=== PATIENT | female | born 1975 | race Caucasian/White ===

== ENCOUNTER 2020-04-21 10:02 | Outpatient (REF) | payer OTHER, SELFPAY ==
--- NOTE | 2020-04-21 10:52 | P.BOP_ITS ---
Brief Operative Note Date of procedure: 04/21/20 Surgeon: Marisel Briones, DO This is doctor Marisel Briones. This is an ultrasound-guided fine-needle aspiration report. Patient name: Guanakito Corcoran : 1975 Date of Examination: 04/21/2020 Referring Physician Is: PCP Indication: Multinodular Thyroid Porcedure: Procedure was explained to the patient. Alternatives, the risk and benefits were discussed. Written consent was obtained. A time-out was also obtained. After sterile preparation, fine-needle aspiration of a Right Mid Pole Superior 2.0 cm thyroid nodule was performed using direct ultrasound guidance to confirm accurate needle placement. Four aspirations were made using 27 gauge needles. Samples were submitted for cytology. 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 Our attention was then turned to a Right Mid Pole Inferior 4.4 cm thyroid nodule. Fine-needle aspiration of this nodule was performed using direct ultrasound guidance to confirm accurate needle placement. Four aspirations were made using 27 gauge needles. Samples were submitted for cytology. 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 Our attention was then turned to a Left Upper Pole 2.3 cm thyroid Nodule. Fine- needle aspiration of this nodule was performed using direct ultrasound guidance to confirm accurate needle placement. Four aspirations were made using 27 gauge needles. Samples were submitted for cytology. 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 The patient tolerated the procedure well. Aftercare instructions were provided. Impression: Uncomplicated fine needle aspiration biopsy of a Right Mid Pole Superior 2.0 cm thyroid nodule, a Right Mid Pole 4.4 cm thyroid nodule and a Left Upper Pole 2.3 cm thyroid nodule under ultrasound guideance. Estimated blood loss (mL): 0
[2020-04-21] MEDS: Lidocaine HCl 1 % MPF 5 ML VIAL SUBCUT (12:26)
== END 2020-04-21 10:03 | disposition home or self-care (01) ==
LOC: HO.US 10:02
PROVIDERS: PCP Internal Medicine; Visit Provider Internal Medicine
DX: E04.2 Nontoxic multinodular goiter (principal)
CPT/HCPCS: 10005; 10006; 88172; 88173; 88177; 88305

== ENCOUNTER 2021-01-13 14:24 | Outpatient (REF) | payer OTHER, SELFPAY ==
--- NOTE | ~2021-01-13 | US_ITS ---
EXAMINATION: US VENOUS ULTRASOUND WITH DOPPLER LOWER EXTREMITY, LEFT CLINICAL INFORMATION: Pain and swelling COMPARISON: None TECHNIQUE: Ultrasound of the deep veins is performed from the hip to the calf with compression sonography and color and pulse Doppler assessment. Spectral analysis with color-flow imaging is performed. FINDINGS: There is normal venous compression and respiratory variation and augmented flow. The visualized common femoral vein, superficial femoral vein, profunda femoral vein, popliteal vein, and the trifurcation region shows no evidence of deep venous thrombosis. There is no significant popliteal fossa cyst. US/US venous duplex LE LT IMPRESSION: No DVT demonstrated in the left lower extremity.
== END 2021-01-13 14:25 | disposition home or self-care (01) ==
LOC: HO.US 14:24
PROVIDERS: Visit Provider Nurse Practitioner Primary Care
DX: I83.812 Varicose veins of left lower extremity with pain (principal); I83.892 Varicose veins of left lower extremity with other complications; I10 Essential (primary) hypertension
CPT/HCPCS: 93971

== ENCOUNTER → 2021-01-18 08:02 | Outpatient (BNVA) | payer OTHER, SELFPAY | PROVIDERS: PCP Internal Medicine; Visit Provider Internal Medicine ==

== ENCOUNTER 2021-07-04 11:24 | Outpatient (REF) | payer OTHER, SELFPAY ==
--- NOTE | ~2021-07-04 | US_ITS ---
EXAMINATION: US THYROID CLINICAL INFORMATION: Nontoxic multinodular goiter. COMPARISON: Ultrasound-guided thyroid biopsy 04/21/2020. CT soft tissue neck 01/21/2020. Thyroid ultrasound 09/10/2019. TECHNIQUE: Linear transducer grayscale and color Doppler examination with attention to the region of the thyroid. FINDINGS: SIZE: Measurements of the thyroid lobes and nodules are given in sagittal, anteroposterior and transverse dimensions respectively. The thyroid gland is enlarged. Right Thyroid Lobe: 7.5 x 3.8 x 2.7 cm, volume 41 mL. Previously 7.1 x 3.6 x 3.6 cm, volume 48 mL. Parenchyma: The gland echotexture is heterogeneous. Thyroid vascularity is increased. Left Thyroid Lobe: 7.7 x 3.1 x 2.6 cm, volume 32 mL. Previously 7.9 x 2.7 x 2.8 cm, volume 31 mL. Parenchyma: The gland echotexture is heterogeneous. Thyroid vascularity is increased. Isthmus: 1.3 cm in maximum AP dimension. Previously 1.2 cm. Estimated total number of nodules greater than or equal to 1 cm: 6 to 10. Resaw Tailer nodules are described as follows: 1. Location: Right mid pole. Size: 4.6 x 1.8 x 4.3 cm, volume 18.6 mL. Previously: 4.1 x 2.5 x 3.6 cm, volume 19.3 mL. Nodule characteristics: Composition: Solid/almost completely solid (2). Echogenicity: Cannot be determined (1). Shape: Not taller than wide (0). Margins: Smooth (0). Echogenic Foci: Punctate echogenic foci (3). ACR TI-RADS total points: 6 ACR TI-RADS category: 4 Significant change in size (>/= 20% in 2 dimensions and minimal increase of 2 mm or 50% or greater increase in volume): Change in features: Change in ACR TI-RADS risk category: 2. Location: Left upper pole. Size: 2.3 x 1.4 x 2.2 cm, volume 3.6 mL. Previously: 2.5 x 2.1 x 2.2 cm, volume 6.0 mL. Nodule characteristics: Composition: Solid/almost completely solid (2). Echogenicity: Hypoechoic (2). Shape: Not taller than wide (0). Margins: Smooth (0). Echogenic Foci: Punctate echogenic foci (3). ACR TI-RADS total points: 7 ACR TI-RADS category: 5 Significant change in size (>/= 20% in 2 dimensions and minimal increase of 2 mm or 50% or greater increase in volume): Change in features: Change in ACR TI-RADS risk category: 3. Location: Left mid pole. Size: 2.6 x 1.6 x 2.0 cm, volume 4.5 mL. Previously: 3.1 x 2.0 x 2.6 cm, volume 8.4 mL. Nodule characteristics: Composition: Solid/almost completely solid (2). Echogenicity: Isoechoic (1). Shape: Not taller than wide (0). Margins: Smooth (0). Echogenic Foci: Punctate echogenic foci (3). ACR TI-RADS total points: 6 ACR TI-RADS category: 4 Significant change in size (>/= 20% in 2 dimensions and minimal increase of 2 mm or 50% or greater increase in volume): Change in features: Change in ACR TI-RADS risk category: 4. Location: Left lower pole. Size: 1.8 x 1.3 x 2.0 cm, volume 2.3 mL. Previously: 1.8 x 1.8 x 1.5 cm, volume 2.5 mL. Nodule characteristics: Composition: Mixed cystic and solid (1). Echogenicity: Hypoechoic (2). Shape: Not taller than wide (0). Margins: Smooth (0). Echogenic Foci: None (0). ACR TI-RADS total points: 3 ACR TI-RADS category: 3 Significant change in size (>/= 20% in 2 dimensions and minimal increase of 2 mm or 50% or greater increase in volume): Change in features: Change in ACR TI-RADS risk category: 5. Location: Left lower pole. Size: 1.3 x 1.2 x 1.4 cm, volume 1.1 mL. Previously: Not documented. Nodule characteristics: Composition: Mixed cystic and solid (1). Echogenicity: Hyperechoic (1). Shape: Not taller than wide (0). Margins: Smooth (0). Echogenic Foci: None (0). ACR TI-RADS total points: 2 ACR TI-RADS category: 2 NODES: No lymphadenopathy is seen in the tissue surrounding the thyroid gland. US/US thyroid IMPRESSION: Enlarged heterogeneous thyroid gland. Newly appreciated 1.3 cm nodule in the inferior left lobe. Otherwise bilateral thyroid nodules are stable. ACR TI-RADS RECOMMENDATION REFERENCE: Ultrasound-guided fine-needle aspiration, followup ultrasound, no further follow up. * TR1 (0 point) and TR 2 (2 points): No FNA or follow up * TR3 (3 points): FNA if more than or equal to 2.5 cm in maximum dimension, followup ultrasound in 1, 3 and 5 years if 1.5 to 2.4 cm in maximum dimension. * TR4 (4-6 points): FNA if more than or equal to 1.5 cm in maximum dimension, followup ultrasound in 1, 2, 3 and 5 years if 1 to 1.4 cm in maximum dimension. * TR5 (more than or equal to 7 points): FNA if more than or equal to 1 cm in maximum dimension, followup ultrasound every year for 5 years if 0.5 to 0.9 cm in maximum dimension. * TR3, TR4 or TR5 nodules that are below the size threshold for follow up receive no follow up.
== END 2021-07-04 11:25 | disposition home or self-care (01) ==
LOC: HO.HMGCX 11:24
PROVIDERS: PCP Internal Medicine; Visit Provider Internal Medicine
DX: E04.2 Nontoxic multinodular goiter (principal)
CPT/HCPCS: 76536

== ENCOUNTER → 2021-07-24 08:32 | Outpatient (BNVA) | payer OTHER, SELFPAY | PROVIDERS: PCP Internal Medicine; Visit Provider Internal Medicine ==

== ENCOUNTER → 2021-08-07 08:40 | Outpatient (BNVA) | payer OTHER, SELFPAY | PROVIDERS: PCP Internal Medicine; Visit Provider Internal Medicine ==

== ENCOUNTER 2021-08-10 12:42 | Outpatient (REF) | payer OTHER, SELFPAY ==
[2021-08-10 14:43] LABS: Alanine Aminotransferase 18 U/L (0-31); Albumin Level 4.3 g/dL (3.5-5.0); Alkaline Phosphatase 78 U/L (39-117); Anion Gap 11 (12-20); Aspartate Amino Transferase 16 U/L (5-31); Bilirubin Total 0.3 mg/dL (0.0-1.0); Blood Urea Nitrogen 13 mg/dL (9-16); Calcium 9.5 mg/dL (8.4-10.2); Carbon Dioxide 30 mmol/L (22-29); Chloride 105 mmol/L (96-108); Estimated Glomerular Filt Rate > 60; Glucose Random 99 mg/dL (60-115); Phosphorus 4.1 mg/dL (2.7-4.5); Potassium 4.9 mmol/L (3.3-5.1); Sodium 141 mmol/L (135-145); Total Protein 7.2 g/dL (6.5-8.0)
[2021-08-10 15:06] LABS: Free T4 (Free Thyroxine) 1.08 ng/dL (0.71-1.85); Thyroid Stimulating Hormone 0.41 uIU/mL (0.32-4.0); Vitamin D 25-OH Total 36.5 ng/mL (>30)
[2021-08-11 08:35] LABS: Triiodothyronine T3 Total 129 ng/dL (76-181)
[2021-08-11 12:47] LABS: Calcium (PTHI) 9.6 mg/dL (8.6-10.2); PTHI 78 pg/mL (14-64)
== END 2021-08-10 12:43 | disposition home or self-care (01) ==
LOC: HO.LAB 12:42
PROVIDERS: PCP Internal Medicine; Visit Provider Internal Medicine
DX: E05.90 Thyrotoxicosis, unspecified without thyrotoxic crisis or storm (principal); E04.2 Nontoxic multinodular goiter; E55.9 Vitamin D deficiency, unspecified; E21.3 Hyperparathyroidism, unspecified
CPT/HCPCS: 36415; 80053; 82306; 83970; 84100; 84439; 84443; 84480

== ENCOUNTER 2021-08-14 12:18 | Outpatient (REF) | payer OTHER, SELFPAY ==
[2021-08-14 14:25] LABS: Creatinine, mg/dL 37.94
[2021-08-14 15:42] LABS: Creatinine, 24Hr Urine 0.7 G/Day (1.0-2.0); Total Volume 24 Hour Urine 1900 mL
[2021-08-15 16:21] LABS: Calcium, 24 Hr Urine 163 mg/24 h; Calcium/Creatinine Ratio 221 mg/g creat (30-275); Creatinine 24Hr Urine 0.74 g/24 h (0.50-2.15)
== END 2021-08-14 12:19 | disposition home or self-care (01) ==
LOC: HO.HMGCLNP 12:18
PROVIDERS: Visit Provider Internal Medicine
DX: E21.3 Hyperparathyroidism, unspecified (principal)
CPT/HCPCS: 82340; 82570

== ENCOUNTER 2021-08-21 12:11 | Outpatient (REF) | payer OTHER, SELFPAY ==
[2021-08-21 17:39] LABS: Creatinine, mg/dL 58.19
[2021-08-21 17:52] LABS: Creatinine, 24Hr Urine 1.3 G/Day (1.0-2.0); Total Volume 24 Hour Urine 2150 mL
[2021-08-24 16:46] LABS: Calcium, 24 Hr Urine 97 mg/24 h; Calcium/Creatinine Ratio 73 mg/g creat (30-275); Creatinine 24Hr Urine 1.33 g/24 h (0.50-2.15)
== END 2021-08-21 12:12 | disposition home or self-care (01) ==
LOC: HO.HMGCLNP 12:11
PROVIDERS: Visit Provider Internal Medicine
DX: E21.3 Hyperparathyroidism, unspecified (principal)
CPT/HCPCS: 82340; 82570

== ENCOUNTER 2021-08-22 13:26 | Outpatient (REF) | payer OTHER, SELFPAY ==
--- NOTE | ~2021-08-22 | MM_ITS ---
EXAMINATION: BONE DENSITOMETRY CLINICAL INDICATION: Hyperparathyroidism. COMPARISON: None (current study represents initial baseline exam). TECHNIQUE: Using a [employer] DXA System (software version: 13.1) manufactured by [employer], dual-energy x-ray absorptiometry was performed of the lumbar spine, left hip, and left forearm radius 33%. The images are of good technical quality. Summary results are attached. FINDINGS: AP SPINE L1-L4: BMD 0.983 g/cm2, Z-score -2.4, T-score -1.6, osteopenia. LEFT FEMUR, NECK: BMD 0.884 g/cm2, Z-score -1.0, T-score -1.1, osteopenia. LEFT FEMUR, TOTAL: BMD 1.063 g/cm2, Z-score 0.1, T-score 0.4, normal. LEFT FOREARM RADIUS 33%: BMD 0.847 g/cm2, Z-score -0.3, T-score -0.3, normal. IDENTIFIED RISK FACTORS: Early menopause, hyperparathyroid, secondary osteoporosis. HISTORY OF FRACTURE: None listed. MEDICATIONS: Vitamin D. MM/XR DEXA appendicular skeleton IMPRESSION: 1. DIAGNOSIS: Osteopenia based on the lowest T-score value of -1.6 in the lumbar spine applying World Health Organization criteria. 2. 10-YEAR FRACTURE RISK PREDICTION, FRAX: Major osteoporotic fracture (clinical spine, forearm, hip or shoulder) 3.1%. Hip fracture 0.2%. 3. Treatment Recommendations: NOF guidelines recommend consideration for treatment in postmenopausal women and men age 50 and older presenting with the following: -A hip or vertebral (clinical or morphometric) fracture. -T-score less than or equal to -2.5 at the femoral neck or spine after appropriate evaluation to exclude secondary causes. -Low bone mass at the hip or spine and a 10-year fracture probability by FRAX of greater than or equal to 3% for hip fracture or greater than or equal to 20% for major osteoporotic fracture based on the [place] adapted WHO algorithm. 4. Other Recommendations: All treatment decisions require clinical judgment and consideration of individual patient factors, including patient preferences, comorbidities, previous drug use, risk factors not captured in the FRAX model (e.g. frailty, falls, vitamin D deficiency, increased bone turnover, interval significant decline in bone density) and possible under or overestimation of fracture risk by FRAX. Additional medical evaluation for secondary cause of low bone mineral density may be appropriate. FUTURE SCAN RECOMMENDATION: People with diagnosed cases of osteoporosis or at high risk for fracture should have regular bone mineral density tests. For patients eligible for Medicare, routine testing is allowed once every 2 years. The testing frequency can be increased to one year for patients who have rapidly progressing disease, those who are receiving or discontinuing medical therapy to restore bone mass, or have additional risk factors.
== END 2021-08-22 13:27 | disposition home or self-care (01) ==
LOC: HO.MAMMO 13:26
PROVIDERS: PCP Internal Medicine; Visit Provider Internal Medicine
DX: Z13.820 Encounter for screening for osteoporosis (principal); E21.3 Hyperparathyroidism, unspecified; M85.80 Other specified disorders of bone density and structure, unspecified site; Z78.0 Asymptomatic menopausal state
CPT/HCPCS: 77081

== ENCOUNTER 2021-10-19 12:49 | Outpatient (REF) | payer OTHER, SELFPAY ==
--- NOTE | ~2021-10-19 | XR_ITS ---
EXAMINATION: XR CHEST CLINICAL INFORMATION: Screening for respiratory TB. COMPARISON: None TECHNIQUE: 2 views of the chest were obtained. FINDINGS: No significant abnormality is noted involving the heart, lungs, mediastinum, bony thorax or soft tissues. XR/XR chest 2V IMPRESSION: Unremarkable chest examination.
== END 2021-10-19 12:50 | disposition home or self-care (01) ==
LOC: HO.HMGCX 12:49
PROVIDERS: Visit Provider Internal Medicine
DX: Z11.1 Encounter for screening for respiratory tuberculosis (principal)
CPT/HCPCS: 71046

== ENCOUNTER → 2021-11-22 09:23 | Outpatient (BNVA) | payer OTHER, SELFPAY | PROVIDERS: PCP Internal Medicine; Visit Provider Internal Medicine | DX: Z13.89 Encounter for screening for other disorder (principal) ==

== ENCOUNTER 2022-01-30 09:31 | Outpatient (REF) | payer OTHER, SELFPAY ==
[2022-01-30 10:32] LABS: Alanine Aminotransferase 22 U/L (0-31); Albumin Level 4.5 g/dL (3.5-5.0); Alkaline Phosphatase 76 U/L (39-117); Anion Gap 14 (12-20); Aspartate Amino Transferase 18 U/L (5-31); Bilirubin Total 0.5 mg/dL (0.0-1.0); Blood Urea Nitrogen 12 mg/dL (9-16); Carbon Dioxide 27 mmol/L (22-29); Chloride 106 mmol/L (96-108); Estimated Glomerular Filt Rate > 60; Glucose Random 106 mg/dL (60-115); Phosphorus 3.9 mg/dL (2.7-4.5); Potassium 4.7 mmol/L (3.3-5.1); Sodium 142 mmol/L (135-145); Total Protein 7.3 g/dL (6.5-8.0)
[2022-01-30 10:53] LABS: Free T4 (Free Thyroxine) 1.13 ng/dL (0.71-1.85); Thyroid Stimulating Hormone 0.44 uIU/mL (0.32-4.0); Vitamin D 25-OH Total 29.7 ng/mL (>30)
[2022-01-31 10:42] LABS: Calcium (PTHI) 9.5 mg/dL (8.6-10.2); PTHI 97 pg/mL (16-77)
== END 2022-01-30 09:32 | disposition home or self-care (01) ==
LOC: HO.LAB 09:31
PROVIDERS: PCP Internal Medicine; Visit Provider Internal Medicine
DX: E21.3 Hyperparathyroidism, unspecified (principal); E55.9 Vitamin D deficiency, unspecified; E05.90 Thyrotoxicosis, unspecified without thyrotoxic crisis or storm
CPT/HCPCS: 36415; 80053; 82306; 83970; 84100; 84439; 84443

== ENCOUNTER 2022-02-15 10:03 | Outpatient (REF) | payer OTHER, SELFPAY ==
[2022-02-15 11:45] LABS: Total Volume 24 Hour Urine 2475 mL
[2022-02-15 12:28] LABS: Creatinine, 24Hr Urine 0.8 G/Day (1.0-2.0); Creatinine, mg/dL 34.24
[2022-02-16 17:36] LABS: Calcium, 24 Hr Urine 94 mg/24 h; Calcium/Creatinine Ratio 106 mg/g creat (30-275); Creatinine 24Hr Urine 0.89 g/24 h (0.50-2.15)
== END 2022-02-15 10:04 | disposition home or self-care (01) ==
LOC: HO.HMGCLNP 10:03
PROVIDERS: Visit Provider Internal Medicine
DX: E21.3 Hyperparathyroidism, unspecified (principal)
CPT/HCPCS: 82340; 82570

== ENCOUNTER 2022-04-25 09:31 | Outpatient (REF) | payer OTHER, SELFPAY ==
[2022-04-25 11:07] LABS: Alanine Aminotransferase 23 U/L (0-31); Albumin Level 4.2 g/dL (3.5-5.0); Alkaline Phosphatase 70 U/L (39-117); Anion Gap 13 (12-20); Aspartate Amino Transferase 17 U/L (5-31); Bilirubin Total 0.3 mg/dL (0.0-1.0); Blood Urea Nitrogen 15 mg/dL (9-16); Calcium 8.6 mg/dL (8.4-10.2); Carbon Dioxide 27 mmol/L (22-29); Chloride 106 mmol/L (96-108); Estimated Glomerular Filt Rate > 60; Glucose Random 106 mg/dL (60-115); Phosphorus 4.4 mg/dL (2.7-4.5); Potassium 4.6 mmol/L (3.3-5.1); Sodium 141 mmol/L (135-145); Total Protein 6.7 g/dL (6.5-8.0)
[2022-04-25 11:30] LABS: Free T4 (Free Thyroxine) 1.42 ng/dL (0.71-1.85); Thyroid Stimulating Hormone 0.68 uIU/mL (0.32-4.0); Vitamin D 25-OH Total 39.1 ng/mL (>30)
[2022-04-26 15:57] LABS: Calcium (PTHI) 8.4 mg/dL (8.6-10.2); PTHI 40 pg/mL (16-77)
== END 2022-04-25 09:32 | disposition home or self-care (01) ==
LOC: HO.LAB 09:31
PROVIDERS: PCP Internal Medicine; Visit Provider Internal Medicine
DX: E04.2 Nontoxic multinodular goiter (principal); E05.90 Thyrotoxicosis, unspecified without thyrotoxic crisis or storm; E21.3 Hyperparathyroidism, unspecified; E55.9 Vitamin D deficiency, unspecified
CPT/HCPCS: 36415; 80053; 82306; 83970; 84100; 84439; 84443

== ENCOUNTER 2022-05-15 13:41 | Inpatient (IN) | payer OTHER, SELFPAY ==
--- NOTE | ~2022-05-15 | CT_ITS ---
EXAMINATION: CT ABDOMEN AND PELVIS WITH CONTRAST CLINICAL INFORMATION: Diffuse abdominal pain COMPARISON: Abdominal ultrasound on 03/15/2022 TECHNIQUE: Multidetector volumetric images were obtained from the superior aspect of the liver through the pubic symphysis following administration 85 mL of Omnipaque 350 intravenous contrast. Sagittal and coronal reformatted images were obtained on the technologist's workstation. Oral contrast: No This CT examination was performed using dose optimization techniques as appropriate, variously including the following: *Automated exposure control *Adjustment of mA and/or kV according to patient size (this includes techniques or standardized protocols for targeted exams where dose is matched to indication/reason for exam; i.e. extremities or head) *Use of iterative reconstruction technique DLP: 623 mGy-cm FINDINGS: LUNG BASES: The visualized lung bases are unremarkable. LIVER, GALLBLADDER, AND BILIARY TREE: There is a 1.2 cm cyst in the right hepatic lobe. The liver is normal in size, shape, and attenuation. No focal hepatic lesion or biliary ductal dilatation is present. The gallbladder is unremarkable with no evidence of radiopaque gallstones, gallbladder wall thickening, or obvious pericholecystic inflammatory changes. PANCREAS: Unremarkable. SPLEEN: Unremarkable. ADRENAL GLANDS: Unremarkable. KIDNEYS AND URETERS: The kidneys are normal in size, shape, and attenuation. No hydronephrosis, hydroureter, or calculi seen. No perinephric stranding. BLADDER: Unremarkable. GASTROINTESTINAL TRACT: The small and large bowel are unremarkable. The appendix measures up to 0.8 cm. There are mild inflammatory changes/fat stranding in the right lower quadrant adjacent to the appendix. ABDOMINAL WALL: No significant hernia is appreciated. LYMPH NODES: Multiple mildly enlarged right lower quadrant mesenteric lymph nodes. VASCULAR: Unremarkable. PELVIC VISCERA: The uterus and adnexa are unremarkable. OSSEOUS STRUCTURES: Unremarkable. CT/CT abdomen pelvis w IV con IMPRESSION: 1. Mild inflammatory changes/fat stranding in the right lower quadrant adjacent to the appendix. The appendix measures up to 0.8 cm. Findings are suspicious for early or mild appendicitis. 2. Multiple mildly enlarged right lower quadrant mesenteric lymph nodes. Fleischner guidelines were followed.
--- NOTE | ~2022-05-15 | US_ITS ---
EXAMINATION: US ABDOMEN LIMITED CLINICAL INFORMATION: Right upper quadrant/epigastric pain. COMPARISON: None TECHNIQUE: Real-time imaging of the right upper quadrant abdominal viscera. FINDINGS: PANCREAS: Normal. LIVER: There is anechoic cyst in the right hepatic lobe measuring 1.3 x 0.8 x 1.1 cm. The liver is normal in size. The liver contour is normal. Parenchymal echogenicity is normal. No focal hepatic lesion. There is no intrahepatic biliary duct dilatation seen. GALLBLADDER: Mild thickening of the gallbladder wall. The gallbladder is physiologically distended without evidence of stones, sludge, polyps, wall thickening or pericholecystic fluid. COMMON BILE DUCT: Normal in caliber measuring 0.5 cm in diameter. RIGHT KIDNEY: Normal. No hydronephrosis. No renal calculi or focal parenchymal lesions. The kidney measures 10.4 cm in maximum dimension. FREE FLUID: None. US/US abdomen limited IMPRESSION: 1. Right hepatic lobe cyst measuring 1.3 cm. 2. Mild thickening of the gallbladder wall but no echogenic stones or tenderness in the right upper quadrant. 3. Visualized pancreas, right kidney and CBD appears unremarkable.
[2022-05-15 14:01] VITALS: BP 128/92; PULSE 87; RESP 18; TEMP 36.2; O2SAT 99; BMI 39.1
[2022-05-15 14:14] LABS: MANUAL DIFF FLAG NO
[2022-05-15 14:17] LABS: Basophils Percent Auto 0.4 % (0-2); Eosinophils Absolute Auto 0.1 X10*3/uL (0.0-0.4); Eosinophils Percent Auto 1.2 % (0-4); Hemoglobin 13.3 g/dl (12.0-16.0); Imm Gran Abs Auto 0.02 X10*3/uL (0.00-0.03); Imm Gran Pct Auto 0.2 % (0.0-0.4); Lymphocytes Percent Auto 30.6 % (20-40); Mean Corpuscular HGB Conc 32.4 g/dl (31.0-35.0); Mean Corpuscular Hemoglobin 27.3 pg (27.0-33.0); Mean Platelet Volume 9.7 fL (9.4-12.3); Monocytes Absolute Auto 0.6 X10*3/uL (0.1-1.2); Monocytes Percent Auto 6.5 % (2-11); Neutrophils Absolute Auto 5.9 x10*3/uL (2.0-8.3); Neutrophils Percent Auto 61.1 % (45-73); Platelet Count 390 X10*3/uL (160-400); Red Blood Count 4.88 X10*6/uL (4.20-5.50); Red Cell Distribution Width 12.2 % (11.0-16.0); White Blood Count 9.7 X10*3/uL (4.8-10.8)
[2022-05-15 14:49] LABS: Alanine Aminotransferase 25 U/L (0-31); Albumin Level 4.8 g/dL (3.5-5.0); Alkaline Phosphatase 79 U/L (39-117); Anion Gap 15 (12-20); Aspartate Amino Transferase 18 U/L (5-31); Bilirubin Direct 0.2 mg/dL (0.0-0.5); Bilirubin Total 0.5 mg/dL (0.0-1.0); Blood Urea Nitrogen 18 mg/dL (9-16); Carbon Dioxide 29 mmol/L (22-29); Chloride 100 mmol/L (96-108); Creatinine Clr Calc Pharmacy 94.6; Estimated Glomerular Filt Rate > 60; Glucose Random 86 mg/dL (60-115); Lipase 22 U/L (8-78); Potassium 3.7 mmol/L (3.3-5.1); Sodium 140 mmol/L (135-145); Total Protein 7.9 g/dL (6.5-8.0)
[2022-05-15 16:12] VITALS: BP 135/95; PULSE 81; RESP 16; TEMP 36.7; O2SAT 100
--- NOTE | 2022-05-15 16:38 | ED.ABDPAIN ---
HPI - Abdominal Pain General Chief Complaint: Abdominal Pain Stated Complaint: Abd pain w rectal bleed sent by PCP Time Seen by Provider: 05/15/22 16:27 Source: patient Mode of arrival: ambulatory Limitations: no limitations History of Present Illness HPI narrative: This is a very pleasant 47 years old female presented to the emergency department with chief complaint of abdominal cramps diffuse at x2 days, also liquid stools, this morning she has so little bit of blood in the stools. MD elicited complaint: abdominal pain Pertinent past history: none Onset (ago): day(s) (2) Pain Consistency: intermittent Location: diffuse Quality: cramping Radiation: none Migration to: no migration Exacerbating factors: nothing Associated symptoms: denies other symptoms Related Data Previous Rx's Medication Instructions Recorded cholecalciferol (vitamin D3) 25 25 mcg PO DAILY 30 days #30 caps 08/07/21 mcg (1,000 unit) capsule calcium carb,cit ER 600 mg-vit D3 1 tab PO BID 30 days #60 tabs 02/07/22 12.5 mcg (500 unit) tablet,ext.rel (Citracal-D3 Slow Release) Allergies Allergy/AdvReac Type Severity Reaction Status Date / Time aspirin Allergy Unknown stomach Uncoded 02/07/22 13:34 upset Review of Systems Constitutional: Reports no additional constitutional complaints Reports system reviewed and no additional complaints, except as documented Cardiovascular: Reports no additional cardiovascular complaints Respiratory: Reports no additional respiratory complaints Gastrointestinal: Reports no additional gastrointestinal complaints PMFSH Past Medical History Medical History Dysphagia HTN (hypertension) Hyperparathyroidism Multinodular thyroid Subclinical hyperthyroidism Vitamin D deficiency Surgical History No pertinent past surgical history Family History Family History Father Heart disease Mother Thyroid disease Social History Social History Alcohol intake: never Patient Tobacco Use Status: Never used Tobacco Advance Directives: No Advance Directives Information Provided: No Physical Exam ED Vital Signs: Vital Signs - 24 hr 05/15/22 14:01 05/15/22 16:12 05/15/22 17:30 Temperature 97.2 F 98.1 F 98.4 F Pulse Rate 87 81 75 Respiratory Rate 18 16 Blood Pressure 128/92 H 135/95 H 131/89 Pulse Oximetry 99 100 97 Oxygen Delivery Method Room Air Room Air Room Air BMI result Body Mass Index 39.1 Const Other: She looks well she is not toxic-appearing General: cooperative Nutritional Appearance: average body habitus Orientation/consciousness: oriented to person and patient oriented x3 HENMT Head: Yes normal to inspection Ears: hearing grossly normal bilaterally General nose exam: Normal external nose present Face and sinus: Yes normal facial exam Mouth: Normal oral and palatal mucosa present Teeth and gingiva: dentition normal Throat: Yes posterior oropharynx normal Neck Neck: Yes normal visual inspection and Yes full ROM Thyroid: Thyroid normal Chest Chest palpation & inspection: normal inspection of the chest Resp Effort & Inspection: normal respiratory effort Auscultation: clear to auscultation bilaterally Cardio Jugular venous distension: no JVD Rate: regular rate Rhythm: regular rhythm GI Inspection: Yes normal to inspection Palpation (GI): Soft to palpation, not firm and nontender Rectal Exam - Female: visual inspection normal, normal sphincter tone and heme negative stool Skin General skin exam: no rashes or lesions noted, elasticity normal and turgor normal Rashes: no rashes Neuro General: oriented to person and patient oriented x3 Cranial nerves: Yes CN's II-XII intact bilaterally Course Reevaluation(s) Reevaluation #1: spoke with surgeon Dr Rodrigues will admit Medications Administered Discontinued Medications Generic Name Dose Route Start Last Admin Trade Name Freq PRN Reason Stop Dose Admin Sodium Chloride 1,000 mls @ 999 mls/hr 05/15/22 16:45 05/15/22 18:09 Ns IVCONT 05/15/22 17:45 999 mls/hr .Q1H1M NICHOLE Administration Iohexol 100 ml 05/15/22 18:31 05/15/22 18:31 Iohexol 350 Mg/Ml 100 Ml Infus..Btl IV 05/15/22 18:32 85 ml ONCE ONE Administration MDM - Abdominal Pain Lab Data Result diagrams: 05/15/22 14:10 05/15/22 14:10 Labs: Lab Results 05/15/22 05/15/22 05/15/22 Range/Units 14:10 14:10 16:48 WBC 9.7 (4.8-10.8) X10*3/uL RBC 4.88 (4.20-5.50) X10*6/uL Hgb 13.3 (12.0-16.0) g/dl Hct 41.0 (37.0-47.0) % MCV 84.0 (80.0-98.0) fL MCH 27.3 (27.0-33.0) pg MCHC 32.4 (31.0-35.0) g/dl RDW 12.2 (11.0-16.0) % Plt Count 390 (160-400) X10*3/uL MPV 9.7 (9.4-12.3) fL Immature Gran % (Auto) 0.2 (0.0-0.4) % Neut % (Auto) 61.1 (45-73) % Lymph % (Auto) 30.6 (20-40) % [place] % (Auto) 6.5 (2-11) % Eos % (Auto) 1.2 (0-4) % Baso % (Auto) 0.4 (0-2) % Lymph # (Auto) 3.0 (1.2-4.9) X10*3/uL [place] # (Auto) 0.6 (0.1-1.2) X10*3/uL Eos # (Auto) 0.1 (0.0-0.4) X10*3/uL Baso # (Auto) 0.0 (0.0-0.2) X10*3/uL Abs Immat Gran (auto) 0.02 (0.00-0.03) X10*3/uL Absolute Neuts (auto) 5.9 (2.0-8.3) x10*3/uL Absolute Nucleated RBC 0.000 (0.0-0.012) X10*3/uL Nucleated RBC % (auto) 0.0 (0.0-0.2) /100WBC Sodium 140 (135-145) mmol/L Potassium 3.7 (3.3-5.1) mmol/L Chloride 100 (96-108) mmol/L Carbon Dioxide 29 (22-29) mmol/L Anion Gap 15 (12-20) BUN 18 H (9-16) mg/dL Creatinine 0.76 (0.5-1.4) mg/dL Estim Creat Clear Calc 94.6 Estimated GFR > 60 Random Glucose 86 (60-115) mg/dL Calcium 9.0 (8.4-10.2) mg/dL Total Bilirubin 0.5 (0.0-1.0) mg/dL Direct Bilirubin 0.2 (0.0-0.5) mg/dL AST 18 (5-31) U/L ALT 25 (0-31) U/L Alkaline Phosphatase 79 (39-117) U/L Total Protein 7.9 (6.5-8.0) g/dL Albumin 4.8 (3.5-5.0) g/dL Lipase 22 (8-78) U/L Stool Occult Blood NEGATIVE (NEGATIVE) Imaging Data CT scan - abdomen: Radiologist's impression: bowel are unremarkable. The appendix measures up to 0.8 cm. There are mild inflammatory changes/fat stranding in the right lower quadrant adjacent to the appendix. ABDOMINAL WALL: No significant hernia is appreciated.? LYMPH NODES: Multiple mildly enlarged right lower quadrant mesenteric lymph nodes. VASCULAR: Unremarkable. PELVIC VISCERA: The uterus and adnexa are unremarkable.? OSSEOUS STRUCTURES: Unremarkable.? CT/CT abdomen pelvis w IV con IMPRESSION: 1.? Mild inflammatory changes/fat stranding in the right lower quadrant adjacent to the appendix. The appendix measures up to 0.8 cm. Findings are suspicious for early or mild appendicitis. 2.? Multiple mildly enlarged right lower quadrant mesenteric lymph nodes. ? Fleischner guidelines were followed. Dictated By: Teresa Luz MD Signed By: <Electronically signed by Teresa Luz MD in [place]> 05/15/221842 DD/ 31 TD/TT:? Highway Painter: PN Discharge Plan Discharge Clinical Impression: Appendicitis Patient Disposition: Admitted As Inpatient
[2022-05-15 16:53] LABS: OBS Int Ctl Valid YES; OBS1 NEGATIVE (NEGATIVE)
--- NOTE | 2022-05-15 17:06 | PC.NURSE ---
PT reports abd pain since Saturday, today had one episode of blood in stool this AM. ABD is tender to touch in the umbilical region, + bowel sounds on all quadrants.
[2022-05-15 17:30] VITALS: BP 131/89; PULSE 75; TEMP 36.9; O2SAT 97
[2022-05-15] MEDS: 0.9 % Sodium Chloride 1,000 ML 999 ML IVCONT (18:09)
[2022-05-15] MEDS: iohexoL 350 MG/ML 100 ML INFUS..BTL IV (18:31)
--- NOTE | 2022-05-15 19:20 | P.HPGS_ITS ---
History of Present Illness History of Present Illness Date of Service: 05/16/22 Chief complaint: Abd pain w rectal bleed sent by PCP Narrative: Guanakito Corcoran is a 47 year old female originally from [place] who has a recent diagnosis of hypertension as well as a history of thyroid disease being managed by operative resection and T4 replacement. She notes that several days ago, she developed periumbilical cramping and frequent stools. The cramping progressively occurred without diarrhea but she was having soft stools. After several days of having bowel movements with great frequency, the patient saw some blood, which was certainly less than a quarter cup and never filled the bowl. She contacted her PCP who directed her to the emergency department and workup to determine etiology for abdominal pain was undertaken. She states that no one else at home is ill with any kind of a GI bug. She denies any unusual foods and denies any personal or family history of inflammatory bowel disease. She notes that her mother had gastric bleeding but is unsure of the actual etiology. She is unaware of any GI malignancy in the immediate family. Patient underwent an abdominal ultrasound that showed gallbladder wall thickening, but in the setting of normal LFTs and a normal white count, a CT scan was ordered which was interpreted as early appendicitis. I was asked to admit the patient and help direct her care. The patient has received 2 doses of Zosyn since admission. She denies any right lower quadrant pain and continues to note that she has periumbilical discomfort and frequency of bowel movements which is her presenting complaint. She clearly states that she never had any right lower quadrant pain. She does note that she has a bed-bound disabled son at home, and we discussed the importance of focusing on herself and her health since progression of appendicitis to a ruptured appendix would require her to be in the hospital for a longer period of time after surgery. The option of an websphere commerce developer was discussed with the patient, but she declined. Review of Systems Review of Systems: Yes all other systems are reviewed and are negative Constitutional: Constitutional: Reports as per [facility] Past Medical History Medical History Dysphagia HTN (hypertension) Hyperparathyroidism Multinodular thyroid Subclinical hyperthyroidism Vitamin D deficiency Family History Family History Father Heart disease Mother Thyroid disease Surgical History Surgical History No pertinent past surgical history Social History Social History Household Members: Children Housing: House Do you presently have visiting nurse or other home services: No Alcohol intake: never Patient Tobacco Use Status: Never used Tobacco Use of substances other than those prescribed or required for medical reasons: No Have you been hit, kicked, punched, or otherwise hurt by someone within the past year? If so, by whom?: No Do you feel safe in your current relationship?: Yes Is there a partner from a previous relationship who is making you feel unsafe now?: No Are you made to feel afraid or neglected: No Confucianism Healthcare Practices: Denominational Advance Directives: No Advance Directives Information Provided: No Do you have thoughts of harming others: None Do you have a plan to hurt others: No Plan Recently lost weight without trying: Yes How much weight loss: 2-13 pounds Eating poorly because of decreased appetite: Yes Nutrition screen score: 4 Nutrition Risks: No Nutritional Risk Patient : No : No Poor oral hygiene: Yes Meds Allergies Allergy/AdvReac Type Severity Reaction Status Date / Time aspirin Allergy Unknown stomach Uncoded 02/07/22 13:34 upset Home Medications Medication Instructions Recorded Confirmed Last Taken Type amlodipine 5 mg tablet 1 tab PO DAILY@1200 05/15/22 05/15/22 05/14/22 History famotidine 20 mg tablet 1 tab PO BEDTIME 05/15/22 05/15/22 05/14/22 History hydrochlorothiazide 25 mg tablet 1 tab PO DAILY 05/15/22 05/15/22 05/15/22 History levothyroxine 137 mcg tablet 1 tab PO DAILY 05/15/22 05/15/22 05/15/22 History Physical Exam Vital Signs: Vital Signs: Last Vital Signs Temp 98.4 F 05/15/22 17:30 Pulse 75 05/15/22 17:30 Resp 16 05/15/22 16:12 BP 131/89 05/15/22 17:30 Pulse Ox 97 05/15/22 17:30 O2 Del Method 05/15/22 17:30 BMI result Body Mass Index 39.1 The patient is non-toxic & in good spirits NC/AT, PERRLA, EOMI Mood, affect & judgment all appear appropriate Sclera anicteric conjunctiva pink and moist Oropharynx is clear with no aphthous ulcers, Mallampati class 4, mucous membranes moist Neck is supple with no masses, adenopathy or bruits A well-healed transfer lower neck incision with scar is noted with no masses nor tenderness Heart is regular, normal S1-S2 no rubs or murmurs Lungs are clear and equal anteriorly with no audible wheezing, rubs or dullness to percussion Abdomen is obese with no demonstrable hernias. No HSM, rebound, rigidity, guarding, masses or bruits are present. On deep palpation, no abdominal tenderness, especially in the right lower quadrant is present. The patient reports some vague periumbilical discomfort and feelings of tenesmus. Rectal exam is deferred Skin has good turgor and is free of rashes Extremities free of cyanosis clubbing edema Results Results Labs: Short CBC 05/15/22 Range/Units 14:10 WBC 9.7 (4.8-10.8) X10*3/uL Hgb 13.3 (12.0-16.0) g/dl Hct 41.0 (37.0-47.0) % Plt Count 390 (160-400) X10*3/uL BMP 05/15/22 14:10 Sodium 140 Potassium 3.7 Chloride 100 Carbon Dioxide 29 BUN 18 H Creatinine 0.76 Calcium 9.0 Liver Function 05/15/22 Range/Units 14:10 Total Bilirubin 0.5 (0.0-1.0) mg/dL Direct Bilirubin 0.2 (0.0-0.5) mg/dL AST 18 (5-31) U/L ALT 25 (0-31) U/L Alkaline Phosphatase 79 (39-117) U/L Albumin 4.8 (3.5-5.0) g/dL Abdomen CT scan report/results: report reviewed and image reviewed CT scan - pelvis: report reviewed and image reviewed Additional studies: In my review and interpretation of the CT, on the coronal images, there appears to be air in the lumen of the appendix. While there is some adipose streaking surrounding the appendix, a patent appendix on CT is unlikely to represent a typical case of appendicitis. Assessment and Plan (1) Appendicitis: Status: Acute (2) Hyperparathyroidism: Status: Acute (3) Vitamin D deficiency: Status: Acute (4) Morbid obesity due to excess calories: Status: Acute Plan Had a long discussion with the patient and also offered interpretive services if she would be more comfortable given the complexity of our discussion, but she declined this noting that she is full in [place]. While it is possible the patient might have early appendicitis, the lack of localizing peritoneal sign over the appendix makes this diagnosis equivocal in my experience. Given this, we discussed the option of a diagnostic laparoscopy and appendectomy with the inherent risks of negative exploration that would be determined by pathology, bleeding, infection, need for another operation in the event of a complication and possible need for open surgery. Initially, the patient stated she would consider this but only if I could guarantee that she would be home this evening. We also discussed the option of antibiotic treatment since there are encouraging dated that show that early appendicitis or even cate appendicitis can be treated with IV and then oral antibiotics. The pros and cons of this approach including delayed presentation and ultimately need for surgery at a later date, possibly even within a few days was discussed and apparently understood. After long discussion with the patient, she noted that at no point has she had right lower quadrant pain and she is very hesitant to consider what might be an unnecessary operation. She would prefer medical management we will continue Zosyn and NPO for now. I will reassess her in a few hours around noon. If she is stable or clinically improved, outpatient Augmentin and a regular diet may be in order. If she clinically worsens, will re-evaluate the plan. Patient is never had a colonoscopy and her obesity puts her at risk for colon polyps and the unknown family history of some sort of gastrointestinal bleeding should be evaluated as part of her routine healthcare on an outpatient basis. OR is canceled for now. Will reassess at noon. Continue NPO, IVF and Zosyn. ADDENDUM, NOON The patient is seen in re-examined. Her brother and sister (sister is an RN) are present and the patient gave permission to discuss her case with them. After summary, the patient continues to deny any right lower quadrant pain and on physical exam has no tenderness or discomfort. Will start clear liquids. The patient requested a paper antibiotic prescription since it is the day before Thanksgiving they were concerned about pharmacies closing early. We will plan to discharge if she tolerates clear liquids and she will stay on antibiotics for we can follow up with me next week. If she clinically worsens, she will report to the emergency room I will see the surgeon on-call for reassessment. Quality Stroke Does the patient have a stroke diagnosis?: No VTE Prior VTE?: No VTE Risk Level:: Surgical - moderate VTE Device Contraindication: N/A - Device Ordered VTE Drug Contraindication: Treatment Not Indicated Procedures Date of Service Date of Service: 05/16/22
[2022-05-15 20:07] LABS: COVID-19 Test Negative (Negative); IDNOW Serial# 16C4AD1C
--- NOTE | 2022-05-15 20:33 | PHA.MEDREC ---
Pharmacy Consult ? Medication Reconciliation Pharmacy has completed the medication reconciliation.
[2022-05-15] MEDS: Piperacillin Sodium/Tazobactam 3.375 GM in 0.9 % Sodium Chloride 50 ML IV (21:14)
[2022-05-15] MEDS: Lactated Ringers 1,000 ML 100 ML IVCONT (22:10)
[2022-05-16] VITALS: BP 136/81; PULSE 80; RESP 15; TEMP 36.3; O2SAT 96
[2022-05-16 00:44] VITALS: BMI 39.2
[2022-05-16] MEDS: Piperacillin Sodium/Tazobactam 3.375 GM in 0.9 % Sodium Chloride 50 ML IV ×2 (01:49→08:41)
[2022-05-16 03:32] VITALS: BP 114/61; PULSE 66; RESP 14; TEMP 36.1; O2SAT 97
[2022-05-16 07:34] VITALS: BP 130/88; PULSE 73; RESP 16; TEMP 36.6; O2SAT 99
[2022-05-16] MEDS: Lactated Ringers 1,000 ML 100 ML IVCONT (08:38)
[2022-05-16] MEDS: hydroCHLOROthiazide 25 MG TABLET PO (08:39)
[2022-05-16] MEDS: Docusate Sodium 100 MG CAPSULE PO (08:39)
[2022-05-16] MEDS: Levothyroxine Sodium 112 MCG TABLET PO (08:40)
[2022-05-16] MEDS: Levothyroxine Sodium 25 MCG TABLET PO (08:40)
[2022-05-16] MEDS: 0.9 % Sodium Chloride Flush 3 ML SYRINGE IVFLUSH (08:41)
--- NOTE | 2022-05-16 11:58 | PC.NURSE ---
Per dr Rodrigues pt intitated on clear liquid diet. Paper script for augmentin given to pt and copy placed in pt's chart
[2022-05-16 12:00] VITALS: BP 129/76; PULSE 78; RESP 18; TEMP 36.4; O2SAT 95
--- NOTE | 2022-05-16 12:44 | PM.DS ---
DS: Providers Provider Date of Service: 05/16/22 Date of admission: 05/15/22 19:27 Primary care physician: Kathy Cox MD Consults: 05/15/22 19:12 Consult to General Surgery Stat Consulting Provider: Gautam Rodrigues Reason for consultation: appendicitis Has provider been notified: Yes DS: Diagnosis Discharge Diagnosis (1) Appendicitis: Status: Acute (2) Hyperparathyroidism: Status: Acute (3) Vitamin D deficiency: Status: Acute (4) Morbid obesity due to excess calories: Status: Acute DS: Summary Hospital Course Hospital Course: See H&P for full details. Briefly, the patient is a 47-year-old woman who developed periumbilical crampy and frequency of bowel movements with some diarrhea that turned into a bloody bowel movement. With her lower abdominal pain and rectal bleeding, her PCP advised to go to the emergency room. She was noted to have a normal white blood cell count and normal workup regarding labs, however, abdominal ultrasound showed borderline gallbladder wall thickening, consequently a CT of the abdomen and pelvis was ordered which showed an 8 mm appendix with some fat streaking that was possibly consistent with early appendicitis. Patient was admitted to the hospital for bowel rest and IV antibiotics. She never had any right lower quadrant pain and continued to have some periumbilical cramping and bowel movements. We discussed options of medical management in assuming this is an early case of appendicitis and antibiotics versus operative intervention/lap appy. The patient preferred to avoid unnecessary surgery. After re-examining her and seeing there was no progression of abdominal pain to the right lower quadrant. She was started on clears and then advanced to regular diet and discharged in improved condition. Discharge instructions were discussed with the patient and her family at her request. She will continue Augmentin, 875 mg q.12 hours for 1 week, report to the emergency room if she starts to develop right lower quadrant pain, vomiting, fevers over 101, rectal bleeding that fills the toilet and otherwise will follow-up with me next 05/21/2022. Condition at the time of discharge: Improved Time Spent with Patient Time attestation: Total time spent providing and/or coordinating discharge services: Discharge coordination time: Greater than 30 minutes Quality: Safe Use of Opioids Does Pt have an Active Cancer Diagnosis on the Problem List?: No Quality: Stroke Does the patient have a stroke diagnosis?: No Physical Exam Vital Signs: Vital Signs: Last Vital Signs Temp 97.8 F 05/16/22 07:34 Pulse 73 05/16/22 07:34 Resp 16 05/16/22 07:34 BP 130/88 05/16/22 07:34 Pulse Ox 99 05/16/22 07:34 O2 Del Method 05/16/22 07:34 BMI result Body Mass Index 39.2 DS: Data Data Completed and Pending Labs on day of discharge: Laboratory Results - last 24 hr 05/15/22 05/15/22 05/15/22 14:10 14:10 16:48 WBC 9.7 RBC 4.88 Hgb 13.3 Hct 41.0 MCV 84.0 MCH 27.3 MCHC 32.4 RDW 12.2 Plt Count 390 MPV 9.7 Immature Gran % (Auto) 0.2 Neut % (Auto) 61.1 Lymph % (Auto) 30.6 Stearns % (Auto) 6.5 Eos % (Auto) 1.2 Baso % (Auto) 0.4 Lymph # (Auto) 3.0 Stearns # (Auto) 0.6 Eos # (Auto) 0.1 Baso # (Auto) 0.0 Abs Immat Gran (auto) 0.02 Absolute Neuts (auto) 5.9 Absolute Nucleated RBC 0.000 Nucleated RBC % (auto) 0.0 Sodium 140 Potassium 3.7 Chloride 100 Carbon Dioxide 29 Anion Gap 15 BUN 18 H Creatinine 0.76 Estim Creat Clear Calc 94.6 Estimated GFR > 60 Random Glucose 86 Calcium 9.0 Total Bilirubin 0.5 Direct Bilirubin 0.2 AST 18 ALT 25 Alkaline Phosphatase 79 Total Protein 7.9 Albumin 4.8 Lipase 22 Stool Occult Blood NEGATIVE COVID-19 (KRISTOPHER) COVID-19 Clin Com 05/15/22 19:45 WBC RBC Hgb Hct MCV MCH MCHC RDW Plt Count MPV Immature Gran % (Auto) Neut % (Auto) Lymph % (Auto) Stearns % (Auto) Eos % (Auto) Baso % (Auto) Lymph # (Auto) Stearns # (Auto) Eos # (Auto) Baso # (Auto) Abs Immat Gran (auto) Absolute Neuts (auto) Absolute Nucleated RBC Nucleated RBC % (auto) Sodium Potassium Chloride Carbon Dioxide Anion Gap BUN Creatinine Estim Creat Clear Calc Estimated GFR Random Glucose Calcium Total Bilirubin Direct Bilirubin AST ALT Alkaline Phosphatase Total Protein Albumin Lipase Stool Occult Blood COVID-19 (KRISTOPHER) Negative COVID-19 Clin Com See Note Discharge Plan Discharge Anticipated Discharge Date/Time: 05/16/22 13:30 Patient Disposition: Home, Self-Care Discharge Diagnosis: Abd pain, possible early appendicitis Referrals: Kathy Cox MD [Primary Care Provider] - 1 Week Gautam Rodrigues MD [Physician] - 1 Week Discharge Medications: New amoxicillin-pot clavulanate 875-125 mg Tablet 875 mg PO Q12H 7 Days Qty: 13 0RF Continued levothyroxine 137 mcg tablet 1 tab PO DAILY amlodipine 5 mg tablet 1 tab PO DAILY@1200 famotidine 20 mg tablet 1 tab PO BEDTIME hydrochlorothiazide 25 mg tablet 1 tab PO DAILY Discharge Orders: Discharge Order (Routine); Ordered 05/16/22 Ordered By: Gautam Rodrigues Diet: Regular diet Activity on Discharge: As tolerated Stand Alone Forms: Patient Portal Discharge page Activity Restrictions/Additional Instructions: You were treated by Dr. Rodrigues, office # [phone]. You were admitted to [facility] for observation due to possible early appendicitis. You have been prescribed a 1 week course of antibiotics that you will take every 12 hours until they are gone. It is unclear whether not you have appendicitis, but if your right lower abdomen by your hip bone starts to hurt, you must return to the emergency department for evaluation, which will include lab work and a repeat CT scan of your abdomen and pelvis. In addition, if your abdomen begins feel bloated, you have nausea, vomiting or bloody diarrhea, you should return to the emergency department. You should focus on staying hydrated and taking approximately 64 oz of liquids by mouth per day. Avoid alcoholic beverages including beer, Wine or hard spirits. Since caffeinated beverages will dehydrate you, you should minimize any tea or coffee until you are feeling better. If you continue to do well with liquids and year cramps near your umbilicus/belly button resolve, you can eat whatever you feel like eating, however, you should avoid overly spicy or seasoned/fried or rich/creamy foods until you see Dr. Rodrigues in the office. Please call Dr. Rodrigues saw office for an appointment for 05/21/22. You should continue taking your regular medications. Because of your age, he should see your regular doctor to discuss a colonoscopy. Most colon cancer start out as small polyps that slowly grow and can turn into a cancer over the span of years. Colorectal cancer is prevent tubal many times by removing colorectal polyps before they turn into a cancer. It is recommended that colonoscopy or other colorectal cancer screening options begin at age 45, sooner if there is a family history of colorectal cancer. Care Plan Goals: Continue antibiotics as prescribed Health Concerns: Possible early appendicitis Plan of Treatment: Antibiotics as prescribed; return for worsening pain Assessment: abd pain, possible early appendicitis, per CT
--- NOTE | 2022-05-16 14:04 | MHC.CM.PN ---
Patient was discharged prior to seeing case management.
== END 2022-05-16 14:40 | disposition home or self-care (01) | DRG 254 ==
LOC: HO.ED 19:17 → HO.EDOVER 19:44 → HO.S3 19:59
PROVIDERS: Emergency Medicine; Admitting Provider Surgery; Emergency Provider Emergency Medicine; PCP Internal Medicine; Visit Provider Surgery
DX: K37 Unspecified appendicitis (principal); E55.9 Vitamin D deficiency, unspecified; E66.01 Morbid (severe) obesity due to excess calories; Z68.39 Body mass index [BMI] 39.0-39.9, adult; E89.0 Postprocedural hypothyroidism; I10 Essential (primary) hypertension; Z20.822 Contact with and (suspected) exposure to COVID-19; Z79.890 Hormone replacement therapy; Z79.899 Other long term (current) drug therapy
CPT/HCPCS: 36415; 74177; 76705; 80048; 80076; 82272; 83690; 85025; 87635; 99218; 99285; J2543; Q9967

== ENCOUNTER → 2022-05-21 15:14 | Outpatient (BNVA) | payer OTHER, SELFPAY | PROVIDERS: PCP Internal Medicine; Referring Provider Internal Medicine; Visit Provider Surgery | DX: K37 Unspecified appendicitis (principal); E66.01 Morbid (severe) obesity due to excess calories; E21.3 Hyperparathyroidism, unspecified; Z68.39 Body mass index [BMI] 39.0-39.9, adult | CPT/HCPCS: 99212 ==

== ENCOUNTER 2022-06-26 08:50 | Outpatient (REF) | payer OTHER, SELFPAY ==
--- NOTE | ~2022-06-26 | CT_ITS ---
EXAMINATION: CT ABDOMEN AND PELVIS WITH CONTRAST CLINICAL INFORMATION: Unspecified appendicitis. Abnormal previous CT abdomen. COMPARISON: CT abdomen pelvis with IV contrast 05/15/2022. TECHNIQUE: Multidetector volumetric images were obtained from the superior aspect of the liver through the pubic symphysis following administration 85 mL of Omnipaque 350 intravenous contrast. Sagittal and coronal reformatted images were obtained on the technologist's workstation. Oral contrast: No This CT examination was performed using dose optimization techniques as appropriate, variously including the following: *Automated exposure control *Adjustment of mA and/or kV according to patient size (this includes techniques or standardized protocols for targeted exams where dose is matched to indication/reason for exam; i.e. extremities or head) *Use of iterative reconstruction technique DLP: 666 mGy-cm FINDINGS: LUNG BASES: The lung bases are clear. Heart size is normal. LIVER, GALLBLADDER, AND BILIARY TREE: The liver is normal in size, shape, and attenuation. There is 0.7 cm cyst central right hepatic lobe. It is essentially stable. No additional lesions seen. There is no intrahepatic ductal dilatation. The gallbladder is unremarkable with no evidence of radiopaque gallstones, gallbladder wall thickening, or obvious pericholecystic inflammatory changes. PANCREAS: Unremarkable. SPLEEN: Unremarkable. ADRENAL GLANDS: Unremarkable. KIDNEYS AND URETERS: The kidneys are normal in size, shape, and attenuation. No hydronephrosis, hydroureter, or calculi seen. No perinephric stranding. BLADDER: Unremarkable. GASTROINTESTINAL TRACT: There is scattered stool and gas seen in the colon without distention. Oral contrast opacified small bowel loops are normal caliber. Appendix is normal caliber. No poly-appendix fat stranding seen. Less than 5 mm lymph nodes seen in the ileocecal mesenteric.. No free air or free fluid seen. ABDOMINAL WALL: No significant hernia is appreciated. LYMPH NODES: Normal. VASCULAR: Unremarkable. PELVIS:: The uterus is anteverted. There is a heterogeneous echogenic fundal mass measuring 5.7 x 4.4 x 4.2 cm. There is no free fluid. No abnormal pelvic or inguinal lymph nodes. No evidence of hernia. OSSEOUS STRUCTURES: No aggressive lytic or sclerotic process seen. CT/CT abdomen pelvis w IV con IMPRESSION: There is a exophytic fundal heterogeneous fibroid to the right of midline close to the appendix. Appendix appears unremarkable. Recommend COOLING PIPE INSPECTOR consultation. Moderate constipation. Stable right hepatic probable small cyst. Fleischner guidelines were followed.
[2022-06-26] MEDS: iohexoL 350 MG/ML 100 ML INFUS..BTL 85 ML IV (11:08)
[2022-06-26] MEDS: Barium Sulfate Oral (Berry) 450 ML ORAL.SUSP 900 ML PO (11:09)
== END 2022-06-26 08:51 | disposition home or self-care (01) ==
LOC: HO.CT 08:50
PROVIDERS: PCP Nurse Practitioner Primary Care; Visit Provider Surgery
DX: K37 Unspecified appendicitis (principal); E66.01 Morbid (severe) obesity due to excess calories
CPT/HCPCS: 74177; Q9967

== ENCOUNTER → 2022-07-03 09:55 | Outpatient (BNVA) | payer OTHER, SELFPAY | PROVIDERS: PCP Internal Medicine; Visit Provider Surgery | DX: R93.5 Abnormal findings on diagnostic imaging of other abdominal regions, including retroperitoneum (principal); R13.10 Dysphagia, unspecified; N85.8 Other specified noninflammatory disorders of uterus; E66.01 Morbid (severe) obesity due to excess calories; Z68.41 Body mass index [BMI] 40.0-44.9, adult; E21.3 Hyperparathyroidism, unspecified; E55.9 Vitamin D deficiency, unspecified | CPT/HCPCS: 99212 ==

== ENCOUNTER → 2022-07-05 12:47 | Outpatient (BNVA) | payer OTHER, SELFPAY | PROVIDERS: PCP Internal Medicine; Visit Provider Physician Assistant | DX: Z12.11 Encounter for screening for malignant neoplasm of colon (principal); R13.10 Dysphagia, unspecified | CPT/HCPCS: 99202 ==

== ENCOUNTER 2022-07-26 12:59 | Outpatient (REF) | payer OTHER, SELFPAY ==
[2022-07-26 14:30] LABS: HCG Quantitative 4 mIU/mL
[2022-07-27 22:28] LABS: Follicle Stimulating Hormone 61.5 mIU/mL; Lutenizing Hormone 30.6 mIU/mL
[2022-07-31 09:43] LABS: HPV mRNA E6/E7 rflx Not Detected (Not Detected)
== END 2022-07-26 13:00 | disposition home or self-care (01) ==
LOC: HO.LNP 12:59
PROVIDERS: PCP Internal Medicine; Visit Provider Obstetrics & Gynecology
DX: Z01.411 Encounter for gynecological examination (general) (routine) with abnormal findings (principal); Z11.51 Encounter for screening for human papillomavirus (HPV); D25.9 Leiomyoma of uterus, unspecified; N91.2 Amenorrhea, unspecified
CPT/HCPCS: 83001; 83002; 84702; 87624; 88142; 99202

== ENCOUNTER 2022-08-22 10:26 | Outpatient (REF) | payer OTHER, SELFPAY ==
--- NOTE | ~2022-08-22 | MM_ITS ---
EXAMINATION: MM SCREENING DIGITAL BREAST TOMOSYNTHESIS, BILATERAL CLINICAL INFORMATION: Screening. Asymptomatic. The lifetime risk of breast cancer based on the Tyrer-Cuzick Model is 6%. COMPARISON: Outside mammography 04/24/2019 ([facility]). TECHNIQUE: Digital breast tomosynthesis is performed in both the craniocaudal and mediolateral oblique views along with computer-aided detection (CAD). Synthesized 2D images are generated from the tomosynthesis. FINDINGS: There are scattered areas of fibroglandular density (ACR BI-RADS breast composition Category b). There are no significant masses, abnormal calcifications, or other abnormalities. No architectural abnormality or developing density or significant change from prior outside exam. Small benign nodular asymmetry central left breast on CC view and an intramammary node posterior upper outer left breast are stable. The axilla and skin contours are unremarkable. MM/MM tomosynthesis screening BI IMPRESSION: No mammographic evidence of malignancy. ASSESSMENT: BI-RADS 2: Benign RECOMMENDATION: Routine annual mammography screening. This patient's information was entered into a reminder system with a target due date for their next mammogram.
--- NOTE | ~2022-08-22 | US_ITS ---
EXAMINATION: US PELVIS CLINICAL INFORMATION: Leiomyoma of uterus. COMPARISON: None. TECHNIQUE: Ultrasound of the pelvis is performed using both transabdominal and transvaginal transducers along with Doppler. Transvaginal imaging is performed due to inadequate visualization transabdominally. FINDINGS: Uterus: The uterus is anteverted, anteflexed and measures 8.8 cm in length, 4.8 cm in AP and 5.3 cm in transverse dimension. The double wall endometrial thickness is 0.7 cm. The uterus is smooth in contour and has normal myometrial echogenicity. There is a small hypodense lesion in the right fundus measuring 4.4 x 4.0 x 3.2 cm. Adnexa: Right ovary is not visualized Left ovary is not visualized. There is no free fluid in the cul-de-sac. US/US pelvic and transvaginal IMPRESSION: Anteverted uterus with a solitary fibroid right fundus. Both ovaries are not seen well.
== END 2022-08-22 10:27 | disposition home or self-care (01) ==
LOC: HO.US 10:26
PROVIDERS: PCP Internal Medicine; Visit Provider Obstetrics & Gynecology
DX: D25.9 Leiomyoma of uterus, unspecified (principal); E21.3 Hyperparathyroidism, unspecified; Z12.31 Encounter for screening mammogram for malignant neoplasm of breast
CPT/HCPCS: 76830; 76856; 77063; 77067

== ENCOUNTER 2022-09-05 10:38 | Outpatient (REF) | payer OTHER, SELFPAY ==
[2022-09-05 11:31] LABS: MANUAL DIFF FLAG NO
[2022-09-05 11:58] LABS: Basophils Percent Auto 0.5 % (0-2); Eosinophils Absolute Auto 0.1 X10*3/uL (0.0-0.4); Eosinophils Percent Auto 1.6 % (0-4); Hematocrit 37.1 % (37.0-47.0); Hemoglobin 12.1 g/dl (12.0-16.0); Imm Gran Abs Auto 0.01 X10*3/uL (0.00-0.03); Imm Gran Pct Auto 0.2 % (0.0-0.4); Lymphocytes Absolute Auto 2.4 X10*3/uL (1.2-4.9); Lymphocytes Percent Auto 43.9 % (20-40); Mean Corpuscular HGB Conc 32.6 g/dl (31.0-35.0); Mean Corpuscular Hemoglobin 27.3 pg (27.0-33.0); Mean Corpuscular Volume 83.6 fL (80.0-98.0); Mean Platelet Volume 10.3 fL (9.4-12.3); Monocytes Absolute Auto 0.3 X10*3/uL (0.1-1.2); Neutrophils Absolute Auto 2.7 x10*3/uL (2.0-8.3); Neutrophils Percent Auto 47.8 % (45-73); Platelet Count 348 X10*3/uL (160-400); Red Blood Count 4.44 X10*6/uL (4.20-5.50); Red Cell Distribution Width 12.6 % (11.0-16.0); White Blood Count 5.5 X10*3/uL (4.8-10.8)
[2022-09-05 12:24] LABS: HCG Quantitative 3 mIU/mL
[2022-09-05 12:42] LABS: Alanine Aminotransferase 19 U/L (0-31); Albumin Level 4.2 g/dL (3.5-5.0); Alkaline Phosphatase 63 U/L (39-117); Anion Gap 14 (12-20); Aspartate Amino Transferase 15 U/L (5-31); Bilirubin Total 0.5 mg/dL (0.0-1.0); Blood Urea Nitrogen 12 mg/dL (9-16); Carbon Dioxide 24 mmol/L (22-29); Chloride 109 mmol/L (96-108); Estimated Glomerular Filt Rate > 60; Glucose Random 90 mg/dL (60-115); Potassium 4.6 mmol/L (3.3-5.1); Sodium 142 mmol/L (135-145); Total Protein 6.7 g/dL (6.5-8.0)
== END 2022-09-05 10:39 | disposition home or self-care (01) ==
LOC: HO.LAB 10:38
PROVIDERS: Surgery; PCP Internal Medicine; Visit Provider Obstetrics & Gynecology
DX: K37 Unspecified appendicitis (principal); N91.2 Amenorrhea, unspecified; D25.9 Leiomyoma of uterus, unspecified
CPT/HCPCS: 36415; 80053; 84702; 85025; 99212

== ENCOUNTER 2022-09-10 14:29 | Outpatient (REF) | payer OTHER, SELFPAY ==
[2022-09-10 16:29] LABS: Alanine Aminotransferase 22 U/L (0-31); Albumin Level 4.5 g/dL (3.5-5.0); Alkaline Phosphatase 73 U/L (39-117); Anion Gap 16 (12-20); Aspartate Amino Transferase 18 U/L (5-31); Bilirubin Total 0.4 mg/dL (0.0-1.0); Blood Urea Nitrogen 16 mg/dL (9-16); Calcium 9.1 mg/dL (8.4-10.2); Carbon Dioxide 25 mmol/L (22-29); Chloride 105 mmol/L (96-108); Estimated Glomerular Filt Rate > 60; Glucose Random 87 mg/dL (60-115); Phosphorus 4.5 mg/dL (2.7-4.5); Potassium 4.5 mmol/L (3.3-5.1); Sodium 141 mmol/L (135-145); Total Protein 7.3 g/dL (6.5-8.0)
[2022-09-10 16:54] LABS: Free T4 (Free Thyroxine) 1.29 ng/dL (0.71-1.85)
[2022-09-10 18:47] LABS: Vitamin D 25-OH Total 36.1 ng/mL (>30)
[2022-09-12 14:24] LABS: Calcium (PTHI) 9.3 mg/dL (8.6-10.2); PTHI 51 pg/mL (16-77)
== END 2022-09-10 14:30 | disposition home or self-care (01) ==
LOC: HO.LAB 14:29
PROVIDERS: PCP Internal Medicine; Visit Provider Internal Medicine
DX: E04.2 Nontoxic multinodular goiter (principal); E55.9 Vitamin D deficiency, unspecified; E89.0 Postprocedural hypothyroidism; E21.3 Hyperparathyroidism, unspecified
CPT/HCPCS: 36415; 80053; 82306; 83970; 84100; 84439; 84443; 99212

== ENCOUNTER → 2022-09-11 09:55 | Outpatient (BNVA) | payer OTHER, SELFPAY | PROVIDERS: PCP Internal Medicine; Visit Provider Surgery | DX: N91.2 Amenorrhea, unspecified (principal); D25.9 Leiomyoma of uterus, unspecified; E89.0 Postprocedural hypothyroidism; E66.01 Morbid (severe) obesity due to excess calories | CPT/HCPCS: 99212 ==

== ENCOUNTER 2022-10-16 08:49 | Outpatient (REF) | payer OTHER, SELFPAY ==
--- NOTE | ~2022-10-16 | FL_ITS ---
EXAMINATION: FL BARIUM SWALLOW CLINICAL INFORMATION: Dysphagia COMPARISON: None available. TECHNIQUE: Barium swallow examination is performed using fluoroscopic evaluation in addition to multiple fluoroscopic spot views. The patient is imaged both upright and prone and using both thick and thin sulfate along with effervescent granules. Barium tablet was also administered. Fluoroscopy time: 0.6 minutes DAP: 6.8 Gycm2 Images: 37 FINDINGS: The swallowing mechanism is normal. No aspiration or penetration. Esophageal motility is normal. No hernia. No mass or stricture is seen. There is gastroesophageal reflux. Barium tablet passed freely into the stomach. FL/FL barium swallow IMPRESSION: Gastroesophageal reflux.
== END 2022-10-16 08:50 | disposition home or self-care (01) ==
LOC: HO.XRAY 08:49
PROVIDERS: Visit Provider Physician Assistant
DX: R13.10 Dysphagia, unspecified (principal)
CPT/HCPCS: 74220

== ENCOUNTER 2022-10-30 09:37 | Outpatient (REF) | payer OTHER, SELFPAY ==
[2022-10-30 12:32] LABS: Alanine Aminotransferase 21 U/L (0-31); Albumin Level 4.3 g/dL (3.5-5.0); Alkaline Phosphatase 61 U/L (39-117); Anion Gap 11 (12-20); Aspartate Amino Transferase 18 U/L (5-31); Bilirubin Total 0.5 mg/dL (0.0-1.0); Blood Urea Nitrogen 13 mg/dL (9-16); Calcium 8.8 mg/dL (8.4-10.2); Carbon Dioxide 28 mmol/L (22-29); Chloride 108 mmol/L (96-108); Estimated Glomerular Filt Rate > 60; Glucose Random 107 mg/dL (60-115); Phosphorus 4.3 mg/dL (2.7-4.5); Potassium 4.7 mmol/L (3.3-5.1); Sodium 142 mmol/L (135-145); Total Protein 6.9 g/dL (6.5-8.0)
[2022-10-30 12:54] LABS: Free T4 (Free Thyroxine) 1.42 ng/dL (0.71-1.85); Thyroid Stimulating Hormone 0.22 uIU/mL (0.32-4.0); Vitamin D 25-OH Total 35.7 ng/mL (>30)
[2022-11-01 17:03] LABS: Calcium (PTHI) 8.7 mg/dL (8.6-10.2); PTHI 36 pg/mL (16-77)
== END 2022-10-30 09:38 | disposition home or self-care (01) ==
LOC: HO.LAB 09:37
PROVIDERS: PCP Internal Medicine; Visit Provider Internal Medicine
DX: E55.9 Vitamin D deficiency, unspecified (principal); E89.0 Postprocedural hypothyroidism; E21.3 Hyperparathyroidism, unspecified
CPT/HCPCS: 36415; 80053; 82306; 83970; 84100; 84439; 84443

== ENCOUNTER 2022-12-11 09:34 | Outpatient (REF) | payer OTHER, SELFPAY ==
[2022-12-11 11:01] LABS: Albumin Level 4.1 g/dL (3.5-5.0)
[2022-12-11 11:18] LABS: Free T4 (Free Thyroxine) 1.19 ng/dL (0.71-1.85); Thyroid Stimulating Hormone 1.47 uIU/mL (0.32-4.0)
== END 2022-12-11 09:35 | disposition home or self-care (01) ==
LOC: HO.LAB 09:34
PROVIDERS: PCP Internal Medicine; Visit Provider Internal Medicine
DX: E55.9 Vitamin D deficiency, unspecified (principal); E89.0 Postprocedural hypothyroidism
CPT/HCPCS: 36415; 82040; 84439; 84443

== ENCOUNTER 2022-12-27 15:46 | Outpatient (REF) | payer OTHER, SELFPAY ==
--- NOTE | ~2022-12-27 | XR_ITS ---
EXAMINATION: XR SINUSES CLINICAL INFORMATION: Frontal headache. COMPARISON: None available. TECHNIQUE: 4 views of the sinuses were obtained. FINDINGS: Both frontal sinuses are partially pneumatized. Otherwise, bilateral frontal, ethmoidal, maxillary and sphenoidal sinuses as well as bilateral mastoid air cells are well aerated and radiographically appear unremarkable. The nasal cavity as well as the nasal septum appear unremarkable. XR/XR sinus min 3V IMPRESSION: Partially pneumatized frontal sinuses bilaterally, otherwise unremarkable radiographic appearance of the paranasal sinuses and bilateral mastoid air cells.
== END 2022-12-27 15:47 | disposition home or self-care (01) ==
LOC: HO.XRAY 15:46
PROVIDERS: PCP Internal Medicine; Visit Provider Internal Medicine
DX: R51.9 Headache, unspecified (principal)
CPT/HCPCS: 70220

== ENCOUNTER 2023-01-15 09:17 | Outpatient (AMB) | payer OTHER, SELFPAY ==
[2023-01-15 09:19] VITALS: BP 126/88; PULSE 82; O2SAT 98; BMI 39.9
--- NOTE | 2023-01-15 09:19 | MHC.OFFVIS ---
Intake Vital Signs 01/15/23 09:19 Height 5 ft 1 in Weight 210 lb 15.718 oz BMI 39.9 BP 126/88 Blood Pressure Location Lt brachial Position Sitting Pulse 82 Pulse Source Pulse Oximeter Pulse Oximetry (%) 98 Oxygen Delivery Method Room Air Intake Visit Reasons: F/U Hypothyroidism Intake Note: Pt presents to the office today for a follow up for hypothyroidism. Allergies aspirin Allergy (Unknown, Uncoded 01/15/23 09:22) stomach upset Medication List - Last Reconciled 01/15/23 by Remi Monteiro MD amlodipine 1 tab PO DAILY@1200 atenolol 25 mg PO QAM bisacodyl (Dulcolax (bisacodyl)) 10 mg (2 x 5 mg) PO ONCE 1 day cholecalciferol (vitamin D3) 25 mcg PO DAILY famotidine 1 tab PO BEDTIME hydrochlorothiazide 1 tab PO DAILY levothyroxine 112 mcg PO DAILY 30 days polyethylene glycol 3350 (Miralax) 238 grams PO ONCE 1 day HPI HPI Comments History of Present Illness Details 47 YO F with no significant PMHx who is seen in F/U for subclinical hyperthyroidism. She had labs checked by her PCP 04/07/19 which revealed a TSH of 0.12. These were repeated 04/08/19 with TSH of 0.22 and FT4 of 1.22. She was subsequently referred to Endocrinology. After her initial visit with me we checked full TFTs which were completely WNL. All thyroid antibodies were also assessed, which were all WNL. We repeated these a second time, and these remained completely WNL. She had a thyroid US which revealed a multinodular thyroid with multiple large nodules meeting indication for FNA biopsy. She opted to not have FNA biopsy and instead has requested a total thyroidectomy for the multinodular thyroid and the subclinical hyperthyroidism. She met with the Endocrine surgeon and was hesitant to proceed with a total thyroidectomy due to inability to find care for her disabled son. Decision was made to hold off on a total thyroidectomy until she feels she is ready, and to proceed with FNA biopsy of her most concerning appearing nodules. She underwent FNA biopsy 04/21/2020 of her R mid pole superior 2.0 cm nodule, R mid pole inferior 4.4 cm nodule and L upper pole 2.3 cm nodule. All with [place] Category II Benign cytology. She did have a CT of the neck which revealed an enlarged multinodular thyroid gland, but there was no evidence of compression of surrounding structures. She was referred to Dr. Quintanilla and underwent a total thyroidectomy 03/19/2022, surgical pathology was benign. She was started on levothyroxine 137 mcg PO daily postoperatively . She is currently on 112 mcg levothyroxine Most recent labs reveal TSH to be WNL, but PTH is mildly elevated. She takes Vitamin D 2000 IU daily. She has minimal calcium in her diet. She does report difficulty swallowing. She denies taking any biotin or other supplements. Currently denies any symptoms of hyper or hypothyroidism. She does have a family history of thyroid disease in her Sister and her Mother. US Thyroid: 07/04/2021 Right Thyroid Lobe: 7.5 x 3.8 x 2.7 cm, volume 41 mL. Previously 7.1 x 3.6 x 3.6 cm, volume 48 mL. Parenchyma: The gland echotexture is heterogeneous. Thyroid vascularity is increased. Left Thyroid Lobe: 7.7 x 3.1 x 2.6 cm, volume 32 mL. Previously 7.9 x 2.7 x 2.8 cm, volume 31 mL. Parenchyma: The gland echotexture is heterogeneous. Thyroid vascularity is increased. Isthmus: 1.3 cm in maximum AP dimension. Previously 1.2 cm. Estimated total number of nodules greater than or equal to 1 cm: 6? to 10. Internist Medical Doctor Md nodules are described as follows: 1.? Location: Right mid pole. ?? ? Size: 4.6 x 1.8 x 4.3 cm, volume 18.6 mL. ?? ? Previously: 4.1 x 2.5 x 3.6 cm, volume 19.3 mL. ?? ? Nodule characteristics: ?? ? Composition: Solid/almost completely solid (2). ?? ? Echogenicity: Cannot be determined (1). ?? ? Shape: Not taller than wide (0). ?? ? Margins: Smooth (0). ?? ? Echogenic Foci: Punctate echogenic foci (3). ?? ? ACR TI-RADS total points: 6 ?? ? ACR TI-RADS category: 4 ? Significant change in size (>/= 20% in 2 dimensions and minimal increase of 2 mm or 50% or greater increase in volume): ?? ? Change in features: ?? ? Change in ACR TI-RADS risk category: 2.? Location: Left upper pole. ?? ? Size: 2.3 x 1.4 x 2.2 cm, volume 3.6 mL. ?? ? Previously: 2.5 x 2.1 x 2.2 cm, volume 6.0 mL. ?? ? Nodule characteristics: ?? ? Composition: Solid/almost completely solid (2). ?? ? Echogenicity: Hypoechoic (2). ?? ? Shape: Not taller than wide (0). ?? ? Margins: Smooth (0). ?? ? Echogenic Foci: Punctate echogenic foci (3). ?? ? ACR TI-RADS total points: 7 ?? ? ACR TI-RADS category: 5 ? Significant change in size (>/= 20% in 2 dimensions and minimal increase of 2 mm or 50% or greater increase in volume): ?? ? Change in features: ?? ? Change in ACR TI-RADS risk category: 3.? Location: Left mid pole. ?? ? Size: 2.6 x 1.6 x 2.0 cm, volume 4.5 mL. ?? ? Previously: 3.1 x 2.0 x 2.6 cm, volume 8.4 mL. ?? ? Nodule characteristics: ?? ? Composition: Solid/almost completely solid (2). ?? ? Echogenicity: Isoechoic (1). ?? ? Shape: Not taller than wide (0). ?? ? Margins: Smooth (0). ?? ? Echogenic Foci: Punctate echogenic foci (3). ?? ? ACR TI-RADS total points: 6 ?? ? ACR TI-RADS category: 4 ? Significant change in size (>/= 20% in 2 dimensions and minimal increase of 2 mm or 50% or greater increase in volume): ?? ? Change in features: ?? ? Change in ACR TI-RADS risk category: 4.? Location: Left lower pole. ?? ? Size: 1.8 x 1.3 x 2.0 cm, volume 2.3 mL. ?? ? Previously: 1.8 x 1.8 x 1.5 cm, volume 2.5 mL. ?? ? Nodule characteristics: ?? ? Composition: Mixed cystic and solid (1). ?? ? Echogenicity: Hypoechoic (2). ?? ? Shape: Not taller than wide (0). ?? ? Margins: Smooth (0). ?? ? Echogenic Foci: None (0). ?? ? ACR TI-RADS total points: 3 ?? ? ACR TI-RADS category: 3 ? Significant change in size (>/= 20% in 2 dimensions and minimal increase of 2 mm or 50% or greater increase in volume): ?? ? Change in features: ?? ? Change in ACR TI-RADS risk category: 5.? Location: Left lower pole. ?? ? Size: 1.3 x 1.2 x 1.4 cm, volume 1.1 mL. ?? ? Previously: Not documented. ?? ? Nodule characteristics: ?? ? Composition: Mixed cystic and solid (1). ?? ? Echogenicity: Hyperechoic (1). ?? ? Shape: Not taller than wide (0). ?? ? Margins: Smooth (0). ?? ? Echogenic Foci: None (0). ?? ? ACR TI-RADS total points: 2 ?? ? ACR TI-RADS category: 2 ?? ? NODES: No lymphadenopathy is seen in the tissue surrounding the thyroid gland. CT Neck 01/21/2020: FINDINGS: The thyroid gland is enlarged. The right lobe measures 7 x 3 x 4.5 cm in longitudinal, transverse and AP dimension. The left lobe measures 0.8 x 2.3 x 2.7 cm in dimension. Thyroid isthmus measures 1.8 cm in AP dimension. The thyroid gland is heterogeneous appearing with multiple hypoechoic hyperechoic areas and lobular contour. There are multiple nodules. Largest discrete nodule measures approximately 1.6 x 1.8 cm in the mid to inferior right lobe and 1 x 1.2 cm in the superior left lobe. The trachea is midline. No tracheal compression is seen. No extension into the superior mediastinum is seen. There is shotty cervical lymphadenopathy. No enlarged lymph nodes are seen in the. The parotid glands are homogeneous in attenuation. The submandibular glands are normal. No contour abnormality or pathologic enhancement is seen within the oral cavity or pharyngeal mucosal space. The laryngeal structures are normal. The parapharyngeal fat is preserved. The carotid sheath vasculature opacify normally. No extra mucosal soft tissue mass or fluid collection is seen. No retropharyngeal fluid collection is seen. The superior mediastinum is unremarkable. The lung apices are clear. The mastoid air cells and visualized portions of the paranasal sinuses are well-aerated. The temporomandibular joints are normal. No periapical disease is identified. The imaged portions of the brain parenchyma are unremarkable. There may be congenital fusion of C2 and C3. There is degenerative spondylosis and disc space narrowing at C6-C7. Labs: Laboratory Tests 01/30/22 01/30/22 09:45 09:45 25-OH Vitamin D To madhuri 29.7 TSH 0.44 Free T4 1.13 PTH Intact 97 H Calcium (PTH Intac t) 9.5 PFSH Medical History Dysphagia HTN (hypertension) Hyperparathyroidism Multinodular thyroid Postoperative hypothyroidism Subclinical hyperthyroidism Thyroid disease Vitamin D deficiency Surgical History No pertinent past surgical history Family History Father Heart disease Mother Thyroid disease Social History Household Members: Children Housing: House Do you presently have visiting nurse or other home services: No Alcohol intake: never Patient Tobacco Use Status: Never used Tobacco Female Reproductive History Menstrual Age of Menarche: 11 Physical Exam Vital Signs: Last Vital Signs Pulse 82 01/15/23 09:19 BP 126/88 01/15/23 09:19 Pulse Ox 98 01/15/23 09:19 Oxygen Delivery Method Room Air 01/15/23 09:19 BMI result Body Mass Index 39.9 Const Other: Healed scar status post thyroidectomy. Reflexes 2+ DP Assessment & Plan Assessment & Plan (1) Postoperative hypothyroidism: Code(s): E89.0 - Postprocedural hypothyroidism Plan: This is a 47-year-old female with a history of post-surgical hypothyroidism currently being replaced on 112 mcg levothyroxine. She appears to be clinically and biochemically euthyroid. At this point, patient returned to the care of her primary care provider. She can be returned back to endocrinology as needed Medications: Refilled levothyroxine 112 mcg PO DAILY 30 tabs 3RF 30 days Coding Level of Care Code Est Pt Level 3 (77444) Diagnoses Postoperative hypothyroidism E89.0
== END 2023-01-15 09:31 | disposition home or self-care (01) ==
PROVIDERS: PCP Internal Medicine; Visit Provider Internal Medicine Endocrinology, Diabetes & Metabolism
DX: E89.0 Postprocedural hypothyroidism (principal)
CPT/HCPCS: 99213

== ENCOUNTER → 2023-01-15 09:17 | Outpatient (BNVA) | payer OTHER, SELFPAY | PROVIDERS: Visit Provider Internal Medicine Endocrinology, Diabetes & Metabolism | DX: E89.0 Postprocedural hypothyroidism (principal); Z79.899 Other long term (current) drug therapy | CPT/HCPCS: 99212 ==

== ENCOUNTER 2023-04-16 13:51 | Outpatient (REF) | payer OTHER, SELFPAY ==
--- NOTE | ~2023-04-16 | US_ITS ---
EXAMINATION: US PELVIS CLINICAL INFORMATION: Leiomyoma of uterus. COMPARISON: Pelvic ultrasound 08/22/2022. TECHNIQUE: Ultrasound of the pelvis is performed using both transabdominal and transvaginal transducers along with color Doppler. Transvaginal imaging is performed due to inadequate visualization transabdominally. FINDINGS: Uterus: The uterus is anteverted and measures 8.1 x 4.2 x 5.3 cm. Uterine size is stable compared to prior. The double wall endometrial thickness is 7 mm. There are multiple fibroids in the right fundus measuring 5.8 x 4.2 x 4.3 cm and 4.4 x 4.9 x 3.8 cm. Adnexa: The ovaries are not visible. No free fluid. US/US pelvic and transvaginal IMPRESSION: Fibroid uterus.
== END 2023-04-16 13:52 | disposition home or self-care (01) ==
LOC: HO.US 13:51
PROVIDERS: PCP Internal Medicine; Visit Provider Obstetrics & Gynecology
DX: D25.9 Leiomyoma of uterus, unspecified (principal)
CPT/HCPCS: 76830; 76856

== ENCOUNTER 2023-06-06 14:42 | Outpatient (AMB) | payer OTHER, SELFPAY ==
--- NOTE | 2023-06-06 15:11 | MHC.OFFVIS ---
Intake Vital Signs 06/06/23 15:18 Height 5 ft 1 in Weight 205 lb BMI 38.7 Intake Visit Reasons: Ultrasound follow up/DO NOT RS Allergies aspirin Allergy (Unknown, Uncoded 06/06/23 15:11) stomach upset Is last menstrual period known: No Post menopausal: Yes Do you need a note to return to daycare/school/sports/work: No HPI HPI Comments History of Present Illness Details Presenting for follow-up ultrasound regarding uterine leiomyomas identified on previous ultrasound in 09/13 which showed the following The uterus is smooth in contour and has normal myometrial echogenicity. There is a small hypodense lesion in the right fundus measuring 4.4 x 4.0 x 3.2 cm. Follow-up ultrasound done in 04/16/2023 showed the following: Uterus: The uterus is anteverted and measures 8.1 x 4.2 x 5.3 cm. Uterine size is stable compared to prior. The double wall endometrial thickness is 7 mm. There are multiple fibroids in the right fundus measuring 5.8 x 4.2 x 4.3 cm and 4.4 x 4.9 x 3.8 cm. Adnexa: The ovaries are not visible. No free fluid. PFSH Medical History Postoperative hypothyroidism Thyroid disease Hyperparathyroidism Vitamin D deficiency Dysphagia HTN (hypertension) Subclinical hyperthyroidism Multinodular thyroid Surgical History No pertinent past surgical history Family History Father Heart disease Mother Thyroid disease Social History Household Members: Children Housing: House Do you presently have visiting nurse or other home services: No Alcohol intake: never Patient Tobacco Use Status: Never used Tobacco Female Reproductive History Menstrual Age of Menarche: 11 control method: none Review of Systems Const All systems reviewed & are unremarkable except as noted in HPI and below Reports as per HPI and Reports no additional complaints GI Reports no additional complaints Reports no additional complaints Assessment & Plan Assessment & Plan (1) Uterine myoma: Code(s): D25.9 - Leiomyoma of uterus, unspecified Plan: Discussed with the patient the findings on pelvic ultrasound (1 myoma versus 2 fibroids on ultrasound 6 months apart) & the risk of myosarcoma; discussed with the patient the options of treatment including expectant management versus hysterectomy; the pros and cons, risks benefits of each approach were discussed with the patient including the fact that in cases of myosarcoma, surgical treatment can lead to early diagnosis and positively affects the prognosis; after further discussion, the patient decided to proceed with expectant management. Will repeat pelvic ultrasound periodically. Instructions given to patient to call in case any of the following occurs: pressure symptoms, abnormal uterine bleeding, pelvic pain; and to schedule a 6-8 week office follow-up appointment with repeat pelvic ultrasound . All questions answered, the patient verbalized understanding and agreed with the plan . Orders: Orders US pelvic and transvaginal 6 Weeks D25.9 - Leiomyoma of uterus, unspecified Coding Level of Care Code Est Pt Level 3 (01967) Diagnoses Uterine myoma D25.9
[2023-06-06 15:18] VITALS: BMI 38.7
== END 2023-06-06 15:49 | disposition home or self-care (01) ==
PROVIDERS: Visit Provider Obstetrics & Gynecology
DX: D25.9 Leiomyoma of uterus, unspecified (principal)
CPT/HCPCS: 99213

== ENCOUNTER → 2023-06-06 14:42 | Outpatient (BNVA) | payer OTHER, SELFPAY | PROVIDERS: Visit Provider Obstetrics & Gynecology | DX: D25.9 Leiomyoma of uterus, unspecified (principal) | CPT/HCPCS: 99212 ==

== ENCOUNTER 2023-08-15 12:53 | Outpatient (REF) | payer MEDICAID, SELFPAY ==
--- NOTE | ~2023-08-15 | US_ITS ---
EXAMINATION: US PELVIS INFORMATION: Leiomyoma, postmenopausal COMPARISON: 04/16/2023. TECHNIQUE: Ultrasound of the pelvis is performed using both transabdominal and transvaginal transducers along with Doppler. Transvaginal imaging is performed due to inadequate visualization transabdominally. FINDINGS: The uterus measures 11.3 x 4.0 x 5.7 cm, volume 174.9 mL. A 4.0 x 3.8 x 3.7 cm fibroid previously measured 4.4 x 4.9 x 3.8 cm. A 7.1 x 5.5 x 5.6 cm fibroid previously measured 5.8 x 4.2 x 4.3 cm. No significant free fluid. Bilateral ovaries were not visualized. Endometrial thickness is 3 mm, although endometrium is difficult to visualize due to fibroids and uterine heterogeneity. US/US pelvic and transvaginal IMPRESSION: 1. Enlarged, heterogeneous uterus with multiple fibroids, largest 7.1 cm. 2. Endometrial thickness is 3 mm, although evaluation is limited as the endometrium is difficult to visualize due to fibroids and uterine heterogeneity. 3. Bilateral ovaries were not visualized.
== END 2023-08-15 12:54 | disposition home or self-care (01) ==
LOC: HO.US 12:53
PROVIDERS: PCP Internal Medicine; Visit Provider Obstetrics & Gynecology
DX: D25.9 Leiomyoma of uterus, unspecified (principal)
CPT/HCPCS: 76830; 76856

== ENCOUNTER 2023-09-12 12:44 | Outpatient (AMB) | payer MEDICAID, SELFPAY ==
--- NOTE | 2023-09-12 13:02 | A.OFFVIS_ITS ---
Intake Vital Signs 09/12/23 13:03 Height 5 ft 1 in Weight 205 lb BMI 38.7 BP 118/66 Blood Pressure Location Lt brachial Position Sitting Intake Visit Reasons: US follow up Information Interpreted: non-clinical & clinical It Service Technician: It Service Technician Present Accompanied by: Self / Same As Patient Allergies aspirin Allergy (Unknown, Uncoded 09/12/23 13:04) stomach upset Patient : No HPI HPI Comments History of Present Illness Details Presenting for follow-up pelvic ultrasound done in 08/16 compared to previous 1 done in 04/15. The pelvic ultrasound showed the following The uterus measures 11.3 x 4.0 x 5.7 cm, volume 174.9 mL. A 4.0 x 3.8 x 3.7 cm fibroid previously measured 4.4 x 4.9 x 3.8 cm. A 7.1 x 5.5 x 5.6 cm fibroid previously me asured 5.8 x 4.2 x 4.3 cm. No significant free fluid. Bilateral ovaries were not visualized. Endometrial thickness is 3 mm, although endometrium is difficult to visualize due to fibroids and uterine heterogeneity. The patient has no complaints no bulk symptoms a pelvic pain or pressure or abnormal uterine bleeding [facility] Medical History Postoperative hypothyroidism Thyroid disease Hyperparathyroidism Vitamin D deficiency Dysphagia HTN (hypertension) Subclinical hyperthyroidism Multinodular thyroid Surgical History No pertinent past surgical history Family History Father Heart disease Mother Thyroid disease Social History Household Members: Children Housing: House Do you presently have visiting nurse or other home services: No Alcohol intake: never Patient Tobacco Use Status: Never used Tobacco Patient : No Female Reproductive History Menstrual Age of Menarche: 11 Review of Systems Const All systems reviewed & are unremarkable except as noted in HPI and below Reports as per HPI and Reports no additional complaints GI Reports no additional complaints Reports no additional complaints Physical Exam Vital Signs: Last Vital Signs BP 118/66 09/12/23 13:03 BMI result Body Mass Index 38.7 Assessment & Plan Assessment & Plan (1) Uterine myoma: Code(s): D25.9 - Leiomyoma of uterus, unspecified Plan: Discussed with the patient the findings on pelvic ultrasound & the risk of myosa rcoma; discussed with the patient the options of treatment including expectant management versus hysterectomy; the pros and cons, risks benefits of each approach were discussed with the patient including the fact that in cases of myosarcoma, surgical treatment can lead to early diagnosis and positively affects the prognosis; after further discussion, the patient decided to proceed with expectant management. Will repeat pelvic ultrasound in 6. Instructions given to patient to call in case any of the following occurs: pressure symptoms, abnormal uterine bleeding, pelvic pain; and to schedule six-month ultrasound follow-up appointment . All questions answered, the patient verbalized understanding and agreed with the plan . Orders: Orders US pelvic and transvaginal Today D25.9 - Leiomyoma of uterus, unspecified Coding Level of Care Code Est Pt Level 3 (37093) Diagnoses Uterine myoma D25.9
[2023-09-12 13:03] VITALS: BP 118/66; BMI 38.7
== END 2023-09-12 13:59 | disposition home or self-care (01) ==
PROVIDERS: PCP Internal Medicine; Visit Provider Obstetrics & Gynecology
DX: D25.9 Leiomyoma of uterus, unspecified (principal)
CPT/HCPCS: 99213

== ENCOUNTER → 2023-09-12 12:44 | Outpatient (BNVA) | payer MEDICAID, SELFPAY | PROVIDERS: PCP Internal Medicine; Visit Provider Obstetrics & Gynecology | DX: D25.9 Leiomyoma of uterus, unspecified (principal) | CPT/HCPCS: 99212 ==

== ENCOUNTER 2024-02-13 12:41 | Outpatient (REF) | payer MEDICAID, SELFPAY ==
--- NOTE | ~2024-02-13 | US_ITS ---
EXAMINATION: US PELVIS CLINICAL INFORMATION: Leiomyoma of uterus. COMPARISON: Pelvic ultrasound 08/15/2023. TECHNIQUE: Ultrasound of the pelvis is performed using both transabdominal and transvaginal transducers along with Doppler. Transvaginal imaging is performed due to inadequate visualization transabdominally. FINDINGS: UTERUS: The uterus is anteverted and measures 11.8 x 5.7 x 5.0 cm. The double wall endometrial thickness could not be measured as the endometrium was poorly seen. 2 fundal fibroids are seen which appear decreased in size compared to prior measuring 3.6 x 3.4 x 3.7 cm (previously 4.0 x 3.8 x 3.7 cm) and 3.2 x 4.3 x 2.9 cm (previously 7.1 x 7.5 x 5.6 cm). Neither ovary could be seen. No free fluid present. US/US pelvic and transvaginal IMPRESSION: Fundal fibroids appear decreased in size. Neither ovary could be seen. Electronically signed by: Ulices Mora MD 02/25/2024 04:29 PM EDT
== END 2024-02-13 12:42 | disposition home or self-care (01) ==
LOC: HO.US 12:41
PROVIDERS: PCP Internal Medicine; Visit Provider Obstetrics & Gynecology
DX: D25.9 Leiomyoma of uterus, unspecified (principal)
CPT/HCPCS: 76830; 76856

== ENCOUNTER 2024-02-27 13:18 | Outpatient (AMB) | payer MEDICAID, SELFPAY ==
[2024-02-27 13:27] VITALS: BMI 38.3
--- NOTE | 2024-02-27 13:27 | A.OFFVIS_ITS ---
Vital Signs 02/27/24 13:27 Height 5 ft 1 in Weight 202 lb 13.204 oz BMI 38.3 Intake Visit Reasons: US follow up Allergies aspirin Allergy (Unknown, Uncoded 09/12/23 13:04) stomach upset HPI Comments Details: Presenting for follow-up ultrasound done recently regarding myomas. The patient is doing well with no complaints no abnormal uterine bleeding, pelvic pressure or pain. Pelvic ultrasound done in 02/14 showed the following: UTERUS: The uterus is anteverted and measures 11.8 x 5.7 x 5.0 cm. The double wall endometrial thickness could not be measured as the endometrium was poorly seen. 2 fundal fibroids are seen which appear decreased in size compared to prior measuring 3.6 x 3.4 x 3.7 cm (previously 4.0 x 3.8 x 3.7 cm) and 3.2 x 4.3 x 2.9 cm (previously 7.1 x 7.5 x 5.6 cm). Neither ovary could be seen. No free fluid present. [facility] Medical History Postoperative hypothyroidism Thyroid disease Hyperparathyroidism Vitamin D deficiency Dysphagia HTN (hypertension) Subclinical hyperthyroidism Multinodular thyroid Surgical History No pertinent past surgical history Family History Father Heart disease Mother Thyroid disease Social History Household Members: Children Housing: House Do you presently have visiting nurse or other home services: No Alcohol intake: never Patient Tobacco Use Status: Never used Tobacco Female Reproductive History Menstrual Age of Menarche: 11 Review of Systems Const All systems reviewed & are unremarkable except as noted in HPI and below Reports as per HPI and Reports no additional complaints GI Reports no additional complaints Reports no additional complaints Physical Exam Vital Signs: BMI result Body Mass Index 38.3 Assessment & Plan Assessment & Plan (1) Uterine myoma: Code(s): D25.9 - Leiomyoma of uterus, unspecified Category: Medical Plan: Discussed with the patient the findings on pelvic ultrasound & the risk of myosarcoma; discussed with the patient the options of treatment including expectant management versus hysterectomy; the pros and cons, risks benefits of each approach were discussed with the patient including the fact that in cases of myosarcoma, surgical treatment can lead to early diagnosis and positively affects the prognosis; after further discussion, the patient decided to proceed with expectant management. Will repeat pelvic ultrasound periodically. Instructions given to patient to call in case any of the following occurs: pressure symptoms, abnormal uterine bleeding, pelvic pain; and to schedule a 12 months pelvic ultrasound and a follow-up appointment . All questions answered, the patient verbalized understanding and agreed with the plan . Orders: Orders US pelvic and transvaginal 1 Year D25.9 - Leiomyoma of uterus, unspecified Coding Level of Care Code Est Pt Level 3 (35255) Diagnoses Uterine myoma D25.9
== END 2024-02-27 13:51 | disposition home or self-care (01) ==
PROVIDERS: PCP Internal Medicine; Referring Provider Internal Medicine; Visit Provider Obstetrics & Gynecology
DX: D25.9 Leiomyoma of uterus, unspecified (principal)
CPT/HCPCS: 99213

== ENCOUNTER → 2024-02-27 13:18 | Outpatient (BNVA) | payer MEDICAID, SELFPAY | PROVIDERS: PCP Internal Medicine; Visit Provider Obstetrics & Gynecology | DX: D25.9 Leiomyoma of uterus, unspecified (principal) | CPT/HCPCS: 99212 ==

== ENCOUNTER 2024-04-28 11:55 | Outpatient (REF) | payer MEDICAID, SELFPAY ==
[2024-04-28 14:28] LABS: MANUAL DIFF FLAG NO
[2024-04-28 14:38] LABS: Basophils Absolute Auto 0.1 X10*3/uL (0.0-0.2); Basophils Percent Auto 0.6 % (0-2); Eosinophils Absolute Auto 0.1 X10*3/uL (0.0-0.4); Eosinophils Percent Auto 1.6 % (0-4); Hematocrit 38.7 % (37.0-47.0); Hemoglobin 12.3 g/dl (12.0-16.0); Imm Gran Abs Auto 0.03 X10*3/uL (0.00-0.03); Imm Gran Pct Auto 0.4 % (0.0-0.4); Lymphocytes Absolute Auto 2.6 X10*3/uL (1.2-4.9); Lymphocytes Percent Auto 32.1 % (20-40); Mean Corpuscular HGB Conc 31.8 g/dl (31.0-35.0); Mean Corpuscular Hemoglobin 27.7 pg (27.0-33.0); Mean Corpuscular Volume 87.2 fL (80.0-98.0); Mean Platelet Volume 10.7 fL (9.4-12.3); Monocytes Absolute Auto 0.5 X10*3/uL (0.1-1.2); Monocytes Percent Auto 5.5 % (2-11); Neutrophils Absolute Auto 4.9 x10*3/uL (2.0-8.3); Neutrophils Percent Auto 59.8 % (45-73); Platelet Count 375 X10*3/uL (160-400); Red Blood Count 4.44 X10*6/uL (4.20-5.50); Red Cell Distribution Width 12.8 % (11.0-16.0); White Blood Count 8.1 X10*3/uL (4.8-10.8)
[2024-04-28 15:10] LABS: Alanine Aminotransferase 34 U/L (0-31); Albumin Level 4.4 g/dL (3.5-5.0); Alkaline Phosphatase 65 U/L (39-117); Anion Gap 14 (12-20); Aspartate Amino Transferase 24 U/L (5-31); Bilirubin Total 0.3 mg/dL (0.0-1.0); Blood Urea Nitrogen 13 mg/dL (9-16); Calcium 9.7 mg/dL (8.4-10.2); Carbon Dioxide 26 mmol/L (22-29); Chloride 104 mmol/L (96-108); Cholesterol 274 mg/dL (<200); Estimated Glomerular Filt Rate > 60; Glucose Random 85 mg/dL (60-115); HDL Cholesterol 46 mg/dL (>40); LDL Cholesterol Calculated 177 mg/dL (<100); Potassium 3.9 mmol/L (3.3-5.1); Sodium 140 mmol/L (135-145); TSH reflex Free T4 1.89 uIU/mL (0.32-4.0); Total Protein 7.6 g/dL (6.5-8.0); Triglycerides 258 mg/dL (<150); Vitamin D 25-OH Total 56.6 ng/mL (>30)
[2024-04-29 08:38] LABS: HIV AB/AG Nonreactive (Nonreactive); HIV Num 1 0.05 S/CO (0.00-0.99)
== END 2024-04-28 11:56 | disposition home or self-care (01) ==
LOC: HO.CHCLDS 11:55
PROVIDERS: Visit Provider Internal Medicine
DX: I10 Essential (primary) hypertension (principal); E03.9 Hypothyroidism, unspecified
CPT/HCPCS: 36415; 80053; 80061; 82306; 84443; 85025; 87389

== ENCOUNTER 2024-05-25 15:00 | Outpatient (AMB) | payer OTHER, SELFPAY ==
[2024-05-25 15:32] VITALS: BP 116/74; PULSE 89; O2SAT 98; BMI 40.4
--- NOTE | 2024-05-25 15:32 | AM.OFFWIN_ITS ---
Intake Vital Signs 05/25/24 15:32 Height 5 ft 1 in Weight 214 lb BMI 40.4 BP 116/74 Blood Pressure Location Rt brachial Position Sitting Pulse 89 Pulse Source Pulse Oximeter Pulse Oximetry (%) 98 Oxygen Delivery Method Room Air Intake Visit Reasons: EP ? Blisters spreading, RT side of the forehead Intake Note: Patient here for blisters on right side of forehead and spreading down that started night. Patient Tobacco Use Status: Never used Tobacco Allergies aspirin Allergy (Unknown, Uncoded 05/25/24 15:34) stomach upset Do you need a note to return to daycare/school/sports/work: No HPI HPI Comments History of Present Illness Details History of Present Illness The patient is a 49-year-old female presenting with a herpes zoster outbreak that began on the previous 4 days ago. She initially noticed a small blister, mistaking it for an insect bite. The condition progressed over four days, with the affected area becoming red and blistered, exhibiting an increase in size and discomfort. Symptoms include burning, itching, and pain, with a notable spread into the hairline. The patient denies having regular eye doctor visits. She also discussed a history of stress which may have exacerbated the outbreak. Treatment interventions prior to the visit had not been undertaken, and she describes the current status as progressively worsening with new blisters appearing yesterday. [facility] Medical History Postoperative hypothyroidism Thyroid disease Hyperparathyroidism Vitamin D deficiency Dysphagia HTN (hypertension) Subclinical hyperthyroidism Multinodular thyroid Surgical History No pertinent past surgical history Family History Father Heart disease Mother Thyroid disease Social History Household Members: Children Housing: House Do you presently have visiting nurse or other home services: No Alcohol intake: never Patient Tobacco Use Status: Never used Tobacco Female Reproductive History Menstrual Age of Menarche: 11 Review of Systems Const All systems reviewed & are unremarkable except as noted in HPI and below Physical Exam Vital Signs: Last Vital Signs Pulse 89 05/25/24 15:32 BP 116/74 05/25/24 15:32 Pulse Ox 98 05/25/24 15:32 Oxygen Delivery Method Room Air 05/25/24 15:32 BMI result Body Mass Index 40.4 Const General: cooperative, healthy appearing, comfortable, no acute distress and well developed Orientation/consciousness: patient oriented x3 Limitations: no limitations Eyes General: appearance normal, both eyes and all related structures Resp Effort & Inspection: normal respiratory effort and able to speak in complete sentences Skin Other: one small cluster (1cm x 1cm each) vesicular lesions with an erythematous base, similar sized cluster of crusted over lesions in dermatome V1 Neuro General: patient oriented x3 Assessment & Plan Assessment & Plan (1) Shingles outbreak: Code(s): B02.9 - Zoster without complications Qualifiers: Herpes zoster complications: without complications Qualified Code(s): B02.9 - Zoster without complications Plan: For the management of Herpes Zoster in V1 dermatome, I will prescribe an antiviral medication to attempt to prevent further progression, despite it being most effective within 72 hours of symptom onset. Due to recent blister development yesterday, I will start an antiviral regimen. I will prescribe gabapentin for nerve-related pain management and advise taking additional analgesics like acetaminophen or ibuprofen for pain relief. The patient is advised to monitor any signs of ocular involvement and seek immediate ophthalmological consultation should her condition affect or threaten her vision. Following recovery, she is eligible for the Shingles vaccine at age 49, and I recommend discussing this with her primary care physician once the current outbreak resolves. The prescription for the antiviral and pain management medication will be sent to her pharmacy for prompt pick-up and initiation. Patient was informed and verbally consented to the use of an ambient scribe for clinic note documentation during this visit. Medications: New gabapentin 100 mg PO Q8H PRN 30 caps 0RF nerve pain valacyclovir 1,000 mg PO Q8H 7 days 21 tabs 0RF Coding Level of Care Code New Pt Level 3 (08799) Diagnoses Herpes zoster without complication B02.9 Herpes zoster complications: without complications
== END 2024-05-25 15:58 | disposition home or self-care (01) ==
PROVIDERS: PCP Internal Medicine; Visit Provider Physician Assistant
DX: B02.9 Zoster without complications (principal)

== ENCOUNTER → 2024-05-25 15:00 | Outpatient (BNVA) | payer OTHER, SELFPAY | PROVIDERS: PCP Internal Medicine; Visit Provider Physician Assistant | DX: B02.9 Zoster without complications (principal) | CPT/HCPCS: 99202 ==

== ENCOUNTER 2024-07-14 11:10 | Outpatient (REF) | payer OTHER, SELFPAY ==
[2024-07-14 14:35] LABS: Amphetamine Screen Urine Not Detected (Not Detect); Barbiturates, Urine Not Detected (Not Detect); Benzodiazepines Screen Urine Not Detected (Not Detect); Buprenorphine Scr Not Detected (Not Detect); Cannabinoid Screen Urine Not Detected (Not Detect); Cocaine Screen Urine Not Detected (Not Detect); Fentanyl, urine Not Detected (Not Detect); Methadone Screen, Urine Not Detected (Not Detect); Opiate Screen Urine Not Detected (Not Detect); Oxycodone Screen Urine Not Detected (Not Detect); Phencyclidine Screen Urine Not Detected (Not Detect)
== END 2024-07-14 11:11 | disposition home or self-care (01) ==
LOC: CF 11:10
PROVIDERS: Visit Provider Registered Nurse
DX: F32.89 Other specified depressive episodes (principal)
CPT/HCPCS: 80307

== ENCOUNTER 2024-11-25 11:14 | Outpatient (REF) | payer OTHER, SELFPAY ==
[2024-11-25 14:41] LABS: Cholesterol 243 mg/dL (<200); HDL Cholesterol 46 mg/dL (>40); Iron 48 mcg/dL (30-160); LDL Cholesterol Calculated 166 mg/dL (<100); Percent Iron Saturation 17 % (15-50); Total Iron Binding Capacity 275 mcg/dL (228-428); Triglycerides 157 mg/dL (<150); Unsaturated Iron Binding 227 ug/dL
[2024-11-25 14:57] LABS: TSH reflex Free T4 1.27 uIU/mL (0.32-4.0); Vitamin D 25-OH Total 53.6 ng/mL (>30)
[2024-11-25 15:14] LABS: Folate 10.9 ng/mL (> or = 4.0); Vitamin B12 587 pg/mL (200-900)
== END 2024-11-25 11:15 | disposition home or self-care (01) ==
LOC: HO.CHCLDS 11:14
PROVIDERS: Visit Provider Internal Medicine
DX: I10 Essential (primary) hypertension (principal); E78.00 Pure hypercholesterolemia, unspecified; E03.9 Hypothyroidism, unspecified
CPT/HCPCS: 36415; 80061; 82306; 82607; 82746; 83540; 84443

== ENCOUNTER 2024-12-02 09:21 | Outpatient (REF) | payer OTHER, SELFPAY ==
--- NOTE | ~2024-12-02 | XR_ITS ---
CLINICAL HISTORY: LBP after a fall 5 views lumbar spine Comparison: None Findings: Normal heights of 5 lumbar vertebrae. No significant listhesis. Facet arthropathy is multifocal and most pronounced in the lower lumbar spine. Degenerative disc changes also include lower lumbar spine. L4 and L5 pars are partly obscured without definite lysis. Sacrum and SI joints are partly obscured. Degenerative changes include the imaged hips, right worse than left. Moderate stool burden partially imaged in the [id number]. IMPRESSION: 1. Degenerative disc changes and facet arthropathy particularly in the lower lumbar spine. 2. No acute compression fracture or posttraumatic malalignment of 5 lumbar vertebrae. 3. Degenerative changes include the partially imaged hips, right worse than left. This document has been electronically signed by: Malcom Davis MD on 12/02/2024 23:45:33
--- OUTSIDE RECORDS SUMMARY | 2024-12-02 10:07 | XMS_ITS | Clinical Summary ---
Author Organization [employer] Address [address] [facility] [address] [place] [address] Care Team Providers Care Public Transportation Inspector Name Role Phone Kathy Cox MD Primary Care Provider [phone] Allergies Active Allergy Reactions Criticality Noted Date Comments Aspirin 04/02/2019 Other reaction(s): Abdominal discomfort Medications * This document contains information received from the source organization and may not represent a complete record from that organization. fexofenadine (Mary) 180 MG tablet Take 1 tablet by mouth 1 (one) time each day. Take 1 tablet by oral route every day 10/19/19 22 Active fluticasone (Flonase) 50 MCG/ACT nasal spray Administer 1 spray into each nostril 1 (one) time each day. 1-2 spray by intranasal route every day in each nostril as needed for allergies. 10/26/19 22 Active calcium carbonate (Tums) 500 MG chewable tablet Chew 500 mg in the morning. Take 1 tablet once a day Active ketotifen (Zaditor) 0.025 % ophthalmic solutionIndication s:Allergic conjunctivitis of both eyes Administer 1 drop into both eyes 2 times daily. 10 mL 10/11/19 23 Active Blood Pressure kitIndications:Diane chidi hypertension To check the BP daily 1 kit 05/14/20 23 Active PARoxetine (Paxil) 10 MG tabletIndications: Anxiety Take 1 tablet (10 mg) by mouth in the morning. 30 tablet 11 04/28/20 24 025 Active topiramate (Topamax) 25 MG tabletIndications: Frontal headache TAKE ONE TABLET BY MOUTH EVERY MORNING 30 tablet 11 05/05/20 24 Active levothyroxine (Synthroid, Levoxyl) 125 MCG tablet TAKE ONE TABLET EVERY DAY 30 tablet 3 09/22/19 25 Active atenolol (Tenormin) 25 MG tablet TAKE ONE TABLET BY MOUTH EVERY MORNING 90 tablet 1 10/21/19 25 Active famotidine (Pepcid) 20 MG tabletIndications: Gastro-esophageal reflux disease without esophagitis TAKE ONE TABLET BY MOUTH AT BEDTIME 90 tablet 1 10/21/19 25 Active triamcinolone (Kenalog) 0.1 % ointmentIndication s:Irritant dermatitis APPLY A THIN LAYER TOPICALLY TWICE A DAY TO THE AFFECTED AREA(S) 30 g 10/21/19 25 Active losartan-hydroCHLO ROthiazide (Hyzaar) 50-12.5 MG tabletIndications: Primary hypertension Take 1 tablet by mouth Once per day. 30 tablet 11 11/26/19 25 026 Active Diclofenac Sodium 1 % gelIndications:Chr onic left-sided low back pain without sciatica,Hyperchol esterolemia To apply to the affected area 3 times a day 100 g 11/26/19 25 Active methocarbamol (Robaxin) 750 MG tabletIndications: Chronic left-sided low back pain without sciatica Take 1 tablet (750 mg) by mouth 4 times daily for 10 days. 40 tablet 11/26/19 25 025 Active levothyroxine (Synthroid, Levoxyl) 137 MCG tablet Take 137 mcg by mouth in the morning. 30 tablet 11 06/14/20 23 025 Discontin ued(Dose adjustmen t) hydroCHLOROthiazid e (HYDRODiuril) 25 MG tabletIndications: Essential (primary) hypertension TAKE ONE TABLET EVERY DAY 30 tablet 5 07/29/19 25 025 Discontin ued(Thera py completed ) Active Problems Problem Noted Date Diagnosed Date Hypercholesterolemia 11/25/2024 Persistent depressive disorder 06/26/2024 Assessment & Plan (06/29/2024 10:04 AM EST): During IBH Consult Sergul presenting with depressed mood, Tearful, crying spells , hopelessness, irritable mood, loss of interests/pleasure , sense of isolation/loneliness , isolating, change in appetite or weight overeating, changes in sleep difficulty falling asleep and difficulty staying asleep , psychomotor retardation, fatigue/loss of energy, worthlessness, inappropriate/excessive guilt , difficulty concentrating, indecisiveness; for a period of 18+ mo, for most or all symptoms in the context of family issues. Guanakito reported experiencing depressive symptoms for more than 2 years. Triggers associated with her family situation. She takes care of her son who has disability and her adult daughter diagnosed with bipolar disorder. Pt feels overwhelmed and hopeless. Her sense of spirituality is strong and identified as main protective factor. She has no time to practice self-care due to her busy schedule at home. PCP started medication about a month ago. Pt reported feeling a slight improvement in sxs. Guanakito likes to walk her dog as coping mechanisms to decrease her depression. clinician engaged patient with active/reflective listening. Reviewed and assessed for risk, current stressors and protective factors using open-ended questions. Guanakito was self-referred to [facility]; intake completed. Pt will be also referred to psychopharmacology with Estevan Castro clinician will provide additional support as needed. Acquired hypothyroidism 10/09/2022 Hyperparathyroidism 10/09/2022 Hypertensive disorder 05/14/2022 Obesity 05/14/2022 Photosensitivity 05/14/2022 Depression 06/14/2014 Encounters Date Type Department Care Team Description 11/25/2024 10:30 AM EDT Office Visit [facility] [address] [place] [address] Kathy Cox MD Primary hypertension (Primary Dx); Acquired hypothyroidism; Chronic left-sided low back pain without sciatica; Hypercholesterolemia; Encounter for immunization; Dietary counseling; Exercise counseling; Class 3 severe obesity due to excess calories with serious comorbidity and body mass index (BMI) of 40.0 to 44.9 in adult 11/25/2024 Results Follow-Up [facility] [address] [place] [address] Margi Julien RN Lipid Panel, Standard, TSH W/Reflex to FT4, Vitamin D, 25-Hydroxy, Total, Immunoassay, Iron And Total Iron Binding Capacity 11/25/2024 Travel 11/11/2024 Patient Outreach [facility] [address] [place] [address] Kathy Cox MD Pre-visit Planning (SDOH screening negative and Tobacco screening negative) 10/19/2024 Refill [facility] [address] [place] [address] Kathy Cox MD Irritant dermatitis 10/19/2024 Refill [facility] [address] [place] [address] Kathy Cox MD Anxiety; Gastro-esophageal reflux disease without esophagitis; Essential (primary) hypertension; Irritant dermatitis 10/19/2024 Refill [facility] [address] [place] [address] Kathy Cox MD Irritant dermatitis 09/21/2024 Refill [facility] [address] [place] [address] Kathy Cox MD from Last 3 Months Immunizations Immunization Administration Dates Next Due Hep B Immune Globulin 04/12/2016 Hep B, Unspecified 09/21/2016,03/09/2016 Hep B, adult 09/21/2016,04/12/2016,03/09/2016 Influenza injectable quadriv alent preservative free 05/14/2023 Influenza, IIV3, injectable 05/03/2014, 2 Influenza, seasonal, injecta ble, preservative free 04/28/2024 MMR 04/12/2016,09/03/2011 Pneumococcal Conjugate PCV 20 11/25/2024 TD (adult), 2 Lf tetanus tox oid, preservative free, adsorbed 12/06/2021,09/03/2011 Td (adult), unspecified 12/06/2021 Tdap 09/03/2011 Varicella 09/03/2011 Social History Tobacco Use Types Packs/Day Years Used Date Smoking Tobacco: Never Smokeless Tobacco: Never Tobacco Cessation:Counseling Given: No Depression Answer Date Recorded Patient Health Questionnaire-9 Score 17 06/29/2024 Patient Health Questionnaire-9 Score 17 06/29/2024 Last PHQ-9: Questionnaire Data Not on file 0 06/29/2024 Housing Stability Answer Date Recorded What is your housing situation today? I have [employer] 06/22/[address] you li ve. Do you have problems with any of the following? None of the above 06/22/2024 Food Insecurity Answer Date Recorded Within the past 12 months, y ou worried that your food would run out before you got money to buy more: Never True 06/22/2024 Within the past 12 months,th e food you bought just didn't last and you didn't have enough money to get more: Never True Transportation Answer Date Recorded In the past 12 months, has l ack of transportation kept you from medical appts, meetings, work or from getting things needed for daily living? No 06/22/2024 Utilities Answer Date Recorded In the past 12 months, has t he electric, gas, oil or water company threatened to shut off services in your home? No 06/22/2024 Depression Answer Date Recorded Patient Health Questionnaire-2 Score 6 06/29/2024 Internet Access Answer Date Recorded Internet Access Q1 Yes 06/22/2024 Internet Access Q2 Not on file 06/22/2024 Comments No Sex and Gender Information Value Date Recorded Sex Assigned at Female 04/23/2022 10:36 AM EDT Legal Sex Female 10:36 AM EDT Gender Identity Female 04/23/2022 10:36 AM EDT Sexual Orientation Straight 04/23/2022 10 :36 AM EDT Last Filed Vital Signs Vital Sign Reading Time Taken Comments Blood Pressure 152/102 11/25/2024 10:31 AM EDT Pulse 71 11/25/2024 10:31 AM EDT Temperature 36.7 ??C (98 ??F) 06/30/2024 1:47 PM EST Respiratory Rate 20 11/25/2024 10:31 AM EDT Oxygen Saturation 99% 11/25/2024 10:31 AM EDT Inhaled Oxygen Concentration - - Weight 98.9 kg (218 lb) 11/25/2024 10:31 AM EDT Height 154.9 cm (5' 1 ) 11/25/2024 10:31 AM EDT Body Mass Index 41.19 11/25/2024 10:31 AM EDT Plan of Treatment Upcoming Encounters Date Type Department Care Team (Late st Contact Info) Description 02/18/2025 3:15 PM EDT Office Visit [facility] [address] [place] [address] Kathy Cox MD [address] [place] [address] Health Maintenance Due Date Last Done Comments CT Colonography 1975 Colonoscopy 1975 FIT 1975 FOBT 1975 Sigmoidoscopy 1975 Disability Screening 1975 Alcohol/Substance Use Screening 1986 Family Planning (PISQ) 1989 Zoster Vaccines (1 of 2) 02/02/2024 COVID-19 Vaccine ( season) 2024 04/03/2021, 03/06/2021 Mammogram 08/22/2024 08/22/2022 Depression Monitoring 12/27/2024 06/29/2024, 025 Pap Smear 07/26/2025 07/26/2022, 12/26/2021 SDOH Screening 11/11/2025 11/11/2024 Tobacco Screening 11/25/2025 11/25/2024 Colorectal Cancer Screening 07/04/2027 FIT DNA/Cologuard 07/04/2027 07/04/2024 Cervical Cancer Screening 07/26/2027 HPV/Cotest 07/26/2027 07/26/2022, 12/26/2021 Lipid Panel 11/25/2029 11/25/2024, 11/0 10/2023, 12/18/2022, Additional history exists DTaP/Tdap/Td Vaccines (4 - Td or Tdap) 12/07/2031 12/06/2021, 12/06/2021, 09/03/2011, Additional history exists RSV Patients and Patients Aged 60 years or older (1 - 1-dose 75+ series) 2049 Hepatitis B Vaccines Completed 09/21/2016, 09/21/2016, 04/12/2016, Additional history exists Hepatitis C Screening Completed 12/27/2021 HIV Screening Completed 04/28/2024 Influenza Vaccine Completed 04/28/2024, , 05/03/2014, Additional history exists Pneumococcal Vaccine: 50+ Years Completed 11/25/2024 HIB Vaccines Aged Out No longer eligi ble based on patient's age to complete this topic HPV Vaccines Aged Out No longer eligi ble based on patient's age to complete this topic Hepatitis A Vaccines Aged Out No long er eligible based on patient's age to complete this topic IPV Vaccines Aged Out No longer eligi ble based on patient's age to complete this topic Meningococcal B Vaccine Aged Out No l onger eligible based on patient's age to complete this topic Meningococcal Vaccine Aged Out No fred michael eligible based on patient's age to complete this topic RSV under 20 months Aged Out No longe r eligible based on patient's age to complete this topic Rotavirus Vaccines Aged Out No longer eligible based on patient's age to complete this topic Procedures Procedure Name Priority Date/Time Associated Diagnosis Comments IRON AND TOTAL IRON BINDING CAPACITY Routine 11/25/2024 11:15 AM EDT Primary hypertension VITAMIN B12/FOLATE, SERUM PANEL Routine 11/25/2024 11:15 AM EDT Primary hypertension VITAMIN D,25-OH,TOTAL,IA Routine 11/25/2024 11:15 AM EDT Primary hypertension TSH W/REFLEX TO FT4 Routine 11/25/2024 1 1:15 AM EDT Acquired hypothyroidism LIPID PANEL, STANDARD Routine 11/25/2024 11:15 AM EDT Hypercholesterolemia LAB COLOGUARD?? COLON CANCER SCREEN Routine 07/04/2024 8:30 AM EST Screening for colon cancer HIV 1/2 ANTIGEN/ANTIBODY, FOURTH GENERATION W/RFL Routine 04/28/2024 11:56 AM EST Primary hypertension Acquired hypothyroidism HPV MRNA E6/E7 REFLEX TO HPV 16, 18/45 Routine 07/26/2022 1:27 PM EST PAP SMEAR Routine 07/26/2022 1:27 PM EST ZZZ HISTORICAL HEPATITIS C AB W/REFL TO HCV RNA, QN, PCR Routine 12/27/2021 11:29 AM EDT from Last 3 Months or Most Recently Relevant to Health Maintenance Results * Vitamin D, 25-Hydroxy, Total, Immunoassay (11/25/2024 11:15 AM EDT) Vitamin D 25-OH Total 53.6 >30 ng/mL [facility] Comment: Health Based Reference Values*< 20 ??ng/mL ??Ittxnmnoc43-50 ng/mL ??Insufficient> 30 ??ng/mL ??Sufficient*Kirti YOUSSEF. N Engl J Med. 2007;357:266-280There is no well-established upper level of normal vitamin Dlevels. Some laboratories use 50 ng/mL as an upper limit ofnormal. However, toxicity is patient-dependent and may occurat any level. Careful correlation with the patient'spresentation is necessary and, if there is concern forvitamin D toxicity, treatment should be consideredirrespective of the serum level.Care must be taken in interpreting Vitamin D results fromdifferent laboratories and methodologies. ??Published datademonstrated that results from patients undergoinghemodialysis may show a negative bias when tested withvarious automated 25-OH vitamin D assays when compared toLC- MS/MS.When testing samples from patients whose predominant form ofVitamin D is Vitamin D2, such as patients receiving VitaminD2 supplementation, results that are subtherapeutic shouldbe confirmed with another method such as LC-MS/MS. Blood Venous blood specimen / Unknown 11/25/2024 11:15 AM EDT 11/25/2024 2:15 PM EDT us Kathy Cox MD LAB BLOOD ORDERABLES Final Result [facility] [address] [place] [address] [phone] * Vitamin B12/Folate, Serum Panel (11/25/2024 11:15 AM EDT) Vitamin B12 587 200 - 900 pg/mL [facility] Comment:NORMAL 200-900 PG/ML INDETERMINATE 160-199 PG/ML DEFICIENT < 160 PG/ML Folate 10.9 > or = 4.0 ng/mL [facility] Comment:Reference Values:> o r = 4.0 ng/mL< 4.0 ng/mL suggests folate deficiency Methotrexate, aminopterin and folinic acid(leucovorin) are chemotherapeutic agents whose molecularstructures are similar to folate; therefore, the Architectfolate assay cannot be used for patients using these drugs. Blood Venous blood specimen / Unknown 11/25/2024 11:15 AM EDT 11/25/2024 2:15 PM EDT us Kathy Cox MD LAB BLOOD ORDERABLES Final Result Performing Organization Address [facility]/ZIP Co de Phone Number [facility] [address] [place] [phone] * TSH W/Reflex to FT4 (11/25/2024 11:15 AM EDT) TSH reflex Free T4 1.27 0.32 - 4.0 uIU/mL [facility] Blood Venous blood specimen / Unknown 11/25/2024 11:15 AM EDT 11/25/2024 2:15 PM EDT us Kathy Cox MD LAB BLOOD ORDERABLES Final Result Performing Organization Address [facility]/ZIP Co de Phone Number [facility] [address] [place] [phone] * Iron And Total Iron Binding Capacity (11/25/2024 11:15 AM EDT) Iron 48 30 - 160 mcg/dL [facility] Total Iron Binding Capacity 275 228 - 428 mcg/dL [facility] Percent Iron Saturation 17 15 - 50 % [facility] Unsaturated Iron Binding 227 ug/dL [facility] Blood Venous blood specimen / Unknown 11/25/2024 11:15 AM EDT 11/25/2024 2:15 PM EDT us Kathy Cox MD LAB BLOOD ORDERABLES Final Result [facility] [address] [place] [address] [phone] * (ABNORMAL) Lipid Panel, Standard (11/25/2024 11:15 AM EDT) Triglycerides 157(H) <150 mg/dL [facility] Comment:Desirable Triglyceri de: less than 150 mg/dLBorderline High Triglyceride 150-199 mg/dLHigh Triglyceride: 200-499 mg/dLVery High Triglyceride: greater than or equal to 5OO mg/dL Cholesterol 243(H) <200 mg/dL [facility] Comment:Desirable Cholestero l: less than 200 mg/dLBorderline High Cholesterol: 200-239 mg/dLHigh Cholesterol: greater than 239 mg/dL LDL Cholesterol Calculated 166(H) <100 mg/dL [facility] Comment:Desirable LDL: less than 100 mg/dLNear Optimal/Above Optimal LDL: 110- 129 mg/dLBorderline High LDL: 130-159 mg/dLHigh LDL: 160-189 mg/dLVery High LDL: greater than or equal to 190 mg/dL HDL Cholesterol 46 >40 mg/dL [facility] Comment:Desirable HDL: great er than 40 mg/dL Note: This HDL assay may give artificially low results in patients with liver disease. Blood Venous blood specimen / Unknown 11/25/2024 11:15 AM EDT 11/25/2024 2:15 PM EDT us Kathy Cox MD LAB BLOOD ORDERABLES Final Result [facility] [address] [place] [address] [phone] * Cologuard?? colon cancer screening (07/04/2024 8:30 AM EST) Cologuard Result Negative Negative 07/13/19 10:02 AM EST [facility] (CLIA #:[id number]) Comment: NEGATIVE TEST RESULT. A negative Cologuard result indicates a low likelihood that a colorectal cancer (CRC) or advanced adenoma (adenomatous polyps with more advanced pre-malignant features) ??is present. The chance that a person with a negative Cologuard test has a colorectal cancer is less than 1 in 1500 (negative predictive value >99.9%) or has an ??advanced adenoma is less than ??5.3% (negative predictive value 94.7%). These data are based on a prospective cross-sectional study of 10,000 individuals at average risk for colorectal cancer who were screened with both Cologuard and colonoscopy. (Allen Hernadez. et al, N Engl J Med 2014;370(14):1286- 1297) The normal value (reference range) for this assay is negative. COLOGUARD RE-SCREENING RECOMMENDATION: Periodic colorectal cancer screening is an important part of preventive healthcare for asymptomatic individuals at average risk for colorectal cancer. ??Following a negative Cologuard result, the [place] Cancer Society and U.S. Multi-Society Task Force screening guidelines recommend a Cologuard re-screening interval of 3 years. References: [employer] Cancer Society Guideline for Colorectal Cancer Screening: https://www.cancer.org/cancer/baixv-vnivdm-claocv/vkfqgopiq-exxxbotlg-gwuadbr/ac s-rec ommendations.html.; Rod RASMUSSEN, Charissa VÁZQUEZ, Mary SotoK, Colorectal Cancer Screening: Recommendations for Physicians and Patients from the U.S. Multi-Society Task Force on Colorectal Cancer Screening , Am J Gastroenterology 2017; 112:4447-4426. TEST DESCRIPTION: Composite algorithmic analysis of stool DNA-biomarkers with hemoglobin immunoassay. ?? Quantitative values of individual biomarkers are not reportable and are not associated with individual biomarker result reference ranges. Cologuard is intended for colorectal cancer screening of adults of either sex, 45 years or older, who are at average-risk for colorectal cancer (CRC). Cologuard has been approved for use by the U.S. FDA. The performance of Cologuard was established in a cross sectional study of average-risk adults aged 50-84. Cologuard performance in patients ages 45 to 49 years was estimated by sub-group analysis of near-age groups. Colonoscopies performed for a positive result may find as the most clinically significant lesion: colorectal cancer [4.0%], advanced adenoma (including sessile serrated polyps greater than or equal to 1cm diameter) [20%] or non- advanced adenoma [31%]; or no colorectal neoplasia [45%]. These estimates are derived from a prospective cross-sectional screening study of 10,000 individuals at average risk for colorectal cancer who were screened with both Cologuard and colonoscopy. (Allen Chauhan et al, N Engl J Med 2014;370(14):9476-0839.) Cologuard may produce a false negative or false positive result (no colorectal cancer or precancerous polyp present at colonoscopy follow up). A negative Cologuard test result does not guarantee the absence of CRC or advanced adenoma (pre-cancer). The current Cologuard screening interval is every 3 years. ([employer] Cancer Society and U.S. Multi-Society Task Force). Cologuard performance data in a 10,000 patient pivotal study using colonoscopy as the reference method can be accessed at the following location: www.[employer]/results. Additional description of the Cologuard test process, warnings and precautions can be found at www.Streamixrd.com. Stool specimen (specimen) 07/04/2024 8:30 AM EST 07/07/2024 12:40 PM EST us Kathy Cox MD LAB MOLECULAR DIAGNOSTICS O RDERABLES Final Result [facility] (CLIA #:[id number]) [place] [address], * HIV-1/2 Antigen and Antibodies, Fourth Generation, with Reflexes (04/28/2024 11:56 AM EST) HIV AB/AG Nonreactive Nonreactive [facility] Comment:HIV-1 p24 Ag and/or HIV-1/HIV-2 Ab not detected.A test result that is nonreactive does not exclude thepossibility of exposure to or infection with HIV-1 and/orHIV-2. Nonreactive results in this assay for individualswith prior exposure to HIV-1 and/or HIV-2 may be due toantigen and antibody levels that are below the limit ofdetection of this assay.The [employer] Al[employer] HIV Ag/Ab Combo assay result andsupplemental assay results should be interpreted inconjunction with the patient's clinical presentation,history and other laboratory results. If the results areinconsistent with clinical evidence, additional testing issuggested to confirm the result. Blood Venous blood specimen / Unknown 04/28/2024 11:56 AM EST 04/28/2024 2:23 PM EST us Kathy Cox MD LAB BLOOD ORDERABLES Final Result [facility] [address] [place] [phone] * HPV mRNA E6/E7 w/Reflex to HPV Genotypes 16, 18/45 (07/26/2022 1:27 PM EST) HPV nRNA E6/E7 Not Detected Not Detected [facility] Comment:Methodology: Transcr iption-Mediated AmplificationThis assay detects E6/E7 viral messenger RNA (mRNA) from 14high-risk HPV types (16,18,31,33,35,39,45,51,52,56,58,59,66,68).Cervical sources are required for HPV testing.If a vaginal source from a patient who has had atotal hysterectomy with removal of cervix wassubmitted, please contact the testing laboratoryfor alternative testing options.For additional information, please refer tohttp://education.Game Closure/faq/FCS126v4(This link if provided for information/educational purposes only.)THIS TEST WAS PERFORMED AT:[facility] [place] [address] ([facility])[place] [phone] CASTELAN MD HPV mRNA E6/E7 TNP [facility] HPV 16 RNA [facility] HPV 18/45 RNA [facility] 07/26/2022 1:27 PM EST 07/26/2022 5:00 PM EST [facility] External Provider LAB CYT MELODY ORDERABLES Final Result [facility] [address] [place] [phone] * Pap Smear (07/26/2022 1:27 PM EST) 07/26/2022 1:27 PM EST 07/26/2022 5:00 PM EST Narrative [facility] - 08/03/2022 4:58 PM EST ----- ------- Name: Guanakito Corcoran ? Age/Sex: 47/F ? : 1975 Unit#: [id number] ?? Attend Dr: Jim Smith MD ?Re07/26/22 ?Status: DEP REF ? Location: HO.LNP ?Disch: ? ----- ------- SPEC : [id number] ? RECD: 07/26/22-1700 ? STATUS: ??SOUT ? REQ NUM: [id number] ? FABIO: 07/26/22-1327 ? SUBM DR: Jim Smith MD ? ENTERED: ??07/26/22 ?SP TYPE: Pap Smr ?OTHR DR: Kathy Cox MD ? ORDERED: ??Pap Smear ? Interpretation ?? Satisfactory for evaluation. ?? Negative for intraepithelial lesion or malignancy. ?? Atrophic. ? HPV mRNA E6/E7: ?NOT DETECTED ? This assay detects E6/E7 viral messenger RNA (mRNA) from 14 high-risk HPV types (16, 18, ?? 31, 33, 35, 39, 45, 51, 52, 56, 58, 59, 66, 68) ? HPV testing performed by [facility], [place], [place]. ??See reference laboratory ?? portion of the EMR for entire report. ?Clinical Information LMP: Unknown Previous PAP test: Unknown, WNL ? Material Received ?? ThinPrep-Cervical Copies To: ?? Kathy Cox MD ?? [address] ?? [place] [id number] ? Jim Smith MD ?? [address] [place] [address] [address]. [address] ?? [place] [address] ?? [phone] ----- ------- Signed (signature on file) Rebeca Kim 08/03/221657 ? ----- ------- ? END OF REPORT ? [facility] External Provider LAB [facility] ORDERABLES Final Result [facility] [address] [place] [phone] * HEPATITIS C AB W/REFL TO HCV RNA, QN, PCR (12/27/2021 11:29 AM EDT) HEPATITIS C ANTIBODY NON-REACT [facility] INDEX 0.04 <1.00 [facility] Comment: ?? HCV antibody was non-reactive. There is no laboratory ?? evidence of HCV infection. ?? In most cases, no further action is required. However, if recent HCV exposure is suspected, a test for HCV RNA (test code 07067) is suggested. ?? For additional information please refer to http://education.[employer].Feedback-Machine/faq/SEU95l8 (This link is being provided for informational/ educational purposes only.) ?? 12/27/2021 11:2 9 AM EDT Kathy Cox MD HISTORICAL/NON ORDERABLE ALEXANDRA HOLMAN Final Result [facility] [address] [place] [address], from Last 3 Months or Most Recently Relevant to Health Maintenance Insurance [employer] 3 Care Teams Public Transportation Inspector Relationship Specialty Start Date End Date Kathy Cox MD [address] [place] [id number] PCP - General Internal Medicine 04/02/19
== END 2024-12-02 09:22 | disposition home or self-care (01) ==
LOC: HO.XRAY 09:21
PROVIDERS: PCP Internal Medicine; Visit Provider Internal Medicine
DX: M54.50 Low back pain, unspecified (principal); G89.29 Other chronic pain
CPT/HCPCS: 72110

== ENCOUNTER → 2024-12-02 09:25 | Outpatient (BNV) | payer OTHER, SELFPAY | PROVIDERS: PCP Internal Medicine; Visit Provider Radiology Neuroradiology | DX: M51.369 Other intervertebral disc degeneration, lumbar region without mention of lumbar back pain or lower extremity pain (principal) | CPT/HCPCS: 72110 ==

== ENCOUNTER 2025-02-25 13:01 | Outpatient (REF) | payer OTHER, SELFPAY ==
--- NOTE | ~2025-02-25 | US_ITS ---
EXAMINATION: US PELVIS CLINICAL INFORMATION: Leiomyoma uterus. COMPARISON: February 13, 2024. TECHNIQUE: Ultrasound of the pelvis is performed using both transabdominal and transvaginal transducers along with Doppler. Transvaginal imaging is performed due to inadequate visualization transabdominally. FINDINGS: Uterus: The uterus is anteversion flexion and measures 7 x 4 x 4 cm. Volume: 64 cc. The double wall endometrial thickness is 3 mm. Heterogeneous parenchyma. There is a 4.5 cm slightly hyperechoic nodular lesion, fundus of the uterus. There is a 2.6 cm heterogeneous isoechoic lesion at the left side of the fundus near the left cornue. There is a 1.2 cm heterogeneous hypoechoic lesion in the anterior body of the uterus. Adnexa: The ovaries are not identified.. No free fluid in cul-de-sac. US/US pelvic and transvaginal IMPRESSION: Leiomyomata uterine slightly larger since prior exam. The largest measures 4.5 cm and previously 3.7 cm The ovaries are not identified. No free fluid in the cul-de-sac.. Electronically signed by: Yfn Sanchez MD 02/25/2025 02:32 PM EDT
--- OUTSIDE RECORDS SUMMARY | 2025-02-25 14:16 | XMS_ITS | Encounter Summary ---
Author Organization [employer] Address [address] [place] [address] Care Team Providers Care Tool Trouble Shooter Name Role Phone Kathy Cox MD Primary Care Provider [phone] Reason for Visit * Reason Comments Med Refill Encounter Details Date Type Department Care Team ([facility] st Contact Info) Description 12/25/2023 Refill [facility] [address], [place] [id number] Kathy Cox MD [address] [place] [address] Social History Tobacco Use Types Packs/Day Years Used Date Smoking Tobacco: Never Smokeless Tobacco: Never Depression Answer Date Recorded Patient Health Questionnaire-9 Score 4 10/09/2022 Housing Stability Answer Date Recorded What is your housing situation today? Not on radha e 04/08/[address] you li ve. Do you have problems with any of the following? None of the above 04/08/2023 Food Insecurity Answer Date Recorded Within the past 12 months, y ou worried that your food would run out before you got money to buy more: Never True 04/08/2023 Within the past 12 months,th e food you bought just didn't last and you didn't have enough money to get more: Never True Utilities Answer Date Recorded In the past 12 months, has t he electric, gas, oil or water company threatened to shut off services in your home? No 04/08/2023 Depression Answer Date Recorded Patient Health Questionnaire-2 Score 1 10/09/2022 Comments No Sex and Gender Information Value Date Recorded Sex Assigned at Female 04/23/2022 10:36 AM EDT Legal Sex Female 10:36 AM EDT Gender Identity Female 04/23/2022 10:36 AM EDT Sexual Orientation Straight 04/23/2022 10 :36 AM EDT documented as of this encounter Plan of Treatment Upcoming Encounters Date Type Department Care Team ([facility] st Contact Info) Description 04/21/2025 9:45 AM EDT Office Visit [facility] [address] [place] [address] Kathy Cox MD [address] [place] [address] documented as of this encounter Visit Diagnoses Not on filedocumented in this encounter Additional Health Concerns Assessment Noted Time PHQ-9 Depression Total Score: 4 10/10/19 23 10:50 AM EDT documented as of this encounter Care Teams Tool Trouble Shooter Relationship Specialty Start Date End Date Kathy Cox MD [address] [place] [address] PCP - General Internal Medicine 04/02/19 documented as of this encounter
--- OUTSIDE RECORDS SUMMARY | 2025-02-25 14:16 | XMS_ITS | Clinical Summary ---
Author Organization [employer] Address [address] [facility] 7[address] [place] [address] Care Team Providers Care Filling Separator Name Role Phone Kathy Cox MD Primary Care Provider [phone] Allergies Active Allergy Reactions Criticality Noted Date Comments Aspirin 04/02/2019 Other reaction(s): Abdominal discomfort Medications * This document contains information received from the source organization and may not represent a complete record from that organization. fexofenadine (Mary) 180 MG tablet Take 1 tablet by mouth 1 (one) time each day. Take 1 tablet by oral route every day 022 Active fluticasone (Flonase) 50 MCG/ACT nasal spray Administer 1 spray into each nostril 1 (one) time each day. 1-2 spray by intranasal route every day in each nostril as needed for allergies. 022 Active ketotifen (Zaditor) 0.025 % ophthalmic solutionIndicatio ns:Allergic conjunctivitis of both eyes Administer 1 drop into both eyes 2 times daily. 10 mL 023 Active Blood Pressure kitIndications:Pr imary hypertension To check the BP daily 1 kit 023 Active PARoxetine (Paxil) 10 MG tabletIndications :Anxiety Take 1 tablet (10 mg) by mouth in the morning. 30 tablet 11 024 2024 Active topiramate (Topamax) 25 MG tabletIndications :Frontal headache TAKE ONE TABLET BY MOUTH EVERY MORNING 30 tablet 11 024 Active atenolol (Tenormin) 25 MG tablet TAKE ONE TABLET BY MOUTH EVERY MORNING 90 tablet 1 04/29/2 025 Active famotidine (Pepcid) 20 MG tabletIndications :Gastro-esophagea l reflux disease without esophagitis TAKE ONE TABLET BY MOUTH AT BEDTIME 90 tablet 1 Active triamcinolone (Kenalog) 0.1 % ointmentIndicatio ns:Irritant dermatitis APPLY A THIN LAYER TOPICALLY TWICE A DAY TO THE AFFECTED AREA(S) 30 g Active Diclofenac Sodium 1 % gelIndications:Ch ronic left-sided low back pain without sciatica,Hypercho lesterolemia To apply to the affected area 3 times a day 100 g Active methocarbamol (Robaxin) 750 MG tabletIndications :Chronic left-sided low back pain without sciatica Take 1 tablet (750 mg) by mouth 4 times daily for 10 days. 40 tablet Active losartan-hydroCHL OROthiazide (Hyzaar) 100-25 MG tabletIndications :Primary hypertension Take 1 tablet by mouth Once per day. 30 tablet 11 025 2025 Active levothyroxine (Synthroid, Levoxyl) 125 MCG tabletIndications :Acquired hypothyroidism Take 1 tablet (125 mcg) by mouth Once per day. 30 tablet 3 Active calcium carbonate (Tums) 500 MG chewable tablet Chew 500 mg in the morning. Take 1 tablet once a day 2024 Discontinued(T herapy completed) losartan-hydroCHL OROthiazide (Hyzaar) 50-12.5 MG tabletIndications :Primary hypertension Take 1 tablet by mouth Once per day. 30 tablet 11 025 2024 Discontinued levothyroxine (Synthroid, Levoxyl) 125 MCG tablet TAKE ONE TABLET EVERY DAY 30 tablet 3 025 2024 Discontinued(R eorder (will not trigger notification to Pharmacy)) Active Problems Problem Noted Date Diagnosed Date [...] using open-ended questions. Guanakito was self-referred to [facility]; intake completed. Pt will be also referred to psychopharmacology with Estevan Castro clinician will provide additional support as needed. Acquired hypothyroidism 10/09/2022 Hyperparathyroidism 10/09/2022 Hypertensive disorder 05/14/2022 Obesity 05/14/2022 Photosensitivity 05/14/2022 Depression 06/14/2014 Encounters Date Type Department Care Team Description 02/18/2025 3:15 PM EDT Office Visit [facility] [address] [place] [address] Kathy Cox MD Primary hypertension (Primary Dx); Acquired hypothyroidism; Hypercholesterolemia; Anxiety 02/18/2025 Travel 02/17/2025 Travel 01/25/2025 Refill [facility] [address] [place] [address] Kathy Cox MD 11/25/2024 10:30 AM EDT Office Visit [facility] [address] [place] [address] Kathy Cox MD Primary hypertension (Primary Dx); Acquired hypothyroidism; Chronic left-sided low back pain without sciatica; Hypercholesterolemia; Encounter for immunization; Dietary counseling; Exercise counseling; Class 3 severe obesity due to excess calories with serious comorbidity and body mass index (BMI) of 40.0 to 44.9 in adult 11/25/2024 Results Follow-Up [facility] [address] [place] [address] Margi Julien RN Lipid Panel, Standard, TSH W/Reflex to FT4, Vitamin D, 25-Hydroxy, Total, Immunoassay, Additional followed-up results: 2 11/25/2024 Travel from Last 3 Months Immunizations Immunization Administration [...] Sign Reading Time Taken Comments Blood Pressure 138/95 02/18/2025 3:14 PM EDT Pulse 65 02/18/2025 3:14 PM EDT Temperature 36.8 C (98.2 F) 02/18/2025 3:14 PM EDT Respiratory Rate 19 02/18/2025 3:14 PM EDT Oxygen Saturation 97% 02/18/2025 3:14 PM EDT Inhaled Oxygen Concentration - - Weight 98.4 kg (217 lb) 02/18/2025 3:14 PM EDT Height 154.9 cm (5' 1 ) 02/18/2025 3:14 PM EDT Body Mass Index 41 02/18/2025 3:14 PM EDT Plan of Treatment Upcoming Encounters Date Type Department Care Team (Late st Contact Info) Description 04/21/2025 9:45 AM EDT Office Visit [facility] [address] [place] [address] Kathy Cox MD [address] [place] [address] Health Maintenance Due Date Last Done Comments CT Colonography 1975 Colonoscopy 1975 FIT 1975 Sigmoidoscopy 1975 Family Planning (PISQ) 1989 Zoster Vaccines (1 of 2) 02/02/2024 Mammogram 08/22/2024 08/22/2022 Depression Monitoring 12/27/2024 06/29/2024, 025 COVID-19 Vaccine (3 - season) 2025 04/03/2021, 03/06/2021 Influenza Vaccine (#1) 2025 , 05/14/2023, 05/03/2014, Additional history exists FOBT 07/04/2025 07/04/2024 Pap Smear 07/26/2025 07/26/2022, 12/26/2021 SDOH Screening 11/11/2025 11/11/2024 Tobacco Screening 11/25/2025 11/25/2024 Disability Screening 02/17/2026 02/17/2025 Alcohol/Substance Use Screening 02/18/2026 02/18/2025 Colorectal Cancer Screening 07/04/2027 FIT DNA/Cologuard 07/04/2027 [...] Screening Completed 12/27/2021 HIV Screening Completed 04/28/2024 Pneumococcal Vaccine: 50+ Years Completed 11/25/2024 HIB [...] Procedure Name Priority Date/Time Associated Diagnosis Comments XR LUMBAR SPINE COMPLETE 4+ VIEWS Routine 12/02/2024 11:45 PM EDT Chronic left-sided low back pain without sciatica IRON AND TOTAL IRON BINDING CAPACITY Routine 11/25/2024 11:15 AM EDT Primary hypertension VITAMIN B12/FOLATE, SERUM PANEL Routine 11/25/2024 11:15 AM EDT Primary hypertension VITAMIN D,25-OH,TOTAL,IA Routine 11/25/2024 11:15 AM EDT Primary hypertension TSH W/REFLEX TO FT4 Routine 11/25/2024 1 1:15 AM EDT Acquired hypothyroidism LIPID PANEL, STANDARD Routine 11/25/2024 11:15 AM EDT Hypercholesterolemia LAB COLOGUARD COLON CANCER SCREEN Routine 07/04/2024 8:30 AM [...] Recently Relevant to Health Maintenance Results * XR Lumbar Spine Complete 4+ Views (12/02/2024 11:45 PM EDT) Anatomical Region Laterality Modality Spine, L-spine Radiographic Sonali ging 12/02/2024 11:4 5 PM EDT Narrative 12/02/2024 11:47 PM EDT [address] [address] XRay Report Signed Patient: Guanakito Corcoran MR#: [id number] : 1975 Acct:[id number] Age/Sex: 49 / F ADM Date: 12/02/24 Loc: HO.XRAY Attending Dr: Kathy Cox MD Ordering Physician: Kathy Cox MD Date of Service: 12/02/24 Procedure(s): XR lumbar spine 4V min Accession Number(s): [id number] cc: Kathy Cox MD CLINICAL HISTORY: LBP after a fall 5 views lumbar spine Comparison: None Findings: Normal heights of 5 lumbar vertebrae. No significant listhesis. Facet arthropathy is multifocal and most pronounced in the lower lumbar spine. Degenerative disc changes also include lower lumbar spine. L4 and L5 pars are partly obscured without definite lysis. Sacrum and SI joints are partly obscured. Degenerative changes include the imaged hips, right worse than left. Moderate stool burden partially imaged in the [id number]. IMPRESSION: 1. Degenerative disc changes and facet arthropathy particularly in the lower lumbar spine. 2. No acute compression fracture or posttraumatic malalignment of 5 lumbar vertebrae. 3. Degenerative changes include the partially imaged hips, right worse than left. This document has been electronically signed by: Malcom Davis MD on 12/02/2024 23:45:33 Dictated By: Malcom Davis MD Signed By: <Electronically signed by Malcom Davis MD in OV> 12/02/242345 DD/ 44 TD/TT: 12/02/242344 Kiln Tester: Procedure Note Donotuseinterpreter, Image - 12/02/[address] [address] XRay Report Signed Patient: Inder Corcoran#: [id number] : 1975Acct:[id number] Age/Sex: 49 / FADM Date: 12/02/24 Loc: HO.XRAY Attending Dr: Kathy Cox MD Ordering Physician: Kathy Cox MD Date of Service: 12/02/24 Procedure(s): XR lumbar spine 4V min Accession Number(s): [id number] cc: Kathy Cox MD CLINICAL HISTORY: LBP after a fall 5 views lumbar spine Comparison: None Findings: Normal heights of 5 lumbar vertebrae. No significant listhesis. Facet arthropathy is multifocal and most pronounced in the lower lumbar spine. Degenerative disc changes also include lower lumbar spine. L4 and L5 pars are partly obscured without definite lysis. Sacrum and SI joints are partly obscured. Degenerative changes include the imaged hips, right worse than left. Moderate stool burden partially imaged in the [id number]-bb-blgm. IMPRESSION: 1. Degenerative disc changes and facet arthropathy particularly in the lower lumbar spine. 2. No acute compression fracture or posttraumatic malalignment of 5 lumbar vertebrae. 3. Degenerative changes include the partially imaged hips, right worse than left. This document has been electronically signed by: Malcom Davis MD on 12/02/2024 23:45:33 Dictated By: Malcom Davis MD Signed By: <Electronically signed by Malcom Davis MD in OV> 12/02/242345 DD/ 44 TD/TT: 12/02/242344 Kiln Tester: Kathy Cox MD IMG XR PROCEDURES Edited Re sult - Final * Vitamin D, 25-Hydroxy, Total, Immunoassay (11/25/2024 11:15 AM EDT) Vitamin D 25-OH Total 53.6 >30 ng/mL [facility] Comment: Health Based Reference Values*< 20 ng/mL Tfrwmvctj47-92 ng/mL Insufficient> 30 ng/mL Sufficient*Kirti YOUSSEF. N Engl J Med. 2007;357:266-280There is [...] Vitamin D results fromdifferent laboratories and methodologies. Published datademonstrated that results from patients undergoinghemodialysis may show a negative bias when tested withvarious automated 25-OH vitamin D assays when compared toLC-MS/MS.When testing samples from patients whose predominant form ofVitamin D is Vitamin D2, such as patients receiving VitaminD2 supplementation, results that are subtherapeutic shouldbe confirmed with another method such as LC-MS/MS. Blood Venous blood specimen / Unknown 11/25/2024 11:15 AM EDT 11/25/2024 2:15 PM EDT us Kathy Cox MD LAB BLOOD ORDERABLES Final Result [facility] [address] [place] [phone] * Vitamin B12/Folate, Serum Panel (11/25/2024 11:15 AM EDT) Vitamin B12 587 200 - 900 pg/mL [facility] Comment:NORMAL 200-900 PG/ML INDETERMINATE 160-199 PG/ML DEFICIENT < 160 PG/ML Folate 10.9 > or = 4.0 ng/mL [facility] Comment:Reference Values:> o r = [...] BLOOD ORDERABLES Final Result Performing Organization Address City/[facility]/ZIP Co de Phone Number [facility] [address] [place] [phone] * TSH W/Reflex to FT4 (11/25/2024 11:15 AM EDT) Pathologist [facility] TSH reflex Free T4 1.27 0.32 - 4.0 uIU/mL [facility] Blood Venous blood specimen / Unknown 11/25/2024 11:15 AM EDT 11/25/2024 2:15 PM EDT us Kathy Cox MD LAB BLOOD ORDERABLES Final Result Performing Organization Address [facility] Co de Phone Number [facility] [address] [place] [phone] * Iron And Total Iron Binding Capacity (11/25/2024 11:15 AM EDT) [facility] Iron 48 30 - 160 mcg/dL [facility] Total Iron Binding Capacity 275 228 - 428 mcg/dL [facility] Percent Iron Saturation 17 15 - 50 % [facility] Unsaturated Iron Binding 227 ug/dL [facility] Blood Venous blood specimen / Unknown 11/25/2024 11:15 AM EDT 11/25/2024 2:15 PM EDT us Kathy Cox MD LAB BLOOD ORDERABLES Final Result Performing Organization Address [facility] Co de Phone Number [facility] [address] [place] [phone] * (ABNORMAL) Lipid Panel, Standard (11/25/2024 11:15 AM EDT) Pathologist [facility] Triglycerides 157(H) <150 mg/dL [facility] Comment:Desirable Triglyceri de: less than 150 mg/dLBorderline High Triglyceride 150-199 mg/dLHigh Triglyceride: 200-499 mg/dLVery High Triglyceride: greater than or equal to 5OO mg/dL Cholesterol 243(H) <200 mg/dL [facility] Comment:Desirable Cholestero l: less than 200 mg/dLBorderline High Cholesterol: 200-239 mg/dLHigh Cholesterol: greater than 239 mg/dL LDL Cholesterol Calculated 166(H) <100 mg/dL [facility] Comment:Desirable LDL: less than 100 mg/dLNear Optimal/Above Optimal LDL: 110- 129 mg/dLBorderline High LDL: 130-159 mg/dLHigh LDL: 160-189 mg/dLVery High LDL: greater than or equal to 190 mg/dL HDL Cholesterol 46 >40 mg/dL [facility] Comment:Desirable HDL: great er than 40 mg/dL Note: This HDL assay may give artificially low results in patients with liver disease. Blood Venous blood specimen / Unknown 11/25/2024 11:15 AM EDT 11/25/2024 2:15 PM EDT Kathy Cox MD LAB BLOOD ORDERABLES Final Result [facility] [address] [place] [phone] * Cologuard?? colon cancer screening (07/04/2024 8:30 AM EST) Cologuard Result Negative Negative 07/13/19 10:02 AM EST [facility] (CLIA #:[id number]) Comment: NEGATIVE TEST RESULT. A negative Cologuard result indicates a low likelihood that a colorectal cancer (CRC) or advanced adenoma (adenomatous polyps with more advanced pre-malignant features) is present. The chance that a person with a negative Cologuard test has a colorectal cancer is less than 1 in 1500 (negative predictive value >99.9%) or has an advanced adenoma is less than 5.3% (negative predictive value 94.7%). These data are based on a prospective cross-sectional study of 10,000 individuals at average risk for colorectal cancer who were screened with both Cologuard and colonoscopy. (Allne Chauhan et al, N Engl J Med 2014;370(14):2684-4512) The normal value (reference range) for this assay is negative. COLOGUARD RE-SCREENING RECOMMENDATION: Periodic colorectal cancer screening is an important part of preventive healthcare for asymptomatic individuals at average risk for colorectal cancer. Following a negative Cologuard result, the [place] Cancer Society and U.S. Multi-Society Task Force screening guidelines recommend a Cologuard re-screening interval of 3 years. References: [place] Cancer Society Guideline for Colorectal Cancer Screening: https://www.cancer.org/cancer/pqeks-ussfzw-xdwjod/qudmxrjfl-tiksrfxeb-umbaxmx/ac s-rec ommendations.html.; Rod DK, Charissa VÁZQUEZ, Mary SotoK, Colorectal Cancer Screening: Recommendations for Physicians and Patients from the U.S. Multi-Society Task Force on Colorectal Cancer Screening , Am J Gastroenterology 2017; 112:9474-0488. TEST DESCRIPTION: Composite algorithmic analysis of stool DNA-biomarkers with hemoglobin immunoassay. Quantitative values of individual biomarkers are not [...] screened with both Cologuard and colonoscopy. (Allen Cabral al, N Engl J Med 2014;370(14):5050-2344.) Cologuard may produce a false negative or false positive result (no colorectal cancer or precancerous polyp present at colonoscopy follow up). A negative Cologuard test result does not guarantee the absence of CRC or advanced adenoma (pre-cancer). The current Cologuard screening interval is every 3 years. ([place]izen [place] Cancer Society and U.S. Multi-Society Task Force). Cologuard performance data in a 10,000 patient pivotal study using colonoscopy as the reference method can be accessed at the following location: www.[employer]/results. Additional description of the Cologuard test process, warnings and precautions can be found at www.colScholarship Consultantsrd.com. Stool specimen (specimen) 07/04/2024 8:30 AM EST 07/07/2024 12:40 PM EST us Kathy Cox MD LAB MOLECULAR DIAGNOSTICS O RDERABLES Final Result Performing Organization Address City/[facility] Co de Phone Number [facility] (CLIA #:[id number]) [place] [address], * HIV-1/2 Antigen and Antibodies, Fourth Generation, with Reflexes (04/28/2024 11:56 AM EST) [facility] HIV AB/AG Nonreactive Nonreactive [facility] Comment:HIV-1 p24 Ag and/or HIV-1/HIV-2 Ab not detected.A test result that is nonreactive does not exclude thepossibility of exposure to or infection with HIV-1 and/orHIV-2. Nonreactive results in this assay for individualswith prior exposure to HIV-1 and/or HIV-2 may be due toantigen and antibody levels that are below the limit ofdetection of this assay.The vufind HIV Ag/Ab Combo assay result andsupplemental assay results should be interpreted inconjunction with the patient's clinical presentation,history and other laboratory results. If the results areinconsistent with clinical evidence, additional testing issuggested to confirm the result. Blood Venous blood specimen / Unknown 04/28/2024 11:56 AM EST 04/28/2024 2:23 PM EST us Kathy Cox MD LAB BLOOD ORDERABLES Final Result Performing Organization Address City/[facility]/ZIP Co de Phone Number [facility] [address] [place] [phone] [phone] * HPV mRNA E6/E7 w/Reflex to HPV Genotypes 16, 18/45 (07/26/2022 1:27 PM EST) HPV nRNA E6/E7 Not Detected Not Detected [facility] Comment:Methodology: Transcr iption-Mediated AmplificationThis assay detects E6/E7 viral messenger RNA (mRNA) from 14high-risk HPV types (16,18,31,33,35,39,45,51,52,56,58,59,66,68).Cervical sources are required for HPV testing.If a vaginal source from a patient who has had atotal hysterectomy with removal of cervix wassubmitted, please contact the testing laboratoryfor alternative testing options.For additional information, please refer tohttp://education.[employer]/faq/FLI180e2(This link if provided for information/educational purposes only.)THIS TEST WAS PERFORMED AT:[employer] [place] [address] ([address] [phone] CASTELAN MD HPV mRNA E6/E7 [facility] HPV 16 RNA [facility] HPV 18/45 RNA [facility] 07/26/2022 1:27 PM EST 07/26/2022 5:00 PM EST [facility] External Provider LAB CYT OLOGY ORDERABLES Final Result Performing Organization Address [facility]/ZIP Co de Phone Number [facility] [address] [place] [phone] * Pap Smear (07/26/2022 1:27 PM EST) 07/26/2022 1:27 PM EST 07/26/2022 5:00 PM EST Narrative [facility] - 08/03/2022 4:58 PM EST ----- ------- Name: Guanakito Corcoran Age/Sex: 47/F : 1975 Unit#: [id number] Attend Dr: Jim Smith MD Re07/26/22 Status: DEP REF Location: [facility] Disch: ----- ------- SPEC : [id number] RECD: 07/26/22-1699 STATUS: JENNIFER MCGRATH NUM: [id number] FABIO: 07/26/22-13[address] [facility] DR: Jim Smith MD ENTERED: 07/26/22 SP TYPE: Pap Smr OTHR DR: Kathy Cox MD ORDERED: Pap Smear Interpretation Satisfactory for evaluation. Negative for intraepithelial lesion or malignancy. Atrophic. HPV mRNA E6/E7: NOT DETECTED This assay detects E6/E7 viral messenger RNA (mRNA) from 14 high-risk HPV types (16, 18, 31, 33, 35, 39, 45, 51, 52, 56, 58, 59, 66, 68) HPV testing performed by [employer], [place], [place]. See reference laboratory portion of the EMR for entire report. Clinical Information LMP: Unknown Previous PAP test: Unknown, WNL Material Received ThinPrep-Cervical Copies To: Kathy Cox MD [address] [place], [place] [phone] Jim Smith MD [address] [place], [place] [address] [address] [phone] ----- ------- Signed (signature on file) Rebeca Kim 08/03/22 1658 ----- ------- END OF REPORT [facility] External Provider LAB [facility] MELODY ORDERABLES Final Result Performing Organization Address [facility] de Phone Number [facility] [address] [place] [phone] * HEPATITIS C AB W/REFL TO HCV RNA, QN, PCR (12/27/2021 11:29 AM EDT) HEPATITIS C ANTIBODY NON-REACT ERNIE NON-REACT ERNIE [facility] INDEX 0.04 <1.00 [facility] Comment: HCV antibody was non-reactive. There is no laboratory evidence of HCV infection. In most cases, no further action is required. However, if recent HCV exposure is suspected, a test for HCV RNA (test code 21636) is suggested. For additional information please refer to http://education.[employer]/faq/SOS44k9 (This link is being provided for informational/ educational purposes only.) 12/27/2021 11:2 9 AM EDT Kathy Cox MD HISTORICAL/NON ORDERABLE LA BS Final Result Performing Organization Address [facility] de Phone Number [facility] [address] [place] [address], from Last 3 Months or Most Recently Relevant to Health Maintenance Insurance [facility] 3 Care Teams Filling Separator Relationship Specialty Start Date End Date Kathy Cox MD [address] [place] [phone] PCP - General Internal Medicine 04/02/19
--- OUTSIDE RECORDS SUMMARY | 2025-02-25 14:16 | XMS_ITS | Encounter Summary ---
Author Organization [employer] Address [address] [facility] 7 [place] [address] Care Team Providers Care Hydraulic Jack Operator Name Role Phone Kathy Cox MD Primary Care Provider [phone] Reason for Visit * Reason Onset Date Comments Med Refill 10/19/2024 Encounter Details Date Type Department Care Team (Late st Contact Info) Description 10/19/2024 Refill [facility] [address] [place], [place] [phone] Kathy Cox MD [address] [place] [address] Irritant dermatitis Social History Tobacco Use Types Packs/Day Years [...] Upcoming Encounters Date Type Department Care Team ([facility] Contact Info) Description 04/21/2025 9:45 AM EDT Office Visit [facility] [address] [place] [address] Kathy Cox MD [address] [place] [address] documented as of this encounter Visit Diagnoses Diagnosis Irritant dermatitis Contact dermatitis and other eczema, due to unspecified cause documented in this encounter Additional Health Concerns Assessment Noted Time PHQ-9 Depression Total Score: 17 025 9:47 AM EST documented as of this encounter Care Teams Hydraulic Jack Operator Relationship Specialty Start Date End Date Kathy Cox MD [address] [place] [address] PCP - General Internal Medicine 04/02/19 documented as of this encounter
--- OUTSIDE RECORDS SUMMARY | 2025-02-25 14:16 | XMS_ITS | Encounter Summary ---
Author Organization [employer] Address [address] [place] [address] Care Team Providers Care Motorized Squad Commanding Officer Name Role Phone Kathy Cox MD Primary Care Provider [phone] Encounter Details Date Type Department Care Team ([facility] st Contact Info) Description 04/28/2024 Orders Only [facility] [address], [place] [phone] Kathy Cox MD [address] [place] [address] Social History Tobacco Use Types Packs/Day Years [...] Description 04/21/2025 9:45 AM EDT Office Visit [facility] [address] [place] [address] Kathy Cox MD [address] [place] [address] documented as of this encounter Visit Diagnoses Not on filedocumented in this encounter Additional Health Concerns Assessment Noted Time PHQ-9 Depression Total Score: 4 10/10/19 23 10:50 AM EDT documented as of this encounter Care Teams Motorized Squad Commanding Officer Relationship Specialty Start Date End Date Kathy Cox MD [address] [place] [address] PCP - General Internal Medicine 04/02/19 documented as of this encounter
--- OUTSIDE RECORDS SUMMARY | 2025-02-25 14:17 | XMS_ITS | Encounter Summary ---
Author Organization [employer] Address [address] [facility] [address] [place] [address] Care Team Providers Care In Home Sales Representative Name Role Phone Kathy Cox MD Primary Care Provider [phone] Reason for Visit * Reason Comments Med Refill Encounter Details Date Type Department Care Team ([facility] st Contact Info) Description 06/12/2023 Refill [facility] [address] [place], [place] [phone] Kathy Cox MD [address] [place] [address] Essential (primary) hypertension Social History Tobacco Use Types Packs/Day Years [...] 04/21/2025 9:45 AM EDT Office Visit [facility] [address] [place] [address] Kathy Cox MD [address] [place] [address] documented as of this encounter Visit Diagnoses Diagnosis Essential (primary) hypertension Unspecified essential hypertension documented in this encounter Additional Health Concerns Assessment Noted Time PHQ-9 Depression Total Score: 4 10/10/19 23 10:50 AM EDT documented as of this encounter Care Teams In Home Sales Representative Relationship Specialty Start Date End Date Kathy Cox MD [address] [place] [address] PCP - General Internal Medicine 04/02/19 documented as of this encounter
== END 2025-02-25 13:02 | disposition home or self-care (01) ==
LOC: HO.US 13:01
PROVIDERS: PCP Internal Medicine; Visit Provider Obstetrics & Gynecology
DX: D25.9 Leiomyoma of uterus, unspecified (principal)
CPT/HCPCS: 76830; 76856

== ENCOUNTER → 2025-02-25 13:02 | Outpatient (BNV) | payer OTHER, SELFPAY | PROVIDERS: PCP Internal Medicine; Visit Provider Radiology Diagnostic Radiology | DX: D25.9 Leiomyoma of uterus, unspecified (principal) | CPT/HCPCS: 76830; 76856 ==

== ENCOUNTER 2025-03-23 13:10 | Outpatient (AMB) | payer OTHER, SELFPAY ==
--- NOTE | 2025-03-23 13:20 | A.OFFVIS_ITS ---
Intake Visit Reasons: US follow up Allergies aspirin Allergy (Unknown, Uncoded 05/25/24 15:34) stomach upset HPI Comments Details: The patient scheduled a telehealth visit for ultrasound follow-up regarding myoma. Doing well with no complaints no pelvic pressure or pain or abnormal vaginal bleeding. Recent pelvic ultrasound showed the following: Uterus: The uterus is anteversion flexion and measures 7 x 4 x 4 cm. Volume: 64 cc. The double wall endometrial thickness is 3 mm. Heterogeneous parenchyma. There is a 4.5 cm slightly hyperechoic nodular lesion, fundus of the uterus. There is a 2.6 cm heterogeneous isoechoic lesion at the left side of the fundus near the left cornue. There is a 1.2 cm heterogeneous hypoechoic lesion in the anterior body of the uterus. Adnexa: The ovaries are not identified.. No free fluid in cul-de-sac. US/US pelvic and transvaginal IMPRESSION: Leiomyomata uterine slightly larger since prior exam. The largest measures 4.5 cm and previously 3.7 cm The ovaries are not identified. No free fluid in the cul-de-sac.. 08/15/2023 uterine myoma measured following by ultrasound: A 4.0 x 3.8 x 3.7 cm fibroid previously measured 4.4 x 4.9 x 3.8 cm. A 7.1 x 5.5 x 5.6 cm fibroid previously measured 5.8 x 4.2 x 4.3 cm. [facility] Medical History Postoperative hypothyroidism Thyroid disease Hyperparathyroidism Vitamin D deficiency Dysphagia HTN (hypertension) Subclinical hyperthyroidism Multinodular thyroid Surgical History No pertinent past surgical history Family History Father Heart disease Mother Thyroid disease Social History Household Members: Children Housing: House Do you presently have visiting nurse or other home services: No Alcohol intake: never Patient Tobacco Use Status: Never used Tobacco Female Reproductive History Menstrual Age of Menarche: 11 Review of Systems Const All systems reviewed & are unremarkable except as noted in HPI and below Reports as per HPI and Reports no additional complaints GI Reports no additional complaints Reports no additional complaints Telehealth Telehealth Telehealth Platform: [employer] Location of provider rendering services: practice address Location of patient: address on file Patient Identification confirmed using: Name, : Yes Telehealth method: video Patient verbally consented to treatment: Yes Patient verbally consented to billing insurance company: Yes Patient informed of any privacy concerns related to visit: Yes Minutes spent on Phone/Video with Pt.: 2 Assessment & Plan Assessment & Plan (1) Uterine myoma: Code(s): D25.9 - Leiomyoma of uterus, unspecified Category: Medical Plan: Discussed with the patient the findings on pelvic ultrasound & the risk of myosarcoma; in addition reviewed with the patient that malignancy and pre malignancy cannot be ruled out without hysterectomy for pathological evaluation ; furthermore, explained to the patient the limitation of pelvic ultrasound and endometrial biopsy in the setting. Discussed with the patient the options of treatment including expectant management versus hysterectomy; the pros and cons, risks benefits of each approach were discussed with the patient including the fact that in cases of myosarcoma, surgical treatment can lead to early diagnosis and positively affects the prognosis; after further discussion, the patient decided to proceed with expectant management. Will repeat pelvic ultrasound periodically. Instructions given to patient to call in case any of the following occurs: pressure symptoms, abnormal uterine bleeding, pelvic pain; and to schedule a12- months pelvic ultrasound (order placed) and a follow-up appointment . All questions answered, the patient verbalized understanding and agreed with the plan . I spent a total of 20 minutes reviewing the chart, talking to the patient via video and documenting in the medical record. Orders: Orders US pelvic and transvaginal 1 Year D25.9 - Leiomyoma of uterus, unspecified Coding Level of Care Code Tele Est Pt Level 3 (42177) Diagnoses Uterine myoma D25.9
--- OUTSIDE RECORDS SUMMARY | 2025-03-23 14:23 | XMS_ITS | Clinical Summary ---
Author Organization [employer] Address [address] [facility] 7t [place] [address] Care Team Providers Care Checkout Supervisor Name Role Phone Kathy oCx MD Primary Care Provider [phone] Allergies Active Allergy Reactions Criticality Noted Date Comments Aspirin 04/02/2019 Other reaction(s): Abdominal discomfort Medications * This document contains information received from the source organization and may not represent a complete record from that organization. fexofenadine (Mary) 180 MG tablet Take 1 tablet by mouth 1 (one) time each day. Take 1 tablet by oral route every day 2 Active fluticasone (Flonase) 50 MCG/ACT nasal spray Administer 1 spray into each nostril 1 (one) time each day. 1-2 spray by intranasal route every day in each nostril as needed for allergies. 2 Active ketotifen (Zaditor) 0.025 % ophthalmic solutionIndication s:Allergic conjunctivitis of both eyes Administer 1 drop into both eyes 2 times daily. 10 mL 3 Active Blood Pressure kitIndications:Diane chidi hypertension To check the BP daily 1 kit 3 Active PARoxetine (Paxil) 10 MG tabletIndications: Anxiety Take 1 tablet (10 mg) by mouth in the morning. 30 tablet 11 4 025 Active topiramate (Topamax) 25 MG tabletIndications: Frontal headache TAKE ONE TABLET BY MOUTH EVERY MORNING 30 tablet 11 4 Active atenolol (Tenormin) 25 MG tablet TAKE ONE TABLET BY MOUTH EVERY MORNING 90 tablet 1 5 Active famotidine (Pepcid) 20 MG tabletIndications: Gastro-esophageal reflux disease without esophagitis TAKE ONE TABLET BY MOUTH AT BEDTIME 90 tablet 1 5 Active triamcinolone (Kenalog) 0.1 % ointmentIndication s:Irritant dermatitis APPLY A THIN LAYER TOPICALLY TWICE A DAY TO THE AFFECTED AREA(S) 30 g 5 Active Diclofenac Sodium 1 % gelIndications:Chr onic left-sided low back pain without sciatica,Hyperchol esterolemia To apply to the affected area 3 times a day 100 g 5 Active methocarbamol (Robaxin) 750 MG tabletIndications: Chronic left-sided low back pain without sciatica Take 1 tablet (750 mg) by mouth 4 times daily for 10 days. 40 tablet 5 Active losartan-hydroCHLO ROthiazide (Hyzaar) 100-25 MG tabletIndications: Primary hypertension Take 1 tablet by mouth Once per day. 30 tablet 11 5 026 Active levothyroxine (Synthroid, Levoxyl) 125 MCG tabletIndications: Acquired hypothyroidism Take 1 tablet (125 mcg) by mouth Once per day. 30 tablet 3 5 Active Active Problems Problem Noted Date Diagnosed Date Hypercholesterolemia 11/25/2024 Persistent depressive disorder 06/26/2024 Assessment & Plan (06/29/2024 10:04 AM EST): During IBH Consult Guanakito presenting with depressed mood, Tearful, crying spells [...] using open-ended questions. Guanakito was self-referred to [facility]; intake completed. Pt will be also referred to psychopharmacology with Estevan Castro clinician will provide additional support as needed. Acquired hypothyroidism 10/09/2022 Hyperparathyroidism 10/09/2022 Hypertensive disorder 05/14/2022 Obesity 05/14/2022 Photosensitivity 05/14/2022 Depression 06/14/2014 Encounters Date Type Department Care Team Description 02/25/2025 Orders Only [facility] External Provider, [facility] 02/18/2025 3:15 PM EDT Office Visit [facility] [address] [place] [address] Kathy Cox MD Primary hypertension (Primary Dx); Acquired hypothyroidism; Hypercholesterolemia; Anxiety 02/18/2025 Travel 02/17/2025 Travel 01/25/2025 Refill [facility] [address] [place] [address] Kathy Cox MD from Last 3 Months [...] Upcoming Encounters Date Type Department Care Team ([facility] st Contact Info) Description 04/21/2025 9:45 AM EDT Office Visit [facility] [address] [place] [address] Kathy Cox MD [address] [place] [address] Health Maintenance Due Date Last Done Comments CT Colonography 1975 Colonoscopy 1975 FIT 1975 Sigmoidoscopy 1975 Family Planning (PISQ) 1989 Zoster Vaccines (1 of 2) 02/02/2024 Mammogram 08/22/2024 08/22/2022 Depression Monitoring 12/27/2024 06/29/2024, 025 COVID-19 Vaccine ( season) 2025 04/03/2021, 03/06/2021 Influenza Vaccine (#1) 2025 , 05/14/2023, 05/03/2014, Additional history exists FOBT 07/04/2025 07/04/2024 Pap Smear 07/26/2025 07/26/2022, 12/26/2021 SDOH Screening 11/11/2025 11/11/2024 Tobacco Screening 11/25/2025 11/25/2024 Disability Screening 02/17/2026 02/17/2025 Alcohol/Substance Use Screening 02/18/2026 02/18/2025 Colorectal Cancer Screening 07/04/2027 FIT DNA/Cologuard 07/04/2027 07/04/2024 Cervical Cancer Screening 07/26/2027 HPV/Cotest 07/26/2027 07/26/2022, 12/26/2021 Lipid Panel 11/25/2029 11/25/2024, 11/10/2023, 12/18/2022, Additional history exists DTaP/Tdap/Td Vaccines (4 [...] Procedure Name Priority Date/Time Associated Diagnosis Comments US PELVIS TRANSVAGINAL Routine 02/25/2025 1:32 PM EDT LIPID PANEL, STANDARD Routine 11/25/2024 11:15 AM [...] Recently Relevant to Health Maintenance Results * US Pelvis Transvaginal (02/25/2025 1:32 PM EDT) Anatomical Region Laterality Modality Pelvis Ultrasound 02/25/2025 1:32 PM EDT Narrative 02/25/2025 2:35 PM EDT [place] [address] Ultrasound Report Signed Patient: Guanakito Corcoran MR#: [id number] : 1975 Acct:[id number] Age/Sex: 50 / F ADM Date: 02/25/25 Loc: .[place] Attending Dr: Jim Smith MD Ordering Physician: Jim Smith MD Date of Service: 02/25/25 Procedure(s): US pelvic and transvaginal Accession Number(s): [id number] cc: Kathy Cox MD; Jim Smith MD Reason for Exam: D25.9 - Leiomyoma of uterus, unspecified EXAMINATION: US PELVIS CLINICAL INFORMATION: Leiomyoma uterus. COMPARISON: February 13, 2024. TECHNIQUE: Ultrasound of the pelvis is performed using both transabdominal and transvaginal transducers along with Doppler. Transvaginal imaging is performed due to inadequate visualization transabdominally. FINDINGS: Uterus: The uterus is anteversion flexion and measures 7 x 4 x 4 cm. Volume: 64 cc. The double wall endometrial thickness is 3 mm. Heterogeneous parenchyma. There is a 4.5 cm slightly hyperechoic nodular lesion, fundus of the uterus. There is a 2.6 cm heterogeneous isoechoic lesion at the left side of the fundus near the left cornue. There is a 1.2 cm heterogeneous hypoechoic lesion in the anterior body of the uterus. Adnexa: The ovaries are not identified.. No free fluid in cul-de-sac. US/US pelvic and transvaginal IMPRESSION: Leiomyomata uterine slightly larger since prior exam. The largest measures 4.5 cm and previously 3.7 cm The ovaries are not identified. No free fluid in the cul-de-sac.. Electronically signed by: Yfn Sanchez MD 02/25/2025 02:32 PM EDT RP Dictated By: Yfn Renteria MD Signed By: <Electronically signed by Yfn Morejon MD in OV> 02/25/25 1432 DD/ 1332 TD/TT: 02/25/25 1346 Bingo Floater: Procedure Note Donotuseinterpreter, Image - 02/25/[address] [address] Ultrasound Report Signed Patient: Inder Corcoran#: [id number] : 1975Acct:[id number] Age/Sex: 50 / FADM Date: 02/25/25 Loc: .[place] Attending Dr: Jim Smith MD Ordering Physician: Jim Smith MD Date of Service: 02/25/25 Procedure(s): US pelvic and transvaginal Accession Number(s): [id number] cc: Kathy Cox MD; Jim Smith MD Reason for Exam: D25.9 - Leiomyoma of uterus, unspecified EXAMINATION: US PELVIS CLINICAL INFORMATION: Leiomyoma uterus. COMPARISON: February 13, 2024. TECHNIQUE: Ultrasound of the pelvis is performed using both transabdominal and transvaginal transducers along with Doppler. Transvaginal imaging is performed due to inadequate visualization transabdominally. FINDINGS: Uterus: The uterus is anteversion flexion and measures 7 x 4 x 4 cm. Volume: 64 cc. The double wall endometrial thickness is 3 mm. Heterogeneous parenchyma. There is a 4.5 cm slightly hyperechoic nodular lesion, fundus of the uterus. There is a 2.6 cm heterogeneous isoechoic lesion at the left side of the fundus near the left cornue. There is a 1.2 cm heterogeneous hypoechoic lesion in the anterior body of the uterus. Adnexa: The ovaries are not identified.. No free fluid in cul-de-sac. US/US pelvic and transvaginal IMPRESSION: Leiomyomata uterine slightly larger since prior exam. The largest measures 4.5 cm and previously 3.7 cm The ovaries are not identified. No free fluid in the cul-de-sac.. Electronically signed by: Yfn Sanchez MD 02/25/2025 02:32 PM EDT RP Dictated By: Yfn Renteria MD Signed By: <Electronically signed by Yfn Morejon MDin OV> 02/25/25 1432 DD/ 1332 TD/TT: 02/25/25 1346 Bingo Floater: [facility] External Provider IMG US PROCEDURES Final Result * (ABNORMAL) Lipid Panel, Standard (11/25/2024 11:15 AM EDT) Triglycerides 157(H) <150 mg/dL [facility] Comment:Desirable Triglyceri de: less than 150 mg/dLBorderline High Triglyceride 150-199 mg/dLHigh Triglyceride: 200-499 mg/dLVery High Triglyceride: greater than or equal to 5OO mg/dL Cholesterol 243(H) <200 mg/dL [facility] Comment:Desirable Cholestero l: less than 200 mg/dLBorderline High Cholesterol: 200-239 mg/dLHigh Cholesterol: greater than 239 mg/dL LDL Cholesterol Calculated 166(H) <100 mg/dL [facility] Comment:Desirable LDL: less than 100 mg/dLNear Optimal/Above Optimal LDL: 110- 129 mg/dLBorderline High LDL: 130-159 mg/dLHigh LDL: 160-189 mg/dLVery High LDL: greater than or equal to 190 mg/dL HDL Cholesterol 46 >40 mg/dL [facility] Comment:Desirable HDL: great er than 40 mg/dL Note: This HDL assay may give artificially low results in patients with liver disease. Blood Venous blood specimen / Unknown 11/25/2024 11:15 AM EDT 11/25/2024 2:15 PM EDT Kathy Cox MD LAB BLOOD ORDERABLES Final Result [facility] [address] [place] [phone] * Cologuard?? colon cancer screening (07/04/2024 8:30 AM EST) Pathologist [facility] Cologuard Result Negative Negative 07/13/19 10:02 AM EST [facility] ([place] #:[id number]) Comment: NEGATIVE TEST RESULT. A negative Cologuard [...] Chauhan et al, N Engl J Med 2014;370(14):1183-1683) The normal value (reference range) for this assay is negative. COLOGUARD RE-SCREENING RECOMMENDATION: Periodic colorectal cancer screening is an important part of preventive healthcare for asymptomatic individuals at average risk for colorectal cancer. Following a negative Cologuard result, the [place] Cancer Society and U.S. Multi-Society Task Force screening guidelines recommend a Cologuard re-screening interval of 3 years. References: [place] [employer] Guideline for Colorectal Cancer Screening: https://www.cancer.org/cancer/hbzed-zgwcqx-qiggcu/xodexmepk-urxznwize-dadhpuk/ac s-rec ommendations.html.; Rod RASMUSSEN, Charissa VÁZQUEZ, Mary SotoK, Colorectal Cancer Screening: Recommendations for Physicians and Patients from the U.S. Multi-Society Task Force on Colorectal Cancer Screening , Am J Gastroenterology 2017; 112:4657-5454. TEST DESCRIPTION: Composite algorithmic analysis of stool [...] Chauhan et al, N Engl J Med 2014;370(14):2253-2539.) Cologuard may produce a false negative or false positive result (no colorectal cancer or precancerous polyp present at colonoscopy follow up). A negative Cologuard test result does not guarantee the absence of CRC or advanced adenoma (pre-cancer). The current Cologuard screening interval is every 3 years. ([place] Cancer Society and U.S. Multi-Society Task Force). Cologuard performance data in a 10,000 patient pivotal study using colonoscopy as the reference method can be accessed at the following location: www.[employer]/results. Additional description of the Cologuard test process, warnings and precautions can be found at www.cologuard.com. Stool specimen (specimen) 07/04/2024 8:30 AM EST 07/07/2024 12:40 PM EST us Kathy Cox MD LAB MOLECULAR DIAGNOSTICS O RDERABLES Final Result [facility] (CLIA #:[id number]) [place] [address] [address], * HIV-1/2 Antigen and Antibodies, Fourth Generation, with Reflexes (04/28/2024 11:56 AM EST) HIV AB/AG Nonreactive Nonreactive [facility] Comment:HIV-1 p24 Ag and/or HIV-1/HIV-2 Ab not detected.A test result that is nonreactive does not exclude thepossibility of exposure to or infection with HIV-1 and/orHIV-2. Nonreactive results in this assay for individualswith prior exposure to HIV-1 and/or HIV-2 may be due toantigen and antibody levels that are below the limit ofdetection of this assay.The [employer] HIV Ag/Ab Combo assay result andsupplemental assay results should be interpreted inconjunction with the patient's clinical presentation,history and other laboratory results. If the results areinconsistent with clinical evidence, additional testing issuggested to confirm the result. Blood Venous blood specimen / Unknown 04/28/2024 11:56 AM EST 04/28/2024 2:23 PM EST us Kathy Cox MD LAB BLOOD ORDERABLES Final Result [facility] [address] [place] [phone] * HPV mRNA E6/E7 w/Reflex to HPV Genotypes 16, 18/45 (07/26/2022 1:27 PM EST) HPV nRNA E6/E7 Not Detected Not Detected [facility] Comment:Methodology: Transcr iption-Mediated AmplificationThis assay detects E6/E7 viral messenger RNA (mRNA) from 14high-risk HPV types (16,18,31,33,35,39,45,51,52,56,58,59,66,68).Cervical sources are required for HPV testing.If a vaginal source from a patient who has had atotal hysterectomy with removal of cervix wassubmitted, please contact the testing laboratoryfor alternative testing options.For additional information, please refer tohttp://education.[employer]/faq/BRS563r7(This link if provided for information/educational purposes only.)THIS TEST WAS PERFORMED AT:[address] [place] [address] ([facility])[place] [address]EPRDOJOSE CASTELAN MD HPV mRNA E6/E7 TNP [facility] HPV 16 RNA TNP [facility] HPV 18/45 RNA TNP [facility] 07/26/2022 1:27 PM EST 07/26/2022 5:00 PM EST us [facility] External Provider LAB CYT OLOGY ORDERABLES Final Result [facility] [address] [place] [phone] * Pap Smear (07/26/2022 1:27 PM EST) 07/26/2022 1:27 PM EST 07/26/2022 5:00 PM EST Narrative [facility] - 08/03/2022 4:58 PM EST ----- ------- Name: Guanakito Corcoran Age/Sex: 47/F : 1975 Unit#: [id number] Attend Dr: Jim Smith MD Re07/26/22 Status: DEP REF Location: HO.LNP Disch: ----- ------- SPEC : [id number] RECD: 07/26/22-1699 STATUS: JENNIFER MCGRATH NUM: [id number] FABIO: 07/26/22-[address] [facility] [address]: Jim Smith MD ENTERED: [...] 59, 66, 68) HPV testing performed by [facility], [place], [place]. See reference laboratory portion of the EMR for entire report. Clinical Information LMP: Unknown Previous PAP test: Unknown, WNL Material Received ThinPrep-Cervical Copies To: Kathy Cox MD [address] [place] [address] [phone] Jim Smith MD [address] [place] [address] [address] ----- ------- Signed (signature on file) Rebeca Juárez Judy 08/03/22 1658 ----- ------- END OF REPORT [facility] External Provider LAB CYT OLOGY ORDERABLES Final Result [facility] [address] [place] [phone] * HEPATITIS C AB W/REFL TO HCV RNA, QN, PCR (12/27/2021 11:29 AM EDT) HEPATITIS C ANTIBODY NON-REACT ERNIE NON-REACT ERNIE [facility] INDEX 0.04 <1.00 [facility] Comment: HCV antibody was non-reactive. There is no laboratory evidence of HCV infection. In most cases, no further action is required. However, if recent HCV exposure is suspected, a test for HCV RNA (test code 90100) is suggested. For additional information please refer to http://education.[employer]/faq/KAX64r0 (This link is being provided for informational/ educational purposes only.) 12/27/2021 11:2 9 AM EDT us Kathy Cox MD HISTORICAL/NON ORDERABLE ALEXANDRA HOLMAN Final Result [facility] [address] from Last 3 Months or Most Recently Relevant to Health Maintenance Insurance [address] [address] [place] [address] 3 Care Teams Checkout Supervisor Relationship Specialty Start Date End Date Kathy Cox MD [address] [place] [phone] PCP - General Internal Medicine 04/02/19
--- OUTSIDE RECORDS SUMMARY | 2025-03-23 14:23 | XMS_ITS | Encounter Summary ---
Author Organization [employer] Address [address] [facility] 7 [place] [address] Care Team Providers Care Electric Range Assembler Name Role Phone Kathy Cox MD Primary Care Provider [phone] Reason for Visit * Reason Onset Date Comments Med Refill 10/19/2024 Encounter Details Date Type Department Care Team (Late st Contact Info) Description 10/19/[address] [facility] [address] [place], [place] [phone] Kathy Cox MD [address] [place] [address] Irritant dermatitis Social History Tobacco Use Types [...] Upcoming Encounters Date Type Department Care Team ([facility] Contact Info) Description 04/21/2025 9:45 AM EDT Office Visit [facility] [address] [place] [address] Kathy Cox MD [address] [place] [address] documented as of this encounter Visit Diagnoses Diagnosis Irritant dermatitis Contact dermatitis and other eczema, due to unspecified cause documented in this encounter Additional Health Concerns Assessment Noted Time PHQ-9 Depression Total Score: 17 025 9:47 AM EST documented as of this encounter Care Teams Electric Range Assembler Relationship Specialty Start Date End Date Kathy Cox MD [address] [place] [address] PCP - General Internal Medicine 04/02/19 documented as of this encounter
--- OUTSIDE RECORDS SUMMARY | 2025-03-23 14:23 | XMS_ITS | Encounter Summary ---
Author Organization [employer] Address 75 [facility] 7 [place] [address] Care Team Providers Care Abstract Checker Name Role Phone Kathy Cox MD Primary Care Provider [phone] Reason for Visit * Reason Comments Med Refill Encounter Details Date Type Department Care Team ([facility] st Contact Info) Description 12/25/2023 Refill [facility] [address] [place], [place] [phone] Kathy Cox MD [address] [place] [address] Social History Tobacco Use Types Packs/Day Years [...] Upcoming Encounters Date Type Department Care Team ([facility] st Contact Info) Description 04/21/2025 9:45 AM EDT Office Visit [facility] [address] [place] [address] Kahty Cox MD [address] [place] [address] documented as of this encounter Visit Diagnoses Not on filedocumented in this encounter Additional Health Concerns Assessment Noted Time PHQ-9 Depression Total Score: 4 10/10/19 23 10:50 AM EDT documented as of this encounter Care Teams Abstract Checker Relationship Specialty Start Date End Date Kathy Cox MD [address] [place] [address] PCP - General Internal Medicine 04/02/19 documented as of this encounter
--- OUTSIDE RECORDS SUMMARY | 2025-03-23 14:23 | XMS_ITS | Encounter Summary ---
Author Organization [employer] Address [address] [facility] 7 [place] [address] Care Team Providers Care Osteopathy Doctor Name Role Phone Kathy Cox MD Primary Care Provider [phone] Encounter Details Date Type Department Care Team ([facility] st Contact Info) Description 04/28/2024 Orders Only [facility] [address] [place], [place] [phone] Kathy Cox MD [address] [place] [address] Social History Tobacco Use Types Packs/Day Years [...] 04/21/2025 9:45 AM EDT Office Visit [facility] [address] [place] [address] Kathy Cox MD [address] [place] [address] documented as of this encounter Visit Diagnoses Not on filedocumented in this encounter Additional Health Concerns Assessment Noted Time PHQ-9 Depression Total Score: 4 10/10/19 23 10:50 AM EDT documented as of this encounter Care Teams Osteopathy Doctor Relationship Specialty Start Date End Date Kathy Cox MD [address] [place] [address] PCP - General Internal Medicine 04/02/19 documented as of this encounter
--- OUTSIDE RECORDS SUMMARY | 2025-03-23 14:24 | XMS_ITS | Clinical Summary ---
Author Organization [facility] Address [address] [place] [address] Care Team Providers Care Trial Paralegal Name Role Phone Surinder Cadet NP Primary Care Provider [phone] Source Comments PLEASE NOTE, if this patient is a minor, it may be UNLAWFUL to discuss sensitive information that is contained in these records (such as FAMILY PLANNING, MENTAL HEALTH or SUBSTANCE ABUSE) with the minor patient's parent or other person without the patient's specific authorization.[facility] Allergies No known active allergies Medications Capsicum Oleoresin-Menth- Camph (TIGER BALM, WITH CAPSICUM,) 16-24-80 mg ptmdIndications: Left knee pain Apply 1 Patch topically once daily. 30 Patch 2 4 Active ketorolac (ACULAR) 0.5 % ophthalmic solutionIndicati ons:Allergic conjunctivitis, bilateral Place 1 Drop into both eyes 4 (four) times daily. Do not use while wearing contact lenses. 5 mL 1 6 Active multivitamin tabletIndication s:Preventive measure Take 1 Tab by mouth once daily. 30 Tab 11 6 Active fluticasone (FLONASE) 50 mcg/actuation nasal sprayIndications :Allergic sinusitis Place 1 [place] into the nostril(s) once daily. 16 g 0 6 Active diphenhydrAMINE (BENADRYL) 25 mg tabletIndication s:Chronic seasonal allergic rhinitis, unspecified trigger Take 2 Tabs by mouth nightly at bedtime as needed for allergies 60 Tab 1 7 Active ibuprofen (ADVIL,MOTRIN) 400 mg tabletIndication s:Varicose veins of both lower extremities Take 1 Tab by mouth 4 (four) times daily as needed for pain 60 Tab 3 7 Active Active Problems Problem Noted Date Diagnosed Date Prediabetes 02/13/2017 Allergy 02/12/2017 Positive skin test 03/01/2016 Overview (11/11/2017): - [facility] 2017 CXR negative - [facility] 2015 CXR negative Varicose veins of both lower extremities 016 Overview (04/18/2016): [facility] 2015, venous insufficiency, stockings Essential hypertension 10/21/2015 Depression 06/14/2014 Subclinical hyperthyroidism 05/04/2014 Overview (09/21/2015): Endo referral Obesity (BMI 35.0-39.9 without comorbidity) 04/24 Irregular menses 04/23/2014 Overview (04/23/2014): Seeing [employer] MEMBER Immunizations Immunization Administration Dates Next Due Hep B, Adult/Adol (PULUDFP-H-QZMJB/RECOMBIVAX-ADULT) 09/21/2016,04/12/2016,03/09/2016,2015(Deferred: Not Forecasted at Time Visit) INFLUENZA, SEASONAL, INJECTABLE 05/03/2014,09/02 MMR (MMR II/Priorix) 04/12/2016,09/03/2011 TDAP 09/03/2011 Td (adult),2 Lf tetanus toxo id (TDVAX), preservative free 09/03/2011 Varicella (Varivax), Live Vaccine 09/03/2011 Social History Tobacco Use Types Packs/Day Years Used Date Smoking Tobacco: Never Smokeless Tobacco: Never Alcohol Use Standard Drinks/Week Comments No 0 (1 standard drink = 0.6 oz pur e alcohol) Social Connections Answer Date Recorded Social Connections and Isolation 0 02/14/2019 Financial Resource Strain Answer Date R ecorded Financial Resource Strain 0 2018 Stress Answer Date Recorded Stress 0 02/14/2019 Physical Activity Answer Date Recorded Physical Activity 0 02/14/2019 Food Insecurity Answer Date Recorded Food 0 02/14/2019 Transportation Needs Answer Date Record ed Transportation 0 02/14/2019 Housing Stability Answer Date Recorded Housing 0 02/14/2019 Safety and Environment Answer Date Ishmael rded Safety 0 02/14/2019 Utilities Answer Date Recorded Utilities 0 02/14/2019 Employment Answer Date Recorded Employment 0 02/14/2019 Comments No Sex and Gender Information Value Date Recorded Sex Assigned at Not on file Legal Sex Female 8:29 AM PDT Gender Identity Not on file Sexual Orientation Not on file Last Filed Vital Signs Vital Sign Reading Time Taken Comments Blood Pressure 110/76 02/12/2017 9:13 AM EDT Pulse 78 02/12/2017 9:13 AM EDT Temperature 36.7 C (98.1 F) 02/12/2017 9:13 AM EDT Respiratory Rate 18 02/12/2017 9:13 AM EDT Oxygen Saturation - - Inhaled Oxygen Concentration - - Weight 93.9 kg (207 lb) 02/12/2017 9:13 AM EDT Height 154.9 cm (5' 1 ) 12/27/2015 9:16 AM EDT Body Mass Index 39.11 12/27/2015 9:16 AM EDT Plan of Treatment Not on file Insurance [employer] Member Subscriber Plan / Payer (Ef fective 2016-Present) Name:Nilo Douglasorlando Relation to Subscriber:Self Name:Nilo Douglasorlando Payer ID:[id number] Type:Indemnity Address: [facility] [address] [place] [address] [facility] SAFETY NET DENTAL MEDICAID DENTAL Care Teams Trial Paralegal Relationship Specialty Start Date End Date Surinder Cadet NP [address] [place] [address] PCP - General 05/01/18
--- OUTSIDE RECORDS SUMMARY | 2025-03-23 14:24 | XMS_ITS | Encounter Summary ---
Author Organization [employer] Address [address] [facility] 7 [place] [address] Care Team Providers Care Tanning Drum Operator Name Role Phone Kathy Cox MD Primary Care Provider [phone] Reason for Visit * Reason Comments Med Refill Encounter Details Date Type Department Care Team ([facility] st Contact Info) Description 06/12/2023 Refill [facility] CHC MED & PEDS [address] [place], [place] [phone] Kathy Cox MD [address] [place] [address] Essential (primary) hypertension Social History Tobacco Use [...] Description 04/21/2025 9:45 AM EDT Office Visit [facility] MED & PEDS [address] [place] [address] Kathy Cox MD [address] [place] [address] documented as of this encounter Visit Diagnoses Diagnosis Essential (primary) hypertension Unspecified essential hypertension documented in this encounter Additional Health Concerns Assessment Noted Time PHQ-9 Depression Total Score: 4 10/10/19 23 10:50 AM EDT documented as of this encounter Care Teams Tanning Drum Operator Relationship Specialty Start Date End Date Kathy Cox MD [address] [place] [address] PCP - General Internal Medicine 04/02/19 documented as of this encounter
== END 2025-03-23 13:32 | disposition home or self-care (01) ==
LOC: HO.HWS 13:10
PROVIDERS: PCP Internal Medicine; Visit Provider Obstetrics & Gynecology
DX: D25.9 Leiomyoma of uterus, unspecified (principal)
CPT/HCPCS: 99213

== ENCOUNTER 2025-03-24 10:30 | Outpatient (REF) | payer OTHER, SELFPAY ==
--- OUTSIDE RECORDS SUMMARY | 2025-03-24 12:06 | XMS_ITS | Clinical Summary ---
Author Organization [employer] Address [address] [facility] 7t [place] [address] Care Team Providers Care Night Custodian Name Role Phone Kathy Cox MD Primary Care Provider [phone] Allergies Active Allergy Reactions Criticality Noted Date [...] using open-ended questions. Guanakito was self-referred to [facility]; intake completed. Pt will be also referred to psychopharmacology with Estevan Castro clinician will provide additional support as needed. Acquired hypothyroidism 10/09/2022 Hyperparathyroidism 10/09/2022 Hypertensive disorder 05/14/2022 Obesity 05/14/2022 Photosensitivity 05/14/2022 Depression 06/14/2014 Encounters Date Type Department Care Team Description 02/25/2025 Orders Only [facility] External Provider, [facility] 02/18/2025 3:15 PM EDT Office Visit [facility] MED & PEDS [address] [place] [address] Kathy Cox MD Primary hypertension (Primary Dx); Acquired hypothyroidism; Hypercholesterolemia; Anxiety 02/18/2025 Travel 02/17/2025 Travel 01/25/2025 Refill [facility] MED & PEDS [address] [place] [address] Kathy Cox MD from Last 3 Months [...] Upcoming Encounters Date Type Department Care Team ([facility] st Contact Info) Description 04/21/2025 9:45 AM EDT Office Visit [facility] MED [facility] PEDS [address] [place] [address] Kathy Cox MD [address] [place] [address] Health Maintenance Due Date Last Done Comments [...] PM EDT Narrative 02/25/2025 2:35 PM EDT [place] [address] Ultrasound Report Signed Patient: Guanakito Corcoran MR#: [id number] : 1975 Acct:[id number] Age/Sex: 50 / F ADM Date: 02/25/25 Loc: .US Attending Dr: Jim Smith MD Ordering Physician: Jim Smith MD Date of Service: 02/25/25 Procedure(s): US pelvic and transvaginal Accession Number(s): [id number] cc: Kathy Cox MD; Jim Smith MD [...] 02/25/25 1432 DD/ 1332 TD/TT: 02/25/25 1346 Biomedical Equipment Tech: Procedure Note Donotuseinterpreter, Image - 02/25/[address] [address] Ultrasound Report Signed Patient: Inder Corcoran#: [id number] : 1975Acct:[id number] Age/Sex: 50 / FADM Date: 02/25/25 Loc: .[place] Attending Dr: Jim Smith MD Ordering Physician: Jmi Smith MD Date of Service: 02/25/25 Procedure(s): US pelvic and transvaginal Accession Number(s): [id number] cc: Kathy Cox MD; Jim Smith MD [...] 02/25/25 1432 DD/ 1332 TD/TT: 02/25/25 1346 Biomedical Equipment Tech: [facility] External Provider IMG US PROCEDURES Final Result * (ABNORMAL) Lipid Panel, Standard (11/25/2024 11:15 AM EDT) Triglycerides 157(H) <150 mg/dL [facility] Comment:Desirable Triglyceri de: less than 150 mg/dLBorderline High Triglyceride 150-199 mg/dLHigh Triglyceride: 200-499 mg/dLVery High Triglyceride: greater than or equal to 5OO mg/dL Cholesterol 243(H) <200 mg/dL [facility] Comment:Desirable Cholestero l: less than 200 mg/dLBorderline High Cholesterol: 200-239 mg/dLHigh Cholesterol: greater than 239 mg/dL LDL Cholesterol Calculated 166(H) <100 mg/dL [facility] Comment:Desirable LDL: less than 100 mg/dLNear Optimal/Above Optimal LDL: 110- 129 mg/dLBorderline High LDL: 130-159 mg/dLHigh LDL: 160-189 mg/dLVery High LDL: greater than or equal to 190 mg/dL HDL Cholesterol 46 >40 mg/dL [facility] Comment:Desirable HDL: great er than 40 mg/dL Note: This HDL assay may give artificially low results in patients with liver disease. Blood Venous blood specimen / Unknown 11/25/2024 11:15 AM EDT 11/25/2024 2:15 PM EDT Kathy Cox MD LAB BLOOD ORDERABLES Final Result [facility] [address] [place] [phone] * Cologuard?? colon cancer screening (07/04/2024 8:30 AM EST) Pathologist [facility] Cologuard Result Negative Negative 07/13/19 10:02 AM EST [facility] (IA #:[id number]) Comment: NEGATIVE TEST RESULT. A negative Cologuard [...] Chauhan et al, N Engl J Med 2014;370(14):2925-1731) The normal value (reference range) for this assay is negative. COLOGUARD RE-SCREENING RECOMMENDATION: Periodic colorectal cancer screening is an important part of preventive healthcare for asymptomatic individuals at average risk for colorectal cancer. Following a negative Cologuard result, the [place] Cancer Society and U.S. Multi-Society Task Force screening guidelines recommend a Cologuard re-screening interval of 3 years. References: [place] [employer] Guideline for Colorectal Cancer Screening: https://www.cancer.org/cancer/kxjxt-abnaww-kvmojr/nljzvpjmx-imvmbbmzd-rgfpueg/ac s-rec ommendations.html.; Rod RASMUSSEN, Charissa VÁZQUEZ, Mary SotoK, Colorectal Cancer Screening: Recommendations for Physicians and Patients from the U.S. Multi-Society Task Force on Colorectal Cancer Screening , Am J Gastroenterology 2017; 112:2802-6861. TEST DESCRIPTION: Composite algorithmic analysis of stool [...] Chauhan et al, N Engl J Med 2014;370(14):4853-6653.) Cologuard may produce a false negative or false positive result (no colorectal cancer or precancerous polyp present at colonoscopy follow up). A negative Cologuard test result does not guarantee the absence of CRC or advanced adenoma (pre-cancer). The current Cologuard screening interval is every 3 years. ([place] [employer] Society and U.S. Multi-Society Task Force). Cologuard performance data in a 10,000 patient pivotal study using colonoscopy as the reference method can be accessed at the following location: www.[employer]/results. Additional description of the Cologuard test process, warnings and precautions can be found at www.cologuard.com. Stool specimen (specimen) 07/04/2024 8:30 AM EST 07/07/2024 12:40 PM EST us Kathy Cox MD LAB MOLECULAR DIAGNOSTICS O RDERABLES Final Result [facility] (CLIA #:[id number]) [place] [address] [place] [address], * HIV-1/2 Antigen and Antibodies, Fourth Generation, with Reflexes (04/28/2024 11:56 AM EST) HIV AB/AG Nonreactive Nonreactive [facility] Comment:HIV-1 p24 Ag and/or HIV-1/HIV-2 Ab not detected.A test result that is nonreactive does not exclude thepossibility of exposure to or infection with HIV-1 and/orHIV-2. Nonreactive results in this assay for individualswith prior exposure to HIV-1 and/or HIV-2 may be due toantigen and antibody levels that are below the limit ofdetection of this assay.The [employer] HIV Ag/Ab Combo assay result andsupplemental assay results should be interpreted inconjunction with the patient's clinical presentation,history and other laboratory results. If the results areinconsistent with clinical evidence, additional testing issuggested to confirm the result. Blood Venous blood specimen / Unknown 04/28/2024 11:56 AM EST 04/28/2024 2:23 PM EST us Kathy Cox MD LAB BLOOD ORDERABLES Final Result [facility] [address] [place] [phone] * HPV mRNA E6/E7 w/Reflex to HPV Genotypes 16, 18/45 (07/26/2022 1:27 PM EST) HPV nRNA E6/E7 Not Detected Not Detected [facility] Comment:Methodology: Transcr iption-Mediated AmplificationThis assay detects E6/E7 viral messenger RNA (mRNA) from 14high-risk HPV types (16,18,31,33,35,39,45,51,52,56,58,59,66,68).Cervical sources are required for HPV testing.If a vaginal source from a patient who has had atotal hysterectomy with removal of cervix wassubmitted, please contact the testing laboratoryfor alternative testing options.For additional information, please refer tohttp://education.[employer]/faq/SBG791m3(This link if provided for information/educational purposes only.)THIS TEST WAS PERFORMED AT:[facility] [place] [address] ([facility] [address]IJXZSJOSE CASTELAN MD HPV mRNA E6/E7 TNP [facility] HPV 16 RNA TNP [facility] HPV 18/45 RNA TNP [facility] 07/26/2022 1:27 PM EST 07/26/2022 5:00 PM EST us [facility] External Provider LAB CYT OLOGY ORDERABLES Final Result [facility] [address] [place] [phone] * Pap Smear (07/26/2022 1:27 PM EST) 07/26/2022 1:27 PM EST 07/26/2022 5:00 PM EST Narrative [facility] - 08/03/2022 4:58 PM EST ----- ------- Name: Guanakito Corcoran Age/Sex: 47/F : 1975 Unit#: [id number] Attend Dr: Jim Smith MD Re07/26/22 Status: DEP REF Location: HO.LNP Disch: ----- ------- SPEC : [id number] RECD: 07/26/22-1699 STATUS: JENNIFER MCGRATH NUM: [id number] FABIO: 07/26/22-[address] [facility] [address]: Jim Smith MD ENTERED: [...] 59, 66, 68) HPV testing performed by [facility], [place], [place]. See reference laboratory portion of the EMR for entire report. Clinical Information LMP: Unknown Previous PAP test: Unknown, WNL Material Received ThinPrep-Cervical Copies To: Kathy Cox MD [address] [place] [phone] Jim Smith MD [address] [place] [address] [address] ----- ------- Signed (signature on file) Rebeca Juárez Judy 08/03/22 1658 ----- ------- END OF REPORT [facility] External Provider LAB CYT OLOGY ORDERABLES Final Result [facility] [address] [place] [phone] * HEPATITIS C AB W/REFL TO [...] a test for HCV RNA (test code 96195) is suggested. For additional information please refer to http://education.[employer]/faq/TSK43l3 (This link is being provided for informational/ educational purposes only.) 12/27/2021 11:2 9 AM EDT us Kathy Cox MD HISTORICAL/NON ORDERABLE ALEXANDRA HOLMAN Final Result [facility] [address] from Last 3 Months or Most Recently Relevant to Health Maintenance [place] [address] [place] [address] 3 Care Teams Night Custodian Relationship Specialty Start Date End Date Kathy Cox MD [address] [place] [address] PCP - General Internal Medicine 04/02/19
--- OUTSIDE RECORDS SUMMARY | 2025-03-24 12:07 | XMS_ITS | Encounter Summary ---
Author Organization [employer] Address 75 [facility] 7 [place] [address] Care Team Providers Care Fountain Attendant Name Role Phone Kathy Cox MD Primary Care Provider [phone] Encounter Details Date Type Department Care Team ([facility] st Contact Info) Description 04/28/2024 Orders Only [facility] CHC MED & PEDS [address] [place], [place] [phone] Kathy Cox MD [address] [place] [address] Social History Tobacco Use Types Packs/Day Years [...] 9:45 AM EDT Office Visit [facility] MED & PEDS [address] [place] [address] Ktahy Cox MD [address] [place] [address] documented as of this encounter Visit Diagnoses Not on filedocumented in this encounter Additional Health Concerns Assessment Noted Time PHQ-9 Depression Total Score: 4 10/10/19 23 10:50 AM EDT documented as of this encounter Care Teams Fountain Attendant Relationship Specialty Start Date End Date Kathy Cox MD [address] [place] [address] PCP - General Internal Medicine 04/02/19 documented as of this encounter
--- OUTSIDE RECORDS SUMMARY | 2025-03-24 12:07 | XMS_ITS | Encounter Summary ---
Author Organization [employer] Address 75 [facility] 7 [place] [address] Care Team Providers Care Computer Trainer Name Role Phone Kathy Cox MD Primary Care Provider [phone] Reason for Visit * Reason Onset Date Comments Med Refill 10/19/2024 Encounter Details Date Type Department Care Team (Late st Contact Info) Description 10/19/2024 Refill [facility] PEDS [address] [place], [place] [phone] Kathy Cox MD [address] [place] [address] Irritant dermatitis Social History Tobacco Use Types [...] Upcoming Encounters Date Type Department Care Team ([facility] Contact Info) Description 04/21/2025 9:45 AM EDT Office Visit [facility] MED & PEDS [address] [place] [address] Kathy Cox MD [address] [place] [address] documented as of this encounter Visit Diagnoses Diagnosis Irritant dermatitis Contact dermatitis and other eczema, due to unspecified cause documented in this encounter Additional Health Concerns Assessment Noted Time PHQ-9 Depression Total Score: 17 025 9:47 AM EST documented as of this encounter Care Teams Computer Trainer Relationship Specialty Start Date End Date Kathy Cox MD [address] [place] [address] PCP - General Internal Medicine 04/02/19 documented as of this encounter
--- OUTSIDE RECORDS SUMMARY | 2025-03-24 12:07 | XMS_ITS | Encounter Summary ---
Author Organization [employer] Address 75 [facility] 7 [place] [address] Care Team Providers Care Hotel And Dining Room Cashier Name Role Phone Kathy Cox MD Primary Care Provider [phone] Reason for Visit * Reason Comments Med Refill Encounter Details Date Type Department Care Team ([facility] st Contact Info) Description 12/25/2023 Refill [facility] CHC MED & PEDS [address] [place], [place] [phone] Kathy Cox MD [address] [place] [address] Social History Tobacco Use Types Packs/Day Years [...] Upcoming Encounters Date Type Department Care Team ([facility] st Contact Info) Description 04/21/2025 9:45 AM EDT Office Visit [facility] CHC MED & PEDS [address] [place] [address] Kathy Cox MD [address] [place] [address] documented as of this encounter Visit Diagnoses Not on filedocumented in this encounter Additional Health Concerns Assessment Noted Time PHQ-9 Depression Total Score: 4 10/10/19 23 10:50 AM EDT documented as of this encounter Care Teams Hotel And Dining Room Cashier Relationship Specialty Start Date End Date Kathy Cox MD [address] [place] [address] PCP - General Internal Medicine 04/02/19 documented as of this encounter
--- OUTSIDE RECORDS SUMMARY | 2025-03-24 12:07 | XMS_ITS | Clinical Summary ---
Author Organization [facility] Address [address] [place] [address] Care Team Providers Care Peanut Sheller Name Role Phone Surinder Cadet NP Primary Care Provider [phone] Source Comments PLEASE NOTE, if this patient [...] mcg/actuation nasal sprayIndications :Allergic sinusitis Place 1 [place] into the nostril(s) once daily. 16 g [...] 04/24 Irregular menses 04/23/2014 Overview (04/23/2014): Seeing [facility] Immunizations Immunization Administration Dates Next Due Hep B, Adult/Adol (BDTIGZS-N-MHWLQ/RECOMBIVAX-ADULT) 09/21/2016,04/12/2016,03/09/2016,2015(Deferred: Not Forecasted at Time Visit) INFLUENZA, [...] Plan of Treatment Not on file Insurance [employer] Member Subscriber Plan / Payer (Ef fective 2016-Present) Name:Nilo Douglasorlando Relation to Subscriber:Self Name:Nilo Douglasorlando Payer ID:[id number] Type:Indemnity Address: [facility] [address] [place] [address] [facility] SAFETY NET DENTAL MEDICAID DENTAL Care Teams Peanut Sheller Relationship Specialty Start Date End Date Surinder Cadet NP [address] [place] [address] PCP - General 05/01/18
--- OUTSIDE RECORDS SUMMARY | 2025-03-24 12:07 | XMS_ITS | Encounter Summary ---
Author Organization [employer] Address 75 [facility] 7 [place] [address] Care Team Providers Care Float Phlebotomist Name Role Phone Kathy Cox MD Primary Care Provider [phone] Reason for Visit * Reason Comments Med Refill Encounter Details Date Type Department Care Team ([facility] st Contact Info) Description 06/12/[address] [facility] MED & PEDS [address] [place], [place] [phone] Kathy Cox MD [address] [place] [address] Essential (primary) hypertension Social History Tobacco Use [...] [facility] [address] [place] [address] Kathy Cox MD [address] [place] [address] documented as of this encounter Visit Diagnoses Diagnosis Essential (primary) hypertension Unspecified essential hypertension documented in this encounter Additional Health Concerns Assessment Noted Time PHQ-9 Depression Total Score: 4 10/10/19 23 10:50 AM EDT documented as of this encounter Care Teams Float Phlebotomist Relationship Specialty Start Date End Date Kathy Cox MD [address] [place] [address] PCP - General Internal Medicine 04/02/19 documented as of this encounter
[2025-03-24 14:39] LABS: Anion Gap 12 (12-20); Blood Urea Nitrogen 17 mg/dL (9-16); Calcium 8.4 mg/dL (8.4-10.2); Carbon Dioxide 26 mmol/L (22-29); Chloride 107 mmol/L (96-108); Cholesterol 252 mg/dL (<200); Estimated Glomerular Filt Rate > 60; HDL Cholesterol 43 mg/dL (>40); Potassium 4.0 mmol/L (3.3-5.1); Sodium 141 mmol/L (135-145); Triglycerides 144 mg/dL (<150)
== END 2025-03-24 10:31 | disposition home or self-care (01) ==
LOC: HO.CHCLDS 10:30
PROVIDERS: Visit Provider Internal Medicine
DX: I10 Essential (primary) hypertension (principal); E03.9 Hypothyroidism, unspecified; E78.00 Pure hypercholesterolemia, unspecified
CPT/HCPCS: 36415; 80048; 80061; 84443

== ENCOUNTER 2025-06-23 11:39 | Outpatient (REF) | payer OTHER, SELFPAY | END 2025-06-23 11:40 | disposition home or self-care (01) | LOC: HO.LNP 11:39 | PROVIDERS: PCP Internal Medicine; Visit Provider Obstetrics & Gynecology | DX: Z01.419 Encounter for gynecological examination (general) (routine) without abnormal findings (principal); R31.29 Other microscopic hematuria; R30.0 Dysuria | CPT/HCPCS: 87086 ==

== ENCOUNTER 2025-06-23 11:39 | Outpatient (AMB) | payer OTHER, SELFPAY ==
--- NOTE | 2025-06-23 12:06 | MHC.OFFVIS ---
Vital Signs 06/23/25 12:07 Height 5 ft 1 in Weight 214 lb BMI 40.4 BP 124/86 Intake Visit Reasons: COOK HELPER PASTRY annual exam Child Development Teacher Required: No Information Interpreted: non-clinical & clinical Cmm Operator: Cmm Operator Present (Ebony CHRISTINA) Accompanied by: Self / Same As Patient Allergies aspirin Allergy (Unknown, Uncoded 06/23/25 12:10) stomach upset Post menopausal: Yes HPI Comments Details: Presenting for annual exam. Complaining of dysuria last week Last Pap/HPV was negative in 2 Last Mammogram was BI-RADS 2 in 09/13 No previous screening Colonoscopy done [facility] Medical History Postoperative hypothyroidism Thyroid disease Hyperparathyroidism Vitamin D deficiency Dysphagia HTN (hypertension) Subclinical hyperthyroidism Multinodular thyroid Surgical History History of thyroid surgery Family History Father Heart disease Mother Thyroid disease Social History Household Members: Children Housing: House Do you presently have visiting nurse or other home services: No Alcohol intake: never Patient Tobacco Use Status: Never used Tobacco Current occupational status: employed Current occupation: VASCULAR ULTRASOUND TECHNICIAN Sexual orientation: Straight/Heterosexual Gender identity: Female Female Reproductive History Menstrual Age of Menarche: 11 Total pregnancies: 7 Number of Living Children: 3 Ab induced: 3 Ab spontaneous: 1 Date of last pap smear: 07/26/22 Date of Mammogram: 08/22/22 Review of Systems Const All systems reviewed & are unremarkable except as noted in HPI and below Card Reports as per HPI Resp Reports as per HPI GI Reports as per HPI and Reports no additional complaints Reports as per HPI Physical Exam Vital Signs: Last Vital Signs BP 124/86 06/23/25 12:07 BMI result Body Mass Index 40.4 Const General: cooperative, healthy appearing and comfortable Chest Chest palpation & inspection: normal inspection of the chest and normal palpation of entire chest wall Breast/axilla inspection: normal inspection of the breasts and normal inspection of the axillae Breast/axilla palpation: normal palpation of the breasts, normal palpation of the axillae and no axillary lymphadenopathy Resp Effort & Inspection: normal respiratory effort Auscultation: clear to auscultation bilaterally Percussion: percussion normal Cardio Palpation: normal PMI Rate: regular rate Rhythm: regular rhythm Heart sounds: no murmurs and no rubs Peripheral pulses: Peripheral pulses 2+ throughout GI Inspection: Yes normal to inspection Palpation (GI): Soft to palpation, nontender, no guarding, not rigid and No hepatosplenomegaly present Percussion: Yes normal to percussion Auscultation: normal bowel sounds Rectal Exam - Female: deferred General: Yes bladder normal to palpation External Female Exam: No lesion Speculum Exam - Vagina: normal appearance of the vagina, normal palpation, normal vaginal discharge and not erythematous Speculum Exam - Cervix: normal appearance of the cervix and normal palpation Bimanual exam- vagina & uterus: normal bimanual exam, normal palpation, uterine size normal, bladder normal to palpation, consistency normal and normal palpation Bimanual Exam- Adnexa, other: normal adnexae, no masses and no tenderness Results AMB Urinalysis Automated WC UR Glucose Last Edit by Syeda Dennis LPN on 06/23/25 12:43 UR Ketone Last Edit by Syeda Dennis LPN on 06/23/25 12:43 UR Specific [place] 1.015 Last Edit by Syeda Dennis LPN on 06/23/25 12:43 UR Blood Small Last Edit by Syeda Dennis LPN on 06/23/25 12:43 UR Ph 5.5 Last Edit by Syeda Dennis LPN on 06/23/25 12:43 UR Protein Last Edit by Syeda Dennis LPN on 06/23/25 12:43 UR Nitrite Last Edit by Syeda Dennis LPN on 06/23/25 12:43 UR Leukocytes Last Edit by Syeda Dennis LPN on 06/23/25 12:43 Results Reviewed Results Reviewed: Laboratory Last Values Urine pH (Clinic) 5.5 06/23/25 12:42 Specific [place] (Clinic) 1.015 06/23/25 12:42 Urine Blood (Clinic) Small 06/23/25 12:42 Assessment & Plan Assessment & Plan (1) Well woman exam: Code(s): Z01.419 - Encounter for gynecological examination (general) (routine) without abnormal findings Category: Medical Plan: Cotesting not indicated Mammogram ordered. GI referral placed for screening colonoscopy Counseled the patient about the recommended dietary allowance of 1000 mg of Calcium & 600 IU of vitamin D. The patient was instructed to perform monthly self-breast exams and to schedule an annual exam in a year; All questions answered and the patient verbalized understanding. Instructed the patient to schedule annual exam in a year (2) Microscopic hematuria: Code(s): R31.29 - Other microscopic hematuria Category: Medical Plan: Urine dip showed microscopic hematuria, urine culture sent. We will send prescription for nitrofurantoin for 100 mg p.o. b.i.d. for 5 days to the patient Will repeat urine dip in 2 weeks. Discussed with the patient the possible causes of microscopic hematuria including but not limited to: interstitial cystitis, polyps, stones, masses, urethral inflammatory processes and others. If Urine Culture is negative and repeat urine dip in 2 weeks shows persistent microscopic hematuria, will proceed with CT abdomen/pelvis and urology referral. Instructions given the patient to to call or go to emergency room in case of persistence of her symptoms, fever above 100.4, flank pain or any other concerns, and to schedule a 2 week urine dip follow-up appointment. All questions answered and the patient verbalized understanding. Orders: Orders MM tomosynthesis screening BI Today Z12.31 - Encounter for screening mammogram for malignant neoplasm of breast Urine Culture Today R30.0 - Dysuria Referrals Gastroenterology Referral Z12.11 - Encounter for screening for malignant neoplasm of colon Medications: New nitrofurantoin monohyd/m-cryst 100 mg (Macrobid) 100 mg PO BID 10 caps 0RF 5 days Coding Level of Care Code Est Pt Level 3 (63933) Est Pt Prev Care 40-64y(76731) Diagnoses Well woman exam Z01.419 Microscopic hematuria R31.29
[2025-06-23 12:07] VITALS: BP 124/86; BMI 40.4
--- OUTSIDE RECORDS SUMMARY | 2025-06-23 13:21 | XMS_ITS | Encounter Summary ---
Author Organization [employer] Address [address] [facility] 7 [place] [address] Care Team Providers Care Remote Operations Producer Name Role Phone Kathy Cox MD Primary Care Provider [phone] Encounter Details Date Type Department Care Team (Late st Contact Info) Description 03/24/2025 Orders Only [facility] [address] [place], [place] [phone] Kathy Cox MD [address] [place] [address] Social History Tobacco Use Types Packs/Day Years [...] as of this encounter Plan of Treatment Not on file documented as of this encounter Visit Diagnoses Not on filedocumented in this encounter Additional Health Concerns Assessment Noted Time PHQ-9 Depression Total Score: 17 025 9:47 AM EST documented as of this encounter Care Teams Remote Operations Producer Relationship Specialty Start Date End Date Kathy Cox MD [address] [place] [phone] PCP - General Internal Medicine 04/02/19 documented as of this encounter
--- OUTSIDE RECORDS SUMMARY | 2025-06-23 13:21 | XMS_ITS | Encounter Summary ---
Author Organization [employer] Address [address] [facility] 7 [place] [address] Care Team Providers Care Photonic Laboratory Technician Name Role Phone Kathy Cox MD Primary Care Provider [phone] Encounter Details Date Type Department Care Team ([facility] st Contact Info) Description 04/28/2024 Orders Only [facility]S [address] [place], [place] [phone] Kathy Cox MD [address] [place] [address] Social History Tobacco Use Types Packs/Day Years [...] documented as of this encounter Care Teams Photonic Laboratory Technician Relationship Specialty Start Date End Date Kathy Cox MD [address] [place] [address] PCP - General Internal Medicine 04/02/19 documented as of this encounter
--- OUTSIDE RECORDS SUMMARY | 2025-06-23 13:21 | XMS_ITS | Clinical Summary ---
Author Organization [employer] Address [address] [facility] 7t [place] [address] Care Team Providers Care Talent Director Name Role Phone Kathy Cox MD Primary Care Provider [phone] Allergies Active Allergy Reactions Criticality Noted Date [...] as needed for allergies. 10/26/19 22 Active ketotifen (Zaditor) 0.025 % ophthalmic solutionIndicatio ns:Allergic conjunctivitis of both eyes Administer 1 drop into both eyes 2 times daily. 10 mL 10/11/19 23 Active Blood Pressure kitIndications:Pr imary hypertension To check the BP daily 1 kit 05/14/20 23 Active topiramate (Topamax) 25 MG tabletIndications :Frontal headache TAKE ONE TABLET BY MOUTH EVERY MORNING 30 tablet 11 05/05/20 24 Active atenolol (Tenormin) 25 MG tablet TAKE ONE TABLET BY MOUTH EVERY MORNING 90 tablet 1 10/21/19 25 Active famotidine (Pepcid) 20 MG tabletIndications :Gastro-esophagea l reflux disease without esophagitis TAKE ONE TABLET BY MOUTH AT BEDTIME 90 tablet 1 10/21/19 25 Active triamcinolone (Kenalog) 0.1 % ointmentIndicatio ns:Irritant dermatitis APPLY A THIN LAYER TOPICALLY TWICE A DAY TO THE AFFECTED AREA(S) 30 g 10/21/19 25 Active Diclofenac Sodium 1 % gelIndications:Ch ronic left-sided low back pain without sciatica,Hypercho lesterolemia To apply to the affected area 3 times a day 100 g 11/26/19 25 Active methocarbamol (Robaxin) 750 MG tabletIndications :Chronic left-sided low back pain without sciatica Take 1 tablet (750 mg) by mouth 4 times daily for 10 days. 40 tablet 11/26/19 25 Active losartan-hydroCHL OROthiazide (Hyzaar) 100-25 MG tabletIndications :Primary hypertension Take 1 tablet by mouth Once per day. 30 tablet 11 5 10:52 AM EST 02/19/20 25 2025 Active levothyroxine (Synthroid, Levoxyl) 125 MCG tabletIndications :Acquired hypothyroidism Take 1 tablet (125 mcg) by mouth Once per day. 30 tablet 3 5 10:52 AM EST 02/19/20 25 Active PARoxetine (Paxil) 10 MG tabletIndications :Anxiety TAKE ONE TABLET BY MOUTH EVERY MORNING 30 tablet 11 05/25/20 25 Active PARoxetine (Paxil) 10 MG tabletIndications :Anxiety Take 1 tablet (10 mg) by mouth in the morning. 30 tablet 11 04/28/20 24 2024 Discontinued Active Problems Problem Noted Date Diagnosed Date [...] symptoms in the context of family issues. Sergul reported experiencing depressive symptoms for more than [...] using open-ended questions. Guanakito was self-referred to [facility]; intake completed. Pt will be also referred to psychopharmacology with Estevan Castro clinician will provide additional support as needed. Acquired hypothyroidism 10/09/2022 Hyperparathyroidism 10/09/2022 Hypertensive disorder 05/14/2022 Obesity 05/14/2022 Photosensitivity 05/14/2022 Depression 06/14/2014 Encounters Date Type Department Care Team Description 05/25/2025 Refill [facility] [address] [place] [address] Kathy Cox MD Anxiety 04/20/2025 Telephone [facility] [address] [place] [address] Kathy Cox MD Chart Prep 03/25/2025 Results Follow-Up [facility] [address] [place] [address] Pat Hankins RN Basic Metabolic Panel, TSH W/Reflex to FT4, Lipid Panel, Standard 03/24/2025 Orders Only [facility] [address] [place] [address] Kathy Cox MD from Last 3 Months [...] 02/18/2025 3:14 PM EDT Plan of Treatment Health Maintenance Due Date Last Done Comments CT Colonography 1975 Colonoscopy 1975 FIT 1975 Sigmoidoscopy 1975 Family Planning (PISQ) 1989 RSV Patients and Patients Aged 60 years or older (1 - Risk 50-74 years 1-dose series) 02/02/2024 Zoster Vaccines (1 of 2) 02/02/2024 Mammogram [...] 07/26/2027 HPV/Cotest 07/26/2027 07/26/2022, 12/26/2021 Lipid Panel 03/24/2030 03/24/2025, 06/0 09/2024, 04/28/2024, Additional history exists DTaP/Tdap/Td Vaccines (4 - Td or Tdap) 12/07/2031 12/06/2021, 12/06/2021, 09/03/2011, Additional history exists Hepatitis B Vaccines Completed 09/21/2016, 09/21/2016, 04/12/2016, [...] Procedure Name Priority Date/Time Associated Diagnosis Comments LIPID PANEL, STANDARD Routine 03/24/2025 10:33 AM EDT Hypercholesterolemia TSH W/REFLEX TO FT4 Routine 03/24/2025 1 0:33 AM EDT Acquired hypothyroidism BASIC METABOLIC PANEL Routine 03/24/2025 10:33 AM EDT Primary hypertension LAB COLOGUARD COLON CANCER SCREEN Routine 07/04/2024 [...] Recently Relevant to Health Maintenance Results * TSH W/Reflex to FT4 (03/24/2025 10:33 AM EDT) TSH reflex Free T4 3.83 0.32 - 4.0 uIU/mL [facility] Blood Venous blood specimen / Unknown 03/24/2025 10:33 AM EDT 03/24/2025 1:58 PM EDT us Kathy Cox MD LAB BLOOD ORDERABLES Final Result [facility] [address] [place] [phone] * (ABNORMAL) Lipid Panel, Standard (03/24/2025 10:33 AM EDT) Triglycerides 144 <150 mg/dL [facility] Comment:Desirable Triglyceri de: less than 150 mg/dLBorderline High Triglyceride 150-199 mg/dLHigh Triglyceride: 200-499 mg/dLVery High Triglyceride: greater than or equal to 5OO mg/dL Cholesterol 252(H) <200 mg/dL [facility] Comment:Desirable Cholestero l: less than 200 mg/dLBorderline High Cholesterol: 200-239 mg/dLHigh Cholesterol: greater than 239 mg/dL LDL Cholesterol Calculated 181(H) <100 mg/dL [facility] Comment:Desirable LDL: less than 100 mg/dLNear Optimal/Above Optimal LDL: 110- 129 mg/dLBorderline High LDL: 130-159 mg/dLHigh LDL: 160-189 mg/dLVery High LDL: greater than or equal to 190 mg/dL HDL Cholesterol 43 >40 mg/dL [facility] Comment:Desirable HDL: great er than 40 mg/dL Note: This HDL assay may give artificially low results in patients with liver disease. Blood Venous blood specimen / Unknown 03/24/2025 10:33 AM EDT 03/24/2025 1:58 PM EDT us Kathy Cox MD LAB BLOOD ORDERABLES Final Result Performing Organization Address City/[facility]/ZIP Co de Phone Number [facility] [address] [place] [phone] * (ABNORMAL) Basic Metabolic Panel (03/24/2025 10:33 AM EDT) Sodium 141 135 - 145 mmol/L [facility] Potassium 4.0 3.3 - 5.1 mmol/L [facility] Chloride 107 96 - 108 mmol/L [facility] Carbon Dioxide 26 22 - 29 mmol/L [facility] Anion Gap 12 12 - 20 [facility] Urea Nitrogen (BUN) 17(H) 9 - 16 mg/dL [facility] Creatinine, Serum 0.68 0.5 - 1.4 mg/dL [facility] Estimated Glomerular Filt Rate >60 [facility] Comment:Chronic Kidney Disea se: Estimated GFR < 60 mL/min/1.14o4Rnaaso Kidney Disease: Estimated GFR < 15 mL/min/1.73m2 Glucose 105 60 - 115 mg/dL [facility] Calcium 8.4 8.4 - 10.2 mg/dL [facility] Blood Venous blood specimen / Unknown 03/24/2025 10:33 AM EDT 03/24/2025 1:58 PM EDT us Kathy Cox MD LAB BLOOD ORDERABLES Final Result Performing Organization Address City/[facility]/ZIP Co de Phone Number [facility] [address] [place] [phone] * Cologuard?? colon cancer screening (07/04/2024 8:30 AM EST) Cologuard Result Negative Negative 07/13/19 10:02 AM [facility] FL3XX (CLIA #:[id number]) Comment: NEGATIVE TEST RESULT. A negative Cologuard [...] Chauhan et al, N Engl J Med 2014;370(14):3344-3042) The normal value (reference range) for this assay is negative. COLOGUARD RE-SCREENING RECOMMENDATION: Periodic colorectal cancer screening is an important part of preventive healthcare for asymptomatic individuals at average risk for colorectal cancer. Following a negative Cologuard result, the [place] [employer] and U.S. Multi-Society Task Force screening guidelines recommend a Cologuard re-screening interval of 3 years. References: [place] [employer] Guideline for Colorectal Cancer Screening: https://www.cancer.org/cancer/vayda-pvhfty-daiaiv/zxxpxejzv-lfyfkwvpv-tzdcqrn/ac s-rec ommendations.html.; Rod DK, Charissa CR, Mary SotoK, Colorectal Cancer Screening: Recommendations for Physicians and Patients from the U.S. Multi-Society Task Force on Colorectal Cancer Screening , Am J Gastroenterology 2017; 112:2984-6249. TEST DESCRIPTION: Composite algorithmic analysis of stool [...] (Allen Cabral al, N Engl J Med 2014;370(14):0713-5150.) Cologuard may produce a false negative or false positive result (no colorectal cancer or precancerous polyp present at colonoscopy follow up). A negative Cologuard test result does not guarantee the absence of CRC or advanced adenoma (pre-cancer). The current Cologuard screening interval is every 3 years. ([place] [employer] and U.S. Multi-Society Task Force). Cologuard performance data in a 10,000 patient pivotal study using colonoscopy as the reference method can be accessed at the following location: www.[employer]/results. Additional description of the Cologuard test process, warnings and precautions can be found at www.[employer].com. Stool specimen (specimen) 07/04/2024 8:30 AM EST 07/07/2024 12:40 PM EST us Kathy Cox MD LAB MOLECULAR DIAGNOSTICS O RDERABLES Final Result FL3XX (CLIA #:[id number]) [address] [place] [address], * HIV-1/2 Antigen and Antibodies, Fourth Generation, with Reflexes (04/28/2024 11:56 AM EST) HIV AB/AG Nonreactive Nonreactive [facility] Comment:HIV-1 p24 Ag and/or HIV-1/HIV-2 Ab not detected.A test result that is nonreactive does not exclude thepossibility of exposure to or infection with HIV-1 and/orHIV-2. Nonreactive results in this assay for individualswith prior exposure to HIV-1 and/or HIV-2 may be due toantigen and antibody levels that are below the limit ofdetection of this assay.The [employer] HIV Ag/Ab Combo assay result andsupplemental assay results should be interpreted inconjunction with the patient's clinical presentation,history and other laboratory results. If the results areinconsistent with clinical evidence, additional testing issuggested to confirm the result. Blood Venous blood specimen / Unknown 04/28/2024 11:56 AM EST 04/28/2024 2:23 PM EST us Kathy Cox MD LAB BLOOD ORDERABLES Final Result [facility] [address] [place] [phone] * HPV mRNA E6/E7 w/Reflex to HPV Genotypes 16, 18/45 (07/26/2022 1:27 PM EST) HPV nRNA E6/E7 Not Detected Not Detected [facility] Comment:Methodology: Transcr iption-Mediated AmplificationThis assay detects E6/E7 viral messenger RNA (mRNA) from 14high-risk HPV types (16,18,31,33,35,39,45,51,52,56,58,59,66,68).Cervical sources are required for HPV testing.If a vaginal source from a patient who has had atotal hysterectomy with removal of cervix wassubmitted, please contact the testing laboratoryfor alternative testing options.For additional information, please refer tohttp://education.[employer]/faq/ZFJ498p9(This link if provided for information/educational purposes only.)THIS TEST WAS PERFORMED AT:[facility] [place] [address] ([facility])[place] [phone] CASTELAN MD HPV mRNA E6/E7 [facility] HPV 16 RNA [facility] HPV 18/45 RNA [facility] 07/26/2022 1:27 PM EST 07/26/2022 5:00 PM EST [facility] External Provider LAB CYT OLOGY ORDERABLES Final Result [facility] [address] [place] [phone] * Pap Smear (07/26/2022 1:27 PM EST) 07/26/2022 1:27 PM EST 07/26/2022 5:00 PM EST Narrative [facility] - 08/03/2022 4:58 PM EST ----- ------- Name: Guanakito Corcoran Age/Sex: 47/F : 1975 Unit#: [id number] Attend Dr: Jim Smith MD Re07/26/22 Status: DEP REF Location: HO.LNP Disch: ----- ------- SPEC : [id number] RECD: 07/26/22-170 STATUS: JENNIFER MCGRATH NUM: [id number] FABIO: 07/26/22-[address]: Jim Smith MD ENTERED: 07/26/22-1852 SP TYPE: Pap Smr OTHR DR: Kathy Cox MD ORDERED: Pap Smear Interpretation Satisfactory for evaluation. Negative for intraepithelial lesion or malignancy. Atrophic. HPV mRNA E6/E7: NOT DETECTED This assay detects E6/E7 viral messenger RNA (mRNA) from 14 high-risk HPV types (16, 18, 31, 33, 35, 39, 45, 51, 52, 56, 58, 59, 66, 68) HPV testing performed by [employer], [place], [place]. See reference laboratory portion of the EMR for entire report. Clinical Information LMP: Unknown Previous PAP test: Unknown, WNL Material Received ThinPrep-Cervical Copies To: Kathy Cox MD [address] [place] [address] Jim Smith MD [address] [place] [address] Dr. Merino [address] [place] [address] [phone] ----- ------- Signed (signature on file) Rebeca Juárez Judy 08/03/22 [id number] ----- ------- END OF REPORT [facility] External Provider LAB CYT OLOGY ORDERABLES Final Result [facility] [address] [place] [phone] [phone] * HEPATITIS C AB W/REFL TO HCV RNA, QN, PCR (12/27/2021 11:29 AM EDT) HEPATITIS C ANTIBODY NON-REACT ERNIE NON-REACT ERNIE [facility] INDEX 0.04 <1.00 [facility] Comment: HCV antibody was non-reactive. There is no laboratory evidence of HCV infection. In most cases, no further action is required. However, if recent HCV exposure is suspected, a test for HCV RNA (test code 81545) is suggested. For additional information please refer to http://education.[employer]/faq/ROX94u6 (This link is being provided for informational/ educational purposes only.) 12/27/2021 11:2 9 AM EDT us Kathy Cox MD HISTORICAL/NON ORDERABLE ALEXANDRA HOLMAN Final Result [facility] [address] from Last 3 Months or Most Recently Relevant to Health Maintenance Insurance [facility] 3 Care Teams Talent Director Relationship Specialty Start Date End Date Kathy Cox MD [address] [place] [phone] PCP - General Internal Medicine 04/02/19
--- OUTSIDE RECORDS SUMMARY | 2025-06-23 13:22 | XMS_ITS | Encounter Summary ---
Author Organization [employer] Address [address] [facility] 7 [place] [address] Care Team Providers Care Director Internal Audit Name Role Phone Kathy Cox MD Primary Care Provider [phone] Reason for Visit * Reason Comments Med Refill Encounter Details Date Type Department Care Team ([facility] st Contact Info) Description 12/25/2023 Refill [facility] [address] [place], [place] [phone] Kathy Cox MD [address] [place] [address] Social History Tobacco Use Types Packs/Day Years [...] documented as of this encounter Care Teams Director Internal Audit Relationship Specialty Start Date End Date Kathy Cox MD [address] [place] [phone] PCP - General Internal Medicine 04/02/19 documented as of this encounter
--- OUTSIDE RECORDS SUMMARY | 2025-06-23 13:22 | XMS_ITS | Encounter Summary ---
Author Organization [employer] Address [address] [facility] 7 [place] [address] Care Team Providers Care Dredge Captain Name Role Phone Kathy Cox MD Primary Care Provider [phone] Reason for Visit * Reason Comments Med Refill Encounter Details Date Type Department Care Team ([facility] st Contact Info) Description 06/12/2023 Refill [facility] [address] [place], [place] [phone] Kathy Cox MD [address] [place] [address] Essential (primary) hypertension Social History Tobacco Use [...] documented as of this encounter Care Teams Dredge Captain Relationship Specialty Start Date End Date Kathy Cox MD [address] [place] [phone] PCP - General Internal Medicine 04/02/19 documented as of this encounter
--- OUTSIDE RECORDS SUMMARY | 2025-06-23 13:22 | XMS_ITS | Encounter Summary ---
Author Organization [employer] Address [address] [facility] [address] [place] [address] Care Team Providers Care Bun Machine Operator Name Role Phone Kathy Cox MD Primary Care Provider [phone] Reason for Visit * Reason Onset Date Comments Med Refill 10/19/2024 Encounter Details Date Type Department Care Team (Late st Contact Info) Description 10/19/2024 Refill [facility] [address] [place], [place] [phone] Kathy Cox MD [address] [place] [address] Irritant dermatitis Social History Tobacco Use Types [...] documented as of this encounter Care Teams Bun Machine Operator Relationship Specialty Start Date End Date Kathy Cox MD [address] [place] [id number] PCP - General Internal Medicine 04/02/19 documented as of this encounter
== END 2025-06-23 12:08 | disposition home or self-care (01) ==
LOC: HO.HWS 11:39
PROVIDERS: PCP Internal Medicine; Visit Provider Obstetrics & Gynecology
DX: Z01.419 Encounter for gynecological examination (general) (routine) without abnormal findings (principal); R31.29 Other microscopic hematuria
CPT/HCPCS: 99213; 99396; 99459